=== PATIENT | female | born 1960 | race Caucasian/White ===

== ENCOUNTER 2019-07-19 10:09 | Outpatient (CLI) | payer OTHER, SELFPAY ==
--- NOTE | 2019-07-19 | CT_ITS ---
WS: [id number] CT ABDOMEN PELVIS TECHNIQUE: Contrast-enhanced CT of the abdomen and pelvis with coronal and sagittal reformatted image s. CLINICAL INFORMATION: RENAL MASS DLP: 979.[address] scans at [facility] use at least one of these dose optimization techniques: automat ed exposure control; mA and/or kV adjustment per patient size (includes targeted exams where dose is matched to clinical indication); or iterative reconstruction. FINDINGS: Comparison ultrasound earlier today. There is a large lobulated heterogeneously enhancing right upper pole renal mass measuring 7.1 x 6.1 x 10.2 CM. This appears to originate from the upper pole right k idney. Indentation on the right hepatic lobe. Right adrenal gland is not well identified. No hydronep hrosis in right kidney. Normal ureteral emptying on the delayed imaging.Enlarged adjacent aortocaval lymph nodes measuring 15 mm and 12 mm. No other visualized lymphadenopathy. Normal left adrenal gland. Normal left kidney and ureteral emptying. Multiple low-attenuation lesions in the liver are unchanged in appearance on the delayed imaging and most consistent with small hepat ic cysts. No enhancement to indicate metastatic disease. Largest hepatic cyst measures 10 mm. Enlarge ment of the right hepatic lobe. Gallbladder appears unremarkable. Normal spleen. Small esophageal hia elizabet hernia. Lung bases are well aerated. No free fluid in the pelvis. Normal caliber abdominal aorta. No inguina l lymphadenopathy. No inguinal lymphadenopathy. Vacuum disc phenomenon L5-S1. Lobulated enhancing uterus with suspected fibroid. This can be further evaluated with ultrasound. Inge pected fibroid measures 2.5 x 2.4 cm Notified Alon Garzon MD at 07/19/2019 1:[address]/CT abdomen pelvis w con* [id number] IMPRESSION: 1. Heterogeneously enhancing right upper pole renal mass consistent with neopl asm measuring 6.1 x 10.2 x 7.1 cm. Associated mass effect on the undersurface r ight hepatic lobe. 2. No hydronephrosis in right kidney. Renal veins are displaced but appear pat ent. 3. Enlarged adjacent aortocaval lymph nodes measuring 15 mm and 12 mm. 4. Low-attenuation lesions in the liver consistent with hepatic cysts. 5. Small left renal cyst. 6. Gallbladder appears unremarkable. 7. Lobulated enhancing uterus with suspected fibroid. This can be further eval uated with ultrasound. Suspected fibroid measures 2.5 x 2.4 cm
--- NOTE | 2019-07-19 09:46 | US_ITS ---
WS: [id number] ULTRASOUND ABDOMEN LIMITED CLINICAL INFORMATION: acute cholecystitis COMPARISON: None. FINDINGS: Liver Size: Normal. Craniocaudal length: 10.5 cm. Echogenicity: Normal. Surface nodularity: None. Mass (size and location): None. Bile ducts Intrahepatic ducts: Normal. Common bile duct diameter: 0.3 cm. Gallbladder Sludge Gallstones: None. Gallbladder sludge: Present Gallbladder wall thickening: None. Pericholecystic fluid: None. Sonographic Dumont sign: Absent. Pancreas Normal as visualized Right kidney: Large right renal mass associated vascularity measuring 9.0 x 6.5 x8.4 cm most consiste nt with renal cell neoplasm. CT is pending. Abdominal aorta and IVC Visualized portions are normal. Ascites: None. US/US gall bladder [id number] IMPRESSION: 1. Large right solid and vascular renal mass most consistent with renal cell n eoplasm measuring 9.0 x 6[address] is pending. 2. Sludge in the gallbladder. No cholelithiasis. No evidence of acute cholecys titis.
[2019-07-19] MEDS: iohexol 300 mg/mL 100 mL Btl IV (12:11)
== END 2019-07-19 10:10 | disposition home or self-care (01) ==
LOC: RAD 10:15
PROVIDERS: Family Provider Family Medicine; PCP Family Medicine; Visit Provider Family Medicine
DX: K81.0 Acute cholecystitis (principal); N28.89 Other specified disorders of kidney and ureter; R59.9 Enlarged lymph nodes, unspecified; K76.9 Liver disease, unspecified; N28.1 Cyst of kidney, acquired; N39.0 Urinary tract infection, site not specified
CPT/HCPCS: 74177; 76705; 80053; 81000; 85025

== ENCOUNTER 2019-10-09 14:19 | Outpatient (CLI) | payer BC, SELFPAY ==
--- NOTE | 2019-10-09 17:38 | ONC CON_ITS ---
Dr. Bai New Patient Note Patient: Jovita Beyer Unit #: [id number]: 1960 Dicatated By: Esa Bia M.D.Date of Visit: Oct 09, 2019 Onc MED New Patient/Consult Referring Physician: Francheska Rivas Chief Complaint: Renal cell carcinoma. History of Present Illness: This is a 59-year-old woman with grade 2 papillary renal cell carcinoma, stage III (pT3a, pN1, M0). She has been in good general health. She had presented in June with chills and right upper quadrant abdominal pain. An abdominal ultrasound on 07/19/2019 showed a large right renal mass measuring 9.0 x 6.5 x 8.0 cm, consistent with renal cell neoplasm. A subsequent CT abdomen/pelvis confirmed an enhancing right upper pole renal mass measuring 7.1 x 6.1 x 10.2 cm. The renal veins appeared patent. Enlarged adjacent aortocaval lymph nodes measured 15 and 12 mm. Multiple low-attenuation lesions in the liver were felt to be most consistent with small hepatic cysts. The largest measured 10 mm. Lobulated enhancing uterus had suspected fibroid measuring 2.5 x 2.4 cm. She was referred to Dr. Cortney Sepulveda, at [facility]. She had further evaluation with MRI of the abdomen on 07/31/2019. It showed a large cystic and solid mass in the superior pole of the right kidney measuring 7.6 x 9.5 x 8.0 cm, highly suspicious for primary renal neoplasm. It was noted to abut the adjacent hepatic parenchyma, direct invasion not excluded. It was also noted to abut the infrahepatic IVC with mild narrowing. The right adrenal gland was not visualized due to probable direct invasion. There was no evidence for renal vein tumoral thrombus. An enlarged right pericaval lymph node measuring 1.1 x 1.9 cm was concerning for mili metastasis. There were multiple hepatic cysts and solitary cavernous hemangioma noted within the right lobe of the liver, but without evidence for definite hepatic metastasis. Restaging chest CT on 08/22/2019 showed multiple indeterminate bilateral pulmonary nodules measuring up to 2 mm. Multiple hyper and hypoattenuating lesions in the liver were felt to be concerning for hepatic metastases and upper abdominal lymphadenopathy and left upper quadrant mesenteric soft tissue nodules were also concerning for metastases. There were multiple heterogenous thyroid lobe nodules, most suspicious in the inferior left thyroid lobe measuring approximately 12 mm. On 08/23/2019 she underwent right robotic assisted laparoscopic radical nephrectomy with right pericaval lymph node dissection and wedge liver biopsy. Pathology showed grade 2 papillary renal cell carcinoma, type 2, measuring 7.5 x 6.8 x 5.5 cm. Tumor was noted to extend into the renal sinus, and there was evidence for vascular invasion. The margins were uninvolved. There was involvement in 1 of 5 hilar lymph nodes. The liver biopsy showed benign liver with hemorrhage and no evidence of malignancy. She had an uneventful postoperative course, and she is seen now in regard to adjuvant therapy. She says she is feeling good now. She is walking with her every day and she is able to do light work at home. She has good appetite. She had a weight loss of approximately 30 pounds prior to the surgery, which she says was intentional. Her weight has been stable since the surgery. She does not have fever or night sweats, but she occasionally does feel warm at night. She has no shortness of breath, cough, or chest pain. She currently has no GI or complaints. She has a little arthritis pain, in her thumb and in her left shoulder. She does not complain of headache or dizziness. She has no focal neurologic symptoms. Past Medical History: She has a history of hypertenison, but not requiring medication for at least 8 years. Past Surgical History: She underwent right robotic-assisted, laparoscopic radical nephrectomy with right paracaval lymph node dissection and with liver wedge biopsy on 08/23/2019. She has had no prior surgeries. Medications: Cholecalciferol 1 Capsule (of 250 mcg ) Oral daily, Glucosamine HCl 1 Capsule (of 1000 mg) Tablet Oral b.i.d., Senna 1 Capsule (of 8.6 mg) Oral daily, Vitamin C 1 Capsule (of 1000 mg) Oral daily Allergies: No Known Allergies. Social History: Ms. Beyer is and she is retired. She has a history of smoking up to 1/2 pack of cigarettes daily for about 15 years. She quit smoking in July 2019. She does not drink alcohol. Family History: Father of heart attack in his 60s. Mother is in good health at age 82. Two sisters also are in good health. Review Of Symptoms: Constitutional - She is feeling good. Her energy is fair. She does some light housework and light walking daily. Her appetite is good. She had weight loss of 30 lbs. prior to surgery, which she says was intentional. Her weight recently has been stable. No fever, night sweats, hot flashes. ECOG score is 1, Eyes - No change in vision, ENMT - No hearing loss. She does report having tinnitus. No sinus congestion/drainage. No mouth sores. No sore throat or difficulty swallowing, Respiratory - No shortness of breath. No cough. No pleuritic pain or hemoptysis, Cardiovascular - No angina pain. No palpitations, Gastrointestinal - No nausea or vomiting. No heartburn or acid reflux. No diarrhea or constipation. No blood in the stool or black stools, Genitourinary (F) - No dysuria or hematuria. No urinary frequency. No urgency or incontinence, Musculoskeletal - She has some arthritis pain in her left shoulder and thumb. This is chronic for her, Integumentary - No skin complications, Neurologic - No headache or dizziness. No numbness or tingling. No other focal neurologic symptoms, Psychiatric - No anxiety or depression. No insomnia. Vital Signs: Performed on Oct 09, 2019 14:47: 0, 18.88, 1.67 sq.m, 68.00 in, 100 %, 79 /min, 20 /min, 127/77 mm(hg), 99.1 F (HIGH), and 124.2 lbs (HIGH). Physical Examination: Constitutional - She appears to be in good general health, Eyes - Sclerae nonicteric. Conjunctivae clear, ENMT - No lesions noted in the oral cavity, Neck - No mass or thyromegaly, Hematologic/Lymphatic - No cervical, clavicular, or axillary adenopathy, Respiratory - Lungs are clear with good air movement bilaterally, Cardiovascular - Heart rhythm is regular. There is no murmur, gallop, or rub noted, Abdomen - Soft and non-tender. The right upper quadrant incision appears well-healed. Liver and spleen are not enlarged. There is no abdominal mass or ascites noted and there is no inguinal adenopathy, Back/Spine - No spine or CVA tenderness noted, Extremities - No edema. Dorsalis pedis pulses are palpable bilaterally, Integumentary - No rashes. No suspicious skin lesions noted, Neurologic - No focal neurologic deficits noted. Impression: 1. Patient with grade 2 papillary renal cell carcinoma, type 2, stage III (pT3a, pN1, M0). 2. She underwent right robotic assisted, laparoscopic radical nephrectomy with right paracaval lymph node dissection and wedge liver biopsy on 08/23/2019. 3. She has a history of hypertension, not requiring medication. Plan: The pathology findings and clinical implications were reviewed with the patient. She has stage III papillary renal cell carcinoma. She has had a complete resection with the laparoscopic radical nephrectomy, but she has had increased risk for recurrence due to the renal sinus invasion and the involved hilar lymph node. As such, she would be an appropriate candidate for adjuvant therapy, preferably with immunotherapy, but only in the context of a clinical trial. The only treatment option off trial would be sunitinib, but she does not meet appropriate criteria for it, and the benefit with sunitinib is questionable to begin with. As such, I will begin a search for any available clinical trials utilizing immunotherapy. If none are available, she will just have to be followed on close observation. Signed By: Esa Bai M.D. <<Signature on File>>
== END 2019-10-09 14:20 | disposition home or self-care (01) ==
LOC: ONCMED 14:24
PROVIDERS: PCP Family Medicine; Visit Provider Internal Medicine Medical Oncology
DX: C64.1 Malignant neoplasm of right kidney, except renal pelvis (principal); C77.1 Secondary and unspecified malignant neoplasm of intrathoracic lymph nodes; Z90.5 Acquired absence of kidney; Z87.891 Personal history of nicotine dependence
CPT/HCPCS: 99205

== ENCOUNTER 2019-12-24 08:17 | Outpatient (CLI) | payer BC, SELFPAY ==
--- NOTE | 2019-12-24 08:28 | CT_ITS ---
WS: [id number] CT CHEST, ABDOMEN AND PELVIS WITH CONTRAST HISTORY: RENAL CELL CARCINOMA, status post RIGHT nephrectomy since the prior study. TECHNIQUE: Contiguous 5 mm axial imaging performed through the chest, abdomen and pelvis with IV cont rast, oral contrast has been provided. Coronal and sagittal reformats chest. Coronal and sagittal ref ormats through the abdomen and pelvis. All CT scans at [facility] use at least one of the se dose optimization techniques: automated exposure control; mA and/or kV adjustment per patient size (includes targeted exams where dose is matched to clinical indication); or iterative reconstruction. CONTRAST: Visipaque 320; 95 mL IV. DLP: 966.23 mGy.cm COMPARISON: 07/19/[address]: No pulmonary nodule, mass, pneumonia or effusion. No mediastinal or hilar adenopathy. Yancy l size aorta and pulmonary arteries. Heart size is normal. Abdomen CT: Abnormal appearance of the liver. On today's examination early imaging during arterial en hancement has been obtained. There is a lobulated hypervascular mass in the superior RIGHT lobe of th e liver measuring 3.3 x 5.2 cm. There are 2 additional hypervascular masses measuring 1.0 and 1.6 cm in the RIGHT lobe. Suspect these are benign hemangiomas with additional scattered hepatic cysts. Dao ngiomas were probably present on the prior examination but as the phase of enhancement was more delay ed these is partially filled and very difficult to visualize. Surface of the liver is irregular from cirrhosis. No bile duct dilatation. Gallbladder is negative. Pancreas is normal size. Pancreatic duct is dilated.. There is a lobulated cystic area measuring 10 mm extending from the pancreatic duct int o the posterior body of the pancreas. Spleen is normal size. No adrenal abnormalities. RIGHT kidney has been surgically removed since the prior study. No recurrent mass. No LEFT renal mass or obstruction. Mild atherosclerosis aorta. No definite lymph nodes are appreciated. There is marked fecal retention. Increased soft tissue in the RIGHT colon may be due to underdistenti on with oral contrast. Neoplastic involvement is not completely excluded. Wall thickening measures up to 8 mm in the ascending colon. Pelvic CT: Mildly enlarged heterogeneously enhancing uterus. Probably fibroid uterus with the uterus extending to the RIGHT of midline. No free fluid. Urinary bladder is moderately well distended. No osteoblastic bone disease. There are a few sclerotic foci within the bones of the pelvis which are probably bone islands. CT/CT chest abd pel w con* IMPRESSION: 1. Status post RIGHT nephrectomy since the prior study of 07/19/2019. No recurr ent mass at the renal bed. 2. Soft tissue thickening involving the ascending colon. Colitis or under dist ention with oral contrast. Tumor invasion thought less likely but still a possi bility. 3. Numerous hypervascular masses within the liver. These are probably hemangio mas. Probably present on the prior study but not as well-visualized due to late phase of imaging after contrast. There are additional cysts also. 4. No pulmonary nodules. 5. No ascites or adenopathy. 6. 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 Recommendation: Short-term, three-month, follow-up two phase CT recommended for reevaluation of the liver, pancreas and ascending colon and RIGHT renal bed. H epatic CT should be performed with delayed imaging to better evaluate the liver for hemangiomas. If there was a concern for neoplastic invasion of the colon d uring surgical nephrectomy, colonoscopy should be obtained also.
[2019-12-24] MEDS: iohexol 300 mg/mL 50 mL Btl PO (08:38)
[2019-12-24 08:47] LABS: Basophils # 0.1 10^3/uL (0.0-0.1); Basophils % 1.4 %; Eosinophils # 0.2 10^3/uL (0.0-0.8); Eosinophils % 3.6 %; Hemoglobin 13.4 g/dL (11.5-15.3); Lymphocytes # 1.7 10^3/uL (0.8-4.8); Lymphocytes % 41.1 %; Mean Corpuscular HGB Conc 32.7 g/dL (30.0-36.0); Mean Corpuscular Volume 94.9 fL (81-99); Mean Platelet Volume 8.9 fL (7.4-10.4); Monocytes # 0.3 10^3/uL (0.2-0.9); Monocytes % 7.8 %; Neutrophils # 1.93 10^3/uL (1.8-7.7); Neutrophils % 45.9 %; Nucleated Red Blood Cells % 0 %; Platelet Count 254 10^3/cmm (130-400); Red Blood Count 4.32 10^6/uL (4.1-5.3); Red Cell Distribution Width 13.1 % (12.1-15.1); White Blood Count 4.2 10^3/uL (4.0-10.0)
[2019-12-24 09:03] LABS: Alanine Aminotransferase 29 U/L (0-33); Albumin Level 4.7 g/dL (3.5-5.2); Alkaline Phosphatase 80 IU/L (35-105); Anion Gap 13.4 (5-19); Aspartate Amino Transferase 19 U/L (0-32); Blood Urea Nitrogen 24 mg/dL (8-23); Calcium 9.7 mg/dL (8.5-10.5); Carbon Dioxide 26 mmol/L (22-29); Chloride 106 mmol/L (98-107); Globulin 2.4 g/dL (1.3-4.6); Glomerular Filtration Rate 38.2 mL/min (90-130); Glucose 98 mg/dL (65-115); Osmolality Calculated 296 mOsm/kg (285-295); Potassium 4.4 mmol/L (3.5-5.1); Sodium 141 mmol/L (136-145); Total Bilirubin 0.8 mg/dL (0.15-1.2); Total Protein 7.1 g/dL (6.6-8.7)
[2019-12-24] MEDS: iohexol 300 mg/mL 100 mL Btl IV (09:48)
== END 2019-12-24 08:18 | disposition home or self-care (01) ==
LOC: CT 08:21
PROVIDERS: PCP Family Medicine; Visit Provider Internal Medicine Medical Oncology
DX: C64.1 Malignant neoplasm of right kidney, except renal pelvis (principal); Z90.5 Acquired absence of kidney; R16.0 Hepatomegaly, not elsewhere classified
CPT/HCPCS: 36415; 71260; 74177; 80053; 85025

== ENCOUNTER 2019-12-26 13:46 | Outpatient (CLI) | payer BC, SELFPAY ==
--- NOTE | 2019-12-29 20:52 | ONC FU_ITS ---
Dr. Bai Patient Follow-Up Note Patient: Jovita Beyer Unit #: [id number]: 1960 Dicatated By: Esa Bai M.D.Date of Visit:Dec 26, 2019 Onc Med Follow-up/Prog Note Chief Complaint: Renal cell carcinoma. History of Present Illness: This is a 59-year-old woman with grade 2 papillary renal cell carcinoma, stage III (pT3a, pN1, M0). She has been in good general health. She had presented in June with chills and right upper quadrant abdominal pain. An abdominal ultrasound on 07/19/2019 showed a large right renal mass measuring 9.0 x 6.5 x 8.0 cm, consistent with renal cell neoplasm. A subsequent CT abdomen/pelvis confirmed an enhancing right upper pole renal mass measuring 7.1 x 6.1 x 10.2 cm. The renal veins appeared patent. Enlarged adjacent aortocaval lymph nodes measured 15 and 12 mm. Multiple low-attenuation lesions in the liver were felt to be most consistent with small hepatic cysts. The largest measured 10 mm. Lobulated enhancing uterus had suspected fibroid measuring 2.5 x 2.4 cm. She was referred to Dr. Cortney Sepulveda, at [facility]. She had further evaluation with MRI of the abdomen on 07/31/2019. It showed a large cystic and solid mass in the superior pole of the right kidney measuring 7.6 x 9.5 x 8.0 cm, highly suspicious for primary renal neoplasm. It was noted to abut the adjacent hepatic parenchyma, direct invasion not excluded. It was also noted to abut the infrahepatic IVC with mild narrowing. The right adrenal gland was not visualized due to probable direct invasion. There was no evidence for renal vein tumoral thrombus. An enlarged right pericaval lymph node measuring 1.1 x 1.9 cm was concerning for mili metastasis. There were multiple hepatic cysts and solitary cavernous hemangioma noted within the right lobe of the liver, but without evidence for definite hepatic metastasis. Restaging chest CT on 08/22/2019 showed multiple indeterminate bilateral pulmonary nodules measuring up to 2 mm. Multiple hyper and hypoattenuating lesions in the liver were felt to be concerning for hepatic metastases and upper abdominal lymphadenopathy and left upper quadrant mesenteric soft tissue nodules were also concerning for metastases. There were multiple heterogenous thyroid lobe nodules, most suspicious in the inferior left thyroid lobe measuring approximately 12 mm. On 08/23/2019 she underwent right robotic assisted laparoscopic radical nephrectomy with right pericaval lymph node dissection and wedge liver biopsy. Pathology showed grade 2 papillary renal cell carcinoma, type 2, measuring 7.5 x 6.8 x 5.5 cm. Tumor was noted to extend into the renal sinus, and there was evidence for vascular invasion. The margins were uninvolved. There was involvement in 1 of 5 hilar lymph nodes. The liver biopsy showed benign liver with hemorrhage and no evidence of malignancy. She had an uneventful postoperative course. I had seen her initially on 10/09/2019 in regard to possible adjuvant therapy. With non-clear cell histology, there was no approved treatment to offer her. Following the visit, we began a fairly exhaustive search for active clinical trials, and we found none. In the meantime, it also reached out to pharmaceutical companies, and she did get approved for off label use of Keytruda. She is seen for a follow-up visit. She is feeling good generally. She has no complaints other than some mild arthritis in her hands and in her left shoulder. It is managed adequately with glucosamine. Medications: Cholecalciferol 1 Capsule (of 250 mcg ) Oral daily, Glucosamine HCl 1 Capsule (of 1000 mg) Tablet Oral b.i.d., Senna 1 Capsule (of 8.6 mg) Oral daily, Vitamin C 1 Capsule (of 1000 mg) Oral daily Allergies: No Known Allergies. Review of Systems: Constitutional - She is feeling good generally and her energy is good. She has normal activity without resitrctions. Her appetite is good and her weight is up 6 pounds from inital visit. No fevers. She has occasional episodes of feeling warm. ECOG score is 0, ENMT - No sinus congestion/drainage. No mouth sores. No sore throat or difficulty swallowing, Hematologic/Lymphatic - No abnormal bruising or bleeding, Respiratory - No shortness of breath. No cough. No pleuritic pain or hemoptysis, Cardiovascular - No angina pain. No palpitations, Gastrointestinal - No nausea or vomiting. No heartburn or acid reflux. No diarrhea or constipation. No blood in the stool or black stools, Genitourinary (F) - No dysuria or hematuria. No urinary frequency. No urgency or incontinence, Musculoskeletal - She has arthitic pain in her hands and her left shoulder, adequately managed with Glucosamine, Neurologic - No headache or dizziness. No numbness or tingling. No other focal neurologic symptoms, Psychiatric - No anxiety or depression. No insomnia. Vital Signs: Performed on Dec 26, 2019 14:25 Height - 68.00 in Weight - 130.6 lbs (HIGH) BSA - 1.71 sq.m BMI - 19.86 Temperature - 98.3 F (LOW) Pulse - 70 /min Respiration - 18 /min BP - 155/68 mm(hg) (HIGH) O2 Sat - 97 % Pain - 0 Physical Examination: Constitutional - She appears to be in good general health, Eyes - Sclerae nonicteric. Conjunctivae clear, ENMT - No lesions noted in the oral cavity, Hematologic/Lymphatic - No cervical, clavicular, or axillary adenopathy, Respiratory - Lungs are clear with good air movement bilaterally, Cardiovascular - Heart rhythm is regular. There is no murmur, gallop, or rub noted, Abdomen - Soft. Liver and spleen are not enlarged. There is no abdominal mass or ascites noted and there is no inguinal adenopathy, Extremities - No edema, Neurologic - No focal neurologic deficits noted. Impression: 1. Patient with grade 2 papillary renal cell carcinoma, type 2, stage III (pT3a, pN1, M0). 2. She underwent right robotic assisted, laparoscopic radical nephrectomy with right paracaval lymph node dissection and wedge liver biopsy on 08/23/2019. 3. She has a history of hypertension, not requiring medication. We have discussed the fact that with a relatively large primary tumor and with lymph node involvement, she is definitely at high risk for recurrence. With non-clear cell histology there is no approved adjuvant therapy. We unfortunately were not able to find an active clinical trial for which she would be eligible for participation. She has been given approval for off label use of Keytruda. We discussed the fact that there is no documented benefit for treating [id number] renal cell carcinoma with immunotherapy and certainly no data to indicate benefit in the adjuvant setting. Nonetheless, both the patient and her are quite adamant that she would prefer to have treatment without proven benefit, even at the risk of side effects, rather than do nothing. Plan: She is aware that there are risks for immune mediated toxicities with pembrolizumab which may include enteritis, pneumonitis, endocrine dysfunction, hepatic dysfunction, renal dysfunction, and skin toxicities, among others. As she is highly motivated to have treatment, she will be given the option of treatment with pembrolizumab 200 mg by IV infusion every 3 weeks for 1 year. Signed By: Esa Bai M.D. <<Signature on File>>
== END 2019-12-26 13:47 | disposition home or self-care (01) ==
LOC: ONCMED 13:48
PROVIDERS: PCP Family Medicine; Visit Provider Internal Medicine Medical Oncology
DX: C64.1 Malignant neoplasm of right kidney, except renal pelvis (principal); I10 Essential (primary) hypertension; Z79.899 Other long term (current) drug therapy
CPT/HCPCS: 99214

== ENCOUNTER 2020-01-03 06:08 | Outpatient (CLI) | payer BC, SELFPAY ==
[2020-01-03] MEDS: sodium chloride 0.9% 250 ML 75 ML IV (13:55)
== END 2020-01-03 06:09 | disposition home or self-care (01) ==
LOC: ONCMED 06:09
PROVIDERS: PCP Family Medicine; Visit Provider Internal Medicine Medical Oncology
DX: Z51.12 Encounter for antineoplastic immunotherapy (principal); C64.1 Malignant neoplasm of right kidney, except renal pelvis
CPT/HCPCS: 96413; J7050; J9271

== ENCOUNTER 2020-01-09 10:09 | Outpatient (CLI) | payer BC, SELFPAY ==
--- NOTE | 2020-01-09 10:25 | MM_ITS ---
WS: [id number] BILATERAL DIGITAL SCREENING MAMMOGRAM WITH CAD CLINICAL INFORMATION: SCREENING HISTORY: Screening mammogram. No current complaints. COMPARISON: TECHNIQUE: Bilateral CC and MLO. FINDINGS: The breast are composed of extremely dense tissue, which can limit the detection of small underlying mass lesions. No suspicious focal mass, asymmetry, calcifications, or architectural distortion. No ev idence of malignancy. MM/[place] [id number] IMPRESSION: BI-RADS: 1-Negative FOLLOW UP: 1 Year Follow-up Recommend return to annual screening mammography.
== END 2020-01-09 10:10 | disposition home or self-care (01) ==
LOC: RADSHAW 10:14
PROVIDERS: PCP Family Medicine; Visit Provider Obstetrics & Gynecology
DX: Z12.31 Encounter for screening mammogram for malignant neoplasm of breast (principal)
CPT/HCPCS: 77067

== ENCOUNTER → 2020-01-14 14:05 | Outpatient (BNVA) | payer BC, SELFPAY | PROVIDERS: PCP Family Medicine; Visit Provider Obstetrics & Gynecology | DX: Z12.4 Encounter for screening for malignant neoplasm of cervix (principal) | CPT/HCPCS: 88175 ==

== ENCOUNTER 2020-01-23 06:12 | Outpatient (CLI) | payer BC, SELFPAY ==
[2020-01-23 09:23] LABS: Basophils # 0.1 10^3/uL (0.0-0.1); Basophils % 1.5 %; Eosinophils # 0.2 10^3/uL (0.0-0.8); Eosinophils % 5.3 %; Hematocrit 40.1 % (37.0-47.0); Hemoglobin 13.2 g/dL (11.5-15.3); Lymphocytes # 1.6 10^3/uL (0.8-4.8); Lymphocytes % 40.5 %; Mean Corpuscular HGB Conc 32.9 g/dL (30.0-36.0); Mean Corpuscular Hemoglobin 31.5 pg (28.0-34.0); Mean Corpuscular Volume 95.7 fL (81-99); Monocytes # 0.3 10^3/uL (0.2-0.9); Monocytes % 8.1 %; Neutrophils # 1.75 10^3/uL (1.8-7.7); Neutrophils % 44.6 %; Nucleated Red Blood Cells % 0 %; Platelet Count 243 10^3/cmm (130-400); Red Blood Count 4.19 10^6/uL (4.1-5.3); Red Cell Distribution Width 13.1 % (12.1-15.1); White Blood Count 3.9 10^3/uL (4.0-10.0)
[2020-01-23 10:00] LABS: Alanine Aminotransferase 27 U/L (0-33); Albumin Level 4.7 g/dL (3.5-5.2); Alkaline Phosphatase 95 IU/L (35-105); Anion Gap 13.3 (5-19); Aspartate Amino Transferase 20 U/L (0-32); Blood Urea Nitrogen 22 mg/dL (8-23); Calcium 9.7 mg/dL (8.5-10.5); Carbon Dioxide 28 mmol/L (22-29); Chloride 102 mmol/L (98-107); Globulin 2.6 g/dL (1.3-4.6); Glomerular Filtration Rate 35.3 mL/min (90-130); Glucose 98 mg/dL (65-115); Osmolality Calculated 291 mOsm/kg (285-295); Potassium 4.3 mmol/L (3.5-5.1); Sodium 139 mmol/L (136-145); Thyroid Stimulating Hormone 1.86 uIU/mL (0.27-4.20); Total Bilirubin 0.8 mg/dL (0.15-1.2); Total Protein 7.3 g/dL (6.6-8.7)
== END 2020-01-23 06:13 | disposition home or self-care (01) ==
LOC: ONCMED 06:13
PROVIDERS: PCP Family Medicine; Visit Provider Internal Medicine Medical Oncology
DX: C64.1 Malignant neoplasm of right kidney, except renal pelvis (principal)
CPT/HCPCS: 36415; 80053; 84443; 85025

== ENCOUNTER 2020-01-24 05:45 | Outpatient (CLI) | payer BC, SELFPAY ==
[2020-01-24] MEDS: sodium chloride 0.9% 250 ML 75 ML IV (08:50)
--- NOTE | 2020-01-24 08:50 | ONC FU_ITS ---
Dr. Bai Patient Follow-Up Note Patient: Jovita Byeer Unit #: [id number]: 1960 Dicatated By: Esa Bai M.D.Date of Visit:Jan 24, 2020 Onc Med Follow-up/Prog Note Chief Complaint: Renal cell carcinoma. History of Present Illness: This is a 59-year-old woman with grade 2 papillary renal cell carcinoma, stage III (pT3a, pN1, M0). She has been in good general health. She had presented in June with chills and right upper quadrant abdominal pain. An abdominal ultrasound on 07/19/2019 showed a large right renal mass measuring 9.0 x 6.5 x 8.0 cm, consistent with renal cell neoplasm. A subsequent CT abdomen/pelvis confirmed an enhancing right upper pole renal mass measuring 7.1 x 6.1 x 10.2 cm. The renal veins appeared patent. Enlarged adjacent aortocaval lymph nodes measured 15 and 12 mm. Multiple low-attenuation lesions in the liver were felt to be most consistent with small hepatic cysts. The largest measured 10 mm. Lobulated enhancing uterus had suspected fibroid measuring 2.5 x 2.4 cm. She was referred to Dr. Cortney Sepulveda, at [facility]. She had further evaluation with MRI of the abdomen on 07/31/2019. It showed a large cystic and solid mass in the superior pole of the right kidney measuring 7.6 x 9.5 x 8.0 cm, highly suspicious for primary renal neoplasm. It was noted to abut the adjacent hepatic parenchyma, direct invasion not excluded. It was also noted to abut the infrahepatic IVC with mild narrowing. The right adrenal gland was not visualized due to probable direct invasion. There was no evidence for renal vein tumoral thrombus. An enlarged right pericaval lymph node measuring 1.1 x 1.9 cm was concerning for mili metastasis. There were multiple hepatic cysts and solitary cavernous hemangioma noted within the right lobe of the liver, but without evidence for definite hepatic metastasis. Restaging chest CT on 08/22/2019 showed multiple indeterminate bilateral pulmonary nodules measuring up to 2 mm. Multiple hyper and hypoattenuating lesions in the liver were felt to be concerning for hepatic metastases and upper abdominal lymphadenopathy and left upper quadrant mesenteric soft tissue nodules were also concerning for metastases. There were multiple heterogenous thyroid lobe nodules, most suspicious in the inferior left thyroid lobe measuring approximately 12 mm. On 08/23/2019 she underwent right robotic assisted laparoscopic radical nephrectomy with right pericaval lymph node dissection and wedge liver biopsy. Pathology showed grade 2 papillary renal cell carcinoma, type 2, measuring 7.5 x 6.8 x 5.5 cm. Tumor was noted to extend into the renal sinus, and there was evidence for vascular invasion. The margins were uninvolved. There was involvement in 1 of 5 hilar lymph nodes. The liver biopsy showed benign liver with hemorrhage and no evidence of malignancy. She had an uneventful postoperative course. I had seen her initially on 10/09/2019 in regard to possible adjuvant therapy. With non-clear cell histology, there was no approved treatment to offer her. Following the visit, we began a fairly exhaustive search for active clinical trials, and we found none. In the meantime, it also reached out to pharmaceutical companies, as she was strongly motivated to have some form of adjuvant therapy. She subsequently was approved for off label use of Keytruda, and she was given the option to have a year of adjuvant therapy at a standard dose of 200 mg by IV infusion every 3 weeks. She has a previous history of hypertension. She has had no other ongoing medical illnesses. She also has a history of smoking for 15 years, up to 1/2 pack of cigarettes daily. She quit smoking in July 2019. INTERIM HISTORY: She began cycle 1 of pembrolizumab on 01/03/2020. She tolerated it without acute toxicity. She is seen for a follow-up visit. She has been feeling good generally. At times she has had fatigue, but her energy lately has been good. She has normal activity. Her appetite is good and her weight is stable. She has no fever or night sweats. She has no shortness of breath, cough, or chest pain. She currently has no GI or complaints. She has no significant joint or bone pain. She does not complain of headache or dizziness. She has no focal neurologic symptoms. She has had no skin rash or other skin changes. Medications: Cholecalciferol 1 Capsule (of 250 mcg ) Oral daily, Glucosamine HCl 1 Capsule (of 1000 mg) Tablet Oral b.i.d., Senna 1 Capsule (of 8.6 mg) Oral daily, Vitamin C 1 Capsule (of 1000 mg) Oral daily Allergies: No Known Allergies. Review of Systems: Constitutional - Her energy lately has been good, though at times she has had fatigue. Appetite is good and weight is stable. No fever. She has some hot flashes and sweating at night. ECOG score is 0, ENMT - She has had a little bit of sinus congestion/drainage, attributable to the weather. No mouth sores. No sore throat or difficulty swallowing, Hematologic/Lymphatic - No abnormal bruising or bleeding, Respiratory - No shortness of breath. No cough. No pleuritic pain or hemoptysis, Cardiovascular - No angina pain. No palpitations, Gastrointestinal - No nausea or vomiting. No heartburn or acid reflux. No diarrhea or constipation. No blood in the stool or black stools, Genitourinary (F) - No dysuria or hematuria. No urinary frequency. No urgency or incontinence, Musculoskeletal - No joint or bone pain, Integumentary - No skin rash, Neurologic - No headache or dizziness. No numbness or tingling. No other focal neurologic symptoms, Psychiatric - No anxiety or depression. No insomnia. Vital Signs: Performed on Jan 24, 2020 08:08 Height - 68.00 in Weight - 136.2 lbs (HIGH) BSA - 1.74 sq.m BMI - 20.71 Temperature - 97.4 F (LOW) Pulse - 91 /min Respiration - 17 /min BP - 133/66 mm(hg) O2 Sat - 99 % Pain - 0 Physical Examination: Constitutional - She looks good generally, Eyes - Sclerae nonicteric. Conjunctivae clear, ENMT - No lesions noted in the oral cavity, Hematologic/Lymphatic - No cervical, clavicular, or axillary adenopathy, Respiratory - Lungs are clear with good air movement bilaterally, Cardiovascular - Heart rhythm is regular. There is no murmur, gallop, or rub noted, Abdomen - Soft. Liver and spleen are not enlarged. There is no abdominal mass or ascites noted and there is no inguinal adenopathy, Extremities - No edema, Neurologic - No focal neurologic deficits noted. Lab/Imaging: Test performed on Jan 23, 2020 09:05 Sodium 139 mmol/L TSH 1.86 uIU/mL Potassium 4.3 mmol/L Chloride 102 mmol/L CO2 28 mmol/L Anion Gap 13.3 BUN 22 mg/dL Creatinine 1.5 mg/dL Cr Clearance (Est) 36.8300 mL/min eGFR 35.3 mL/min Glucose 98 mg/dL Osmolality - Calculated 291 mOsm/kg Calcium 9.7 mg/dL Protein, Total 7.3 g/dL Albumin 4.7 g/dL Globulin 2.6 g/dL Bilirubin, Total 0.8 mg/dL ALT (SGPT) 27 U/L AST (SGOT) 20 U/L Alkaline Phosphatase 95 IU/L Neutrophils 1.75 10 3/uL Eosinophils 0.2 10 3/uL Basophils 0.1 10 3/uL Neutrophil % 44.6 % Eosinophil % 5.3 % Basophils % 1.5 % NRBC % 0 % Impression: 1. Patient with grade 2 papillary renal cell carcinoma, type 2, stage III (pT3a, pN1, M0). 2. She underwent right robotic assisted, laparoscopic radical nephrectomy with right paracaval lymph node dissection and wedge liver biopsy on 08/23/2019. 3. She has a history of hypertension, not requiring medication. In the setting of a relatively large primary tumor and with lymph node involvement, she was advised that she was at high risk for recurrence. However, with non-clear cell histology there was no approved adjuvant therapy, and we were unable to find an active clinical trial for which she was eligible for participation. She She was strongly motivated to have some form of adjuvant therapy, and we were then able to get approval for off label use of Keytruda. She began cycle 1 of adjuvant therapy with pembrolizumab on 01/03/2020. She tolerated it without acute toxicity, and at this point she has no apparent side effects. Plan: She will proceed with cycle 2 of adjuvant pembrolizumab at 200 mg by IV infusion. She will return for treatment in 3 weeks and for a follow-up visit in 6 weeks. Signed By: Esa Bai M.D. <<Signature on File>>
== END 2020-01-24 05:46 | disposition home or self-care (01) ==
LOC: ONCMED 05:46
PROVIDERS: PCP Family Medicine; Visit Provider Internal Medicine Medical Oncology
DX: Z51.12 Encounter for antineoplastic immunotherapy (principal); C64.1 Malignant neoplasm of right kidney, except renal pelvis; C77.2 Secondary and unspecified malignant neoplasm of intra-abdominal lymph nodes; I10 Essential (primary) hypertension; Z90.5 Acquired absence of kidney; Z79.899 Other long term (current) drug therapy
CPT/HCPCS: 96413; 99214; J7050; J9271

== ENCOUNTER 2020-02-14 06:03 | Outpatient (CLI) | payer BC, SELFPAY | END 2020-02-14 06:04 | disposition home or self-care (01) | LOC: ONCMED 06:04 | PROVIDERS: PCP Family Medicine; Visit Provider Internal Medicine Medical Oncology | DX: Z51.12 Encounter for antineoplastic immunotherapy (principal); C64.1 Malignant neoplasm of right kidney, except renal pelvis | CPT/HCPCS: 96413; J7050; J9271 ==

== ENCOUNTER 2020-03-26 12:32 | Outpatient (CLI) | payer BC, SELFPAY ==
[2020-03-26 13:19] LABS: Basophils # 0.1 10^3/uL (0.0-0.1); Basophils % 1.3 %; Eosinophils # 0.1 10^3/uL (0.0-0.8); Eosinophils % 1.8 %; Hematocrit 39.7 % (37.0-47.0); Lymphocytes # 1.2 10^3/uL (0.8-4.8); Lymphocytes % 26.5 %; Mean Corpuscular HGB Conc 32.7 g/dL (30.0-36.0); Mean Corpuscular Volume 97.8 fL (81-99); Mean Platelet Volume 9.3 fL (7.4-10.4); Monocytes # 0.3 10^3/uL (0.2-0.9); Monocytes % 7.2 %; Neutrophils # 2.81 10^3/uL (1.8-7.7); Nucleated Red Blood Cells % 0 %; Platelet Count 278 10^3/cmm (130-400); Red Blood Count 4.06 10^6/uL (4.1-5.3); Red Cell Distribution Width 12.8 % (12.1-15.1); White Blood Count 4.5 10^3/uL (4.0-10.0)
[2020-03-26 13:50] LABS: Alanine Aminotransferase 14 U/L (0-33); Albumin Level 4.5 g/dL (3.5-5.2); Alkaline Phosphatase 95 IU/L (35-105); Anion Gap 13.2 (5-19); Aspartate Amino Transferase 13 U/L (0-32); Blood Urea Nitrogen 14 mg/dL (8-23); Calcium 9.5 mg/dL (8.5-10.5); Carbon Dioxide 27 mmol/L (22-29); Chloride 103 mmol/L (98-107); Globulin 2.5 g/dL (1.3-4.6); Glomerular Filtration Rate 35.2 mL/min (90-130); Glucose 112 mg/dL (65-115); Osmolality Calculated 289 mOsm/kg (285-295); Potassium 4.2 mmol/L (3.5-5.1); Sodium 139 mmol/L (136-145); Thyroid Stimulating Hormone 1.06 uIU/mL (0.27-4.20); Total Bilirubin 0.7 mg/dL (0.15-1.2)
[2020-03-26 14:32] LABS: Free T4 Free Thyroxine 1.13 ng/dL (0.82-1.77)
== END 2020-03-26 12:33 | disposition home or self-care (01) ==
LOC: ONCMED 12:34
PROVIDERS: PCP Family Medicine; Visit Provider Internal Medicine Medical Oncology
DX: C64.1 Malignant neoplasm of right kidney, except renal pelvis (principal); E03.9 Hypothyroidism, unspecified; Z51.81 Encounter for therapeutic drug level monitoring
CPT/HCPCS: 36591; 80053; 84439; 84443; 85025

== ENCOUNTER 2020-03-27 06:06 | Outpatient (CLI) | payer BC, SELFPAY ==
--- NOTE | 2020-04-01 22:10 | ONC FU_ITS ---
[facility] Patient Note Patient: Jovita Beyer Unit #: [id number]: 1960 Dictated By: Dorothy HayesDate of Visit: Mar 27, 2020 Onc MED Follow-Up/Prog Note Chief Complaint: Renal cell carcinoma. History of Present Illness: Mrs Beyer is a 60-year-old woman with grade 2 papillary renal cell carcinoma, stage III (pT3a, pN1, M0). She has been in good general health. She had presented in June with chills and right upper quadrant abdominal pain. An abdominal ultrasound on 07/19/2019 showed a large right renal mass measuring 9.0 x 6.5 x 8.0 cm, consistent with renal cell neoplasm. A subsequent CT abdomen/pelvis confirmed an enhancing right upper pole renal mass measuring 7.1 x 6.1 x 10.2 cm. The renal veins appeared patent. Enlarged adjacent aortocaval lymph nodes measured 15 and 12 mm. Multiple low-attenuation lesions in the liver were felt to be most consistent with small hepatic cysts. The largest measured 10 mm. Lobulated enhancing uterus had suspected fibroid measuring 2.5 x 2.4 cm. She was referred to Dr. Cortney Sepulveda, at [facility]. She had further evaluation with MRI of the abdomen on 07/31/2019. It showed a large cystic and solid mass in the superior pole of the right kidney measuring 7.6 x 9.5 x 8.0 cm, highly suspicious for primary renal neoplasm. It was noted to abut the adjacent hepatic parenchyma, direct invasion not excluded. It was also noted to abut the infrahepatic IVC with mild narrowing. The right adrenal gland was not visualized due to probable direct invasion. There was no evidence for renal vein tumoral thrombus. An enlarged right pericaval lymph node measuring 1.1 x 1.9 cm was concerning for mili metastasis. There were multiple hepatic cysts and solitary cavernous hemangioma noted within the right lobe of the liver, but without evidence for definite hepatic metastasis. Restaging chest CT on 08/22/2019 showed multiple indeterminate bilateral pulmonary nodules measuring up to 2 mm. Multiple hyper and hypoattenuating lesions in the liver were felt to be concerning for hepatic metastases and upper abdominal lymphadenopathy and left upper quadrant mesenteric soft tissue nodules were also concerning for metastases. There were multiple heterogenous thyroid lobe nodules, most suspicious in the inferior left thyroid lobe measuring approximately 12 mm. On 08/23/2019 she underwent right robotic assisted laparoscopic radical nephrectomy with right pericaval lymph node dissection and wedge liver biopsy. Pathology showed grade 2 papillary renal cell carcinoma, type 2, measuring 7.5 x 6.8 x 5.5 cm. Tumor was noted to extend into the renal sinus, and there was evidence for vascular invasion. The margins were uninvolved. There was involvement in 1 of 5 hilar lymph nodes. The liver biopsy showed benign liver with hemorrhage and no evidence of malignancy. She had an uneventful postoperative course. Dr Bai had seen her initially on 10/09/2019 in regard to possible adjuvant therapy. With non-clear cell histology, there was no approved treatment to offer her. Following the visit, we began a fairly exhaustive search for active clinical trials, and we found none. In the meantime, we also reached out to pharmaceutical companies, as she was strongly motivated to have some form of adjuvant therapy. She subsequently was approved for off label use of Keytruda, and she was given the option to have a year of adjuvant therapy at a standard dose of 200 mg by IV infusion every 3 weeks. She has a previous history of hypertension. She has had no other ongoing medical illnesses. She also has a history of smoking for 15 years, up to 1/2 pack of cigarettes daily. She quit smoking in July 2019. INTERIM HISTORY: She began cycle 1 of pembrolizumab on 01/03/2020. She tolerated it without acute toxicity. Her last pembrolizumab was given on 02/14/2020 at 200 mg. She is here today for follow-up and consideration of cycle 4 pembrolizumab. She states overall she is doing well. She states she has not had any fever or chills. She is had no known Covid exposure or symptoms or recent testing. She states her appetite is good. Her energy is fair. She denies any worsening shortness of breath orthopnea. She denies any chest pain or palpitations. She has had no pneumonitis symptoms. She denies diarrhea or abdominal pain. She denies any constipation. She states her urinary function is normal for her as well. She denies any new pain. Overall she states she feels that she is doing good. She states that she has not had treatment since 02/14/[address] Bai said we were going to 6-week treatments . In review of physician orders she was due for pembrolizumab in 3 weeks from the 02/14/2020 visit and follow-up in 6 weeks and repeat pembrolizumab. Her ECOG is 0. Past Medical History: History of hypertenison Past Surgical History: Right laparoscopic nephrectomy, paracaval lymph node dissection, liver biopsy in 2019 Allergies: No Known Allergies. Medications: Cholecalciferol 1 Capsule (of 250 mcg ) Oral daily Glucosamine HCl 1 Capsule (of 1000 mg) Tablet Oral b.i.d. Senna 1 Capsule (of 8.6 mg) Oral daily Vitamin C 1 Capsule (of 1000 mg) Oral daily Family History: Ms. Beyer's mother is alive. Ms. Beyer's father at age 65: myocardial infarction. Father of heart attack in his 60s. Mother is in good health at age 82. Two sisters also are in good health. Social History: Ms. Beyer is and she is retired. Ms. Beyer quit smoking less than one year ago but had smoked for 15 years. She has no history of drinking. Ms. Beyer reports the following support systems: lives with spouse, significant other, family, or friends, lives in own house, supportive family/friends willing to assist with needs, and adequate transportation available for expected visits. Her diet consists of regular meals. She indicates her activity level as: regular exercise. She has a history of smoking up to 1/2 pack of cigarettes daily for about 15 years. She quit smoking in July 2019. She does not drink alcohol. Review Of Symptoms: Constitutional Denies fevers, chills, night sweats, excessive fatigue or weight loss. Allergic/Immunologic No reactions. Eyes Denies significant visual changes. No diplopia. No amaurosis. ENMT Denies changes in hearing, sore throat, mouth sores, difficulty or changes in swallowing ability, and/or sinus drainage. Hematologic/Lymphatic Denies easy bruising or bleeding. The patient denies any tender or palpable lymph nodes. Respiratory Denies dyspnea on exertion, chest pain, cough or hemoptysis. Denies orthopnea. Cardiovascular Denies anginal chest pain, palpitations or orthopnea. Gastrointestinal Denies nausea, vomiting, diarrhea, GI bleeding, or constipation. Denies change in bowel habits and/or stool color, no heartburn or early satiety. Genitourinary (F) No hematuria, hesitancy, incontinence, vaginal bleeding, discharge or other problems with urination. Musculoskeletal Denies joint pain, swelling or redness. No decreased range of motion. Integumentary Denies chronic rashes, inflammation, ulcerations or skin changes. Neurologic Denies headache, blurred vision, and no areas of focal weakness or numbness. Normal gait. No sensory problems. Psychiatric Denies insomnia, depression, oswaldo or mood swings. Vital Signs: Performed on Mar 27, 2020 10:08 Height - 68.00 in Weight - 135.2 lbs (LOW) BSA - 1.73 sq.m BMI - 20.56 Temperature - 98.7 F Pulse - 76 /min Respiration - 18 /min BP - 120/80 mm(hg) O2 Sat - 98 % Pain - .0,0 - Fully active, able to carry on all predisease activities without restrictions. (ECOG) Physical Examination: Constitutional Alert, oriented, no acute distress. Skin pink, warm and dry. Head Normocephalic; atraumatic. Eyes Conjunctivae and sclerae are clear and without icterus. Pupils are reactive and equal. Neck Supple without masses or thyromegaly. No jugular venous distension. Hematologic/Lymphatic No petechiae or purpura. No tender or palpable lymph nodes in the cervical or supraclavicular areas. Respiratory Lungs are clear to auscultation without rhonchi or wheezing. Cardiovascular Regular rate and rhythm of heart without murmurs,clicks, gallops or rubs. Back/Spine Non-tender to palpation. Extremities No visible deformities, no cyanosis, clubbing or edema. Musculoskeletal No tenderness or swelling, normal range of motion without obvious weakness. Integumentary No rashes or lesions. Neurologic No sensory or motor deficits, normal cerebellar function, normal gait. Psychiatric Alert and oriented times three. Coherent speech. Verbalizes understanding of our discussions today. Laboratory:Test performed on Mar 26, 2020 12:48 Sodium 139 mmol/L T4, Free 1.13 ng/dL TSH 1.06 uIU/mL Potassium 4.2 mmol/L Chloride 103 mmol/L CO2 27 mmol/L Anion Gap 13.2 BUN 14 mg/dL Creatinine 1.5 mg/dL Cr Clearance (Est) 37.65 mL/min eGFR 35.2 mL/min Glucose 112 mg/dL Osmolality - Calculated 289 mOsm/kg Calcium 9.5 mg/dL Protein, Total 7.0 g/dL Albumin 4.5 g/dL Globulin 2.5 g/dL Bilirubin, Total 0.7 mg/dL ALT (SGPT) 14 U/L AST (SGOT) 13 U/L Alkaline Phosphatase 95 IU/L WBC 4.5 10 3/uL RBC 4.06 10 6/uL HGB 13.0 g/dL HCT 39.7 % MCV 97.8 fL MCH 32.0 pg MCHC 32.7 g/dL RDW 12.8 % Platelet Count 278 10 3/cmm MPV 9.3 fL Neutrophils 2.81 10 3/uL Lymphocytes 1.2 10 3/uL Monocytes 0.3 10 3/uL Eosinophils 0.1 10 3/uL Basophils 0.1 10 3/uL Neutrophil % 63.0 % Lymphocyte % 26.5 % Monocyte % 7.2 % Eosinophil % 1.8 % Basophils % 1.3 % NRBC % 0 % Impression: 1. Patient with grade 2 papillary renal cell carcinoma, type 2, stage III (pT3a, pN1, M0). 2. She underwent right robotic assisted, laparoscopic radical nephrectomy with right paracaval lymph node dissection and wedge liver biopsy on 08/23/2019. 3. She has a history of hypertension, not requiring medication. In the setting of a relatively large primary tumor and with lymph node involvement, she was advised that she was at high risk for recurrence. However, with non-clear cell histology there was no approved adjuvant therapy, and we were unable to find an active clinical trial for which she was eligible for participation. She She was strongly motivated to have some form of adjuvant therapy, and we were then able to get approval for off label use of Keytruda. She began cycle 1 of adjuvant therapy with pembrolizumab on 01/03/2020. She tolerated it without acute toxicity, and at this point she has no apparent side effects. Plan: 1. Proceed with cycle 4 pembrolizumab. We are able to give her the 400 mg - 6-week dosing today. 2. We will follow up with the pharmaceutical compassionate program to see if she may continue with the 6-week dosing. 3. Labs from 03/26/2020 were reviewed in detail discussed with Ms. Beyer and a copy was given to her. WBC 4.5, hemoglobin 13, platelets 278,000 ANC is 2810. Potassium 4.2 random glucose 112 creatinine stable at 1.5 calcium 9.5 LFTs are normal TSH is 1.06 and free T4 is 1.13. 4. We will plan to see her back in 6 weeks with CBC CMP and TSH. 5. Ms. Beyer was instructed to contact us in interim should questions or problems arise. Signed By: Dorothy Hayes-, CNP Esa Bai MD <<Signature on File>>
== END 2020-03-27 06:07 | disposition home or self-care (01) ==
LOC: ONCMED 06:07
PROVIDERS: PCP Family Medicine; Visit Provider Nurse Practitioner
DX: Z51.12 Encounter for antineoplastic immunotherapy (principal); C64.1 Malignant neoplasm of right kidney, except renal pelvis; C77.2 Secondary and unspecified malignant neoplasm of intra-abdominal lymph nodes; I10 Essential (primary) hypertension; Z79.899 Other long term (current) drug therapy; Z90.5 Acquired absence of kidney
CPT/HCPCS: 96413; 99214; J7050; J9271

== ENCOUNTER 2020-04-28 07:54 | Outpatient (CLI) | payer OTHER, SELFPAY ==
--- NOTE | 2020-04-28 08:00 | CT_ITS ---
WS: [id number] CT CHEST, ABDOMEN, AND PELVIS TECHNIQUE: Contrast-enhanced CT of the chest, abdomen, and pelvis with coronal and sagittal reformatt ed images. CLINICAL INFORMATION: RENAL CELL CARCINOMA COMPARISON: CT 12/24/2019 and 07/19/2019 DLP: All [facility] scans at [facility] use at least one of these dose optimization techniques: automat ed exposure control; mA and/or kV adjustment per patient size (includes targeted exams where dose is matched to clinical indication); or iterative reconstruction. CT CHEST: Mild chronic emphysematous changes. No acute pulmonary infiltrates. No focal pneumonia or pleural flu id. Normal caliber thoracic aorta. Proximal main pulmonary arteries are normal. No mediastinal or hil ar lymphadenopathy. 10 mm low-attenuation left thyroid nodule unchanged from previous. No axillary ly mphadenopathy. CT ABDOMEN AND PELVIS: Mild diffuse fatty infiltration the liver.Again seen are numerous hypervascular hepatic lesions most likely representing cavernous hemangiomas. Additional incidental hepatic cysts. No abdominal or pelvi c lymphadenopathy. Stable Prior postoperative changes right nephrectomy. Stable pancreatic side branc h IPMN Normal portal vein and splenic vein. Small esophageal hiatal hernia. Normal spleen. Left adrenal glan d is normal. Normal left renal parenchymal enhancement. No hydronephrosis. No abdominal or pelvic lym phadenopathy. Sigmoid constipation. No evidence of small or large bowel obstruction. Pelvic varices. No inguinal ly mphadenopathy. Disc space narrowing worse L5-S1. CT/CT chest abd pel w con* IMPRESSION: 1. No evidence of disease progression. 2. No adenopathy in the chest abdomen or pelvis. 3. Stable hepatic hemangiomas and hepatic cysts. 4. Stable tiny pancreatic IPMN 5. Prior right nephrectomy. No recurrent disease in the nephrectomy bed.
[2020-04-28] MEDS: iohexol 300 mg/mL 50 mL Btl PO (08:44)
[2020-04-28] MEDS: iodixanol 320 mg/mL 100mL Btl IV (09:36)
== END 2020-04-28 07:55 | disposition home or self-care (01) ==
LOC: RADWPI 07:58
PROVIDERS: PCP Family Medicine; Visit Provider Internal Medicine Medical Oncology
DX: C64.1 Malignant neoplasm of right kidney, except renal pelvis (principal)
CPT/HCPCS: 71260; 74177; Q9967

== ENCOUNTER 2020-05-06 14:09 | Outpatient (CLI) | payer OTHER, SELFPAY ==
[2020-05-06 15:01] LABS: Basophils # 0.1 10^3/uL (0.0-0.1); Basophils % 1.2 %; Eosinophils # 0.4 10^3/uL (0.0-0.8); Eosinophils % 6.3 %; Hematocrit 40.7 % (37.0-47.0); Hemoglobin 13.6 g/dL (11.5-15.3); Lymphocytes # 1.5 10^3/uL (0.8-4.8); Lymphocytes % 24.8 %; Mean Corpuscular HGB Conc 33.4 g/dL (30.0-36.0); Mean Corpuscular Hemoglobin 32.5 pg (28.0-34.0); Mean Corpuscular Volume 97.4 fL (81-99); Mean Platelet Volume 9.5 fL (7.4-10.4); Monocytes # 0.4 10^3/uL (0.2-0.9); Monocytes % 7.5 %; Neutrophils # 3.49 10^3/uL (1.8-7.7); Neutrophils % 59.9 %; Nucleated Red Blood Cells % 0 %; Platelet Count 276 10^3/cmm (130-400); Red Blood Count 4.18 10^6/uL (4.1-5.3); Red Cell Distribution Width 12.6 % (12.1-15.1); White Blood Count 5.8 10^3/uL (4.0-10.0)
[2020-05-06 15:32] LABS: Alanine Aminotransferase 15 U/L (0-33); Albumin Level 4.4 g/dL (3.5-5.2); Alkaline Phosphatase 99 IU/L (35-105); Anion Gap 14.4 (5-19); Aspartate Amino Transferase 13 U/L (0-32); Blood Urea Nitrogen 17 mg/dL (8-23); Calcium 9.4 mg/dL (8.5-10.5); Carbon Dioxide 26 mmol/L (22-29); Chloride 103 mmol/L (98-107); Globulin 2.8 g/dL (1.3-4.6); Glomerular Filtration Rate 41.5 mL/min (90-130); Glucose 96 mg/dL (65-115); Osmolality Calculated 289 mOsm/kg (285-295); Potassium 4.4 mmol/L (3.5-5.1); Sodium 139 mmol/L (136-145); Thyroid Stimulating Hormone 1.73 uIU/mL (0.27-4.20); Total Bilirubin 0.6 mg/dL (0.15-1.2); Total Protein 7.2 g/dL (6.6-8.7)
== END 2020-05-06 14:10 | disposition home or self-care (01) ==
LOC: ONCMED 14:10
PROVIDERS: PCP Family Medicine; Visit Provider Internal Medicine Medical Oncology
DX: C64.1 Malignant neoplasm of right kidney, except renal pelvis (principal); E03.9 Hypothyroidism, unspecified
CPT/HCPCS: 36415; 80053; 84443; 85025

== ENCOUNTER 2020-05-08 06:08 | Outpatient (CLI) | payer OTHER, SELFPAY ==
--- NOTE | 2020-05-08 11:03 | ONC FU_ITS ---
Dr. Bai Patient Follow-Up Note Patient: Jovita Beyer Unit #: [id number]: [id number] Dicatated By: Esa Bai M.D.Date of Visit:May 08, 2020 Onc Med Follow-up/Prog Note Chief Complaint: Renal cell carcinoma. History of Present Illness: This is a 60 year-old woman with grade 2 papillary renal cell carcinoma, stage III (pT3a, pN1, M0). She has been in good general health. She had presented in June with chills and right upper quadrant abdominal pain. An abdominal ultrasound on 07/19/2019 showed a large right renal mass measuring 9.0 x 6.5 x 8.0 cm, consistent with renal cell neoplasm. A subsequent CT abdomen/pelvis confirmed an enhancing right upper pole renal mass measuring 7.1 x 6.1 x 10.2 cm. The renal veins appeared patent. Enlarged adjacent aortocaval lymph nodes measured 15 and 12 mm. Multiple low-attenuation lesions in the liver were felt to be most consistent with small hepatic cysts. The largest measured 10 mm. Lobulated enhancing uterus had suspected fibroid measuring 2.5 x 2.4 cm. She was referred to Dr. Cortney Sepulveda, at [facility]. She had further evaluation with MRI of the abdomen on 07/31/2019. It showed a large cystic and solid mass in the superior pole of the right kidney measuring 7.6 x 9.5 x 8.0 cm, highly suspicious for primary renal neoplasm. It was noted to abut the adjacent hepatic parenchyma, direct invasion not excluded. It was also noted to abut the infrahepatic IVC with mild narrowing. The right adrenal gland was not visualized due to probable direct invasion. There was no evidence for renal vein tumoral thrombus. An enlarged right pericaval lymph node measuring 1.1 x 1.9 cm was concerning for mili metastasis. There were multiple hepatic cysts and solitary cavernous hemangioma noted within the right lobe of the liver, but without evidence for definite hepatic metastasis. Restaging chest CT on 08/22/2019 showed multiple indeterminate bilateral pulmonary nodules measuring up to 2 mm. Multiple hyper and hypoattenuating lesions in the liver were felt to be concerning for hepatic metastases and upper abdominal lymphadenopathy and left upper quadrant mesenteric soft tissue nodules were also concerning for metastases. There were multiple heterogenous thyroid lobe nodules, most suspicious in the inferior left thyroid lobe measuring approximately 12 mm. On 08/23/2019 she underwent right robotic assisted laparoscopic radical nephrectomy with right pericaval lymph node dissection and wedge liver biopsy. Pathology showed grade 2 papillary renal cell carcinoma, type 2, measuring 7.5 x 6.8 x 5.5 cm. Tumor was noted to extend into the renal sinus, and there was evidence for vascular invasion. The margins were uninvolved. There was involvement in 1 of 5 hilar lymph nodes. The liver biopsy showed benign liver with hemorrhage and no evidence of malignancy. She had an uneventful postoperative course. I had seen her initially on 10/09/2019 in regard to possible adjuvant therapy. With non-clear cell histology, there was no approved treatment to offer her. Following the visit, we began a fairly exhaustive search for active clinical trials, and we found none. In the meantime, it also reached out to pharmaceutical companies, as she was strongly motivated to have some form of adjuvant therapy. She subsequently was approved for off label use of Keytruda, and she was given the option to have a year of adjuvant therapy at a standard dose of 200 mg by IV infusion every 3 weeks. She has a previous history of hypertension. She has had no other ongoing medical illnesses. She also has a history of smoking for 15 years, up to 1/2 pack of cigarettes daily. She quit smoking in July 2019. INTERIM HISTORY: She began cycle 1 of pembrolizumab on 01/03/2020. She tolerated it without acute toxicity. She continued with cycle 2 then continued treatment at 3-week intervals. As of 03/27/2020 her treatment was changed to the 6-week dosing schedule. Her surveillance CT scans on 04/28/2020 showed no evidence of recurrence in the nephrectomy bed and no adenopathy or other evidence of disease progression in the chest, abdomen, or pelvis. A tiny sidebranch pancreatic IPMN appeared stable. She is seen for a scheduled visit. She has been feeling good generally. She has not experienced any adverse effects with the pembrolizumab. She has just mild fatigue. Her activity is normal. Appetite is good. She has no fever, night sweats, or hot flashes. She has not had sore mouth or throat. She has no shortness of breath, cough, or chest pain. She has no GI or complaints. She has a little arthritis pain in the left shoulder and thumbs, but that is no worse. She does not complain of headache or dizziness, and she has no focal neurologic symptoms. Medications: Cholecalciferol 1 Capsule (of 250 mcg ) Oral daily, Glucosamine HCl 1 Capsule (of 1000 mg) Tablet Oral b.i.d., Senna 1 Capsule (of 8.6 mg) Oral daily, Vitamin C 1 Capsule (of 1000 mg) Oral daily Allergies: No Known Allergies. Vital Signs: Performed on May 08, 2020 10:35 Height - 68.00 in Weight - 126.2 lbs (LOW) BSA - 1.68 sq.m BMI - 19.19 Temperature - 97.5 F (LOW) Pulse - 83 /min Respiration - 16 /min BP - 122/77 mm(hg) O2 Sat - 98 % Pain - 0 Physical Examination: Constitutional - She looks good generally, Eyes - Sclerae nonicteric. Conjunctivae clear, ENMT - No lesions noted in the oral cavity, Hematologic/Lymphatic - No cervical, clavicular, or axillary adenopathy, Respiratory - Lungs are clear with good air movement bilaterally, Cardiovascular - Heart rhythm is regular. There is no murmur, gallop, or rub noted, Abdomen - Soft. Liver and spleen are not enlarged. There is no abdominal mass or ascites noted and there is no inguinal adenopathy, Extremities - No edema, Neurologic - No focal neurologic deficits noted. Lab/Imaging: CBC shows hemoglobin 13.6 g, white blood cell count 5800, and platelet count 276,000. Comprehensive metabolic profile shows stable renal function with BUN 17 and creatinine 1.3 mg/dL. Bilirubin and liver enzymes are normal. Problem List: 1. Grade 2 papillary renal cell carcinoma, type 2, stage III (pT3a, pN1, M0). 2. She underwent right robotic assisted, laparoscopic radical nephrectomy with right paracaval lymph node dissection and wedge liver biopsy on 08/23/2019. 3. She has a history of hypertension, not requiring medication. Problems Addressed with this Encounter and Plan: 1. Grade 2 papillary renal cell carcinoma, type 2, stage III (pT3a, pN1, M0). She underwent right robotic assisted, laparoscopic radical nephrectomy with right paracaval lymph node dissection and wedge liver biopsy on 08/23/2019. In the setting of a T3a primary tumor and with lymph node involvement, she was felt to be at high risk for recurrence. Unfortunately we were not able to find a clinical trial for which she was eligible. She was extremely motivated to have some form of adjuvant therapy, and ultimately we were able to get pembrolizumab available for her on a compassionate use basis. She began cycle 1 of adjuvant therapy with pembrolizumab on 01/03/2020. She tolerated it without acute toxicity, and she then continued treatment at 3-week intervals. During subsequent follow-up she has continued to tolerate it with no adverse effects. As of 03/27/2020 her treatment was changed to the 6-week dosing interval. Overall, she is doing well clinically, thus far with no evidence of recurrence of the renal cell cancer. She continues pembrolizumab 400 mg by IV infusion every 6 weeks. She will be scheduled for a follow-up visit in 12 weeks. Signed By: Esa Bai M.D. <<Signature on File>>
== END 2020-05-08 06:09 | disposition home or self-care (01) ==
LOC: ONCMED 06:09
PROVIDERS: PCP Family Medicine; Visit Provider Internal Medicine Medical Oncology
DX: Z51.12 Encounter for antineoplastic immunotherapy (principal); C64.1 Malignant neoplasm of right kidney, except renal pelvis; I10 Essential (primary) hypertension
CPT/HCPCS: 96413; 99214; J7050; J9271

== ENCOUNTER 2020-05-23 13:25 | Emergency (ER) | payer OTHER, SELFPAY ==
[2020-05-23] VITALS (7 sets, daily range): BP systolic 97–148; BP diastolic 71–86; PULSE 67–90; RESP 14–18; TEMP 36.8; O2SAT 99–100; BMI 20.2
--- NOTE | 2020-05-23 15:02 | ED_ITS ---
HPI - Abdominal Pain General: Chief Complaint: Abdominal Pain Stated Complaint: RUQ ABD PAIN Time Seen by Provider: 05/23/20 14:29 History of Present Illness: HPI narrative: 60 yo female presents with complaint of right upper quadrant abdominal pain that began several days ago. She has diarrhea denies nausea or vomiting. At times having cold sweats. Denies chest pain or shortness of breath. She states she has been evaluated previously and told she has sludge in her gallbladder MD elicited complaint: abdominal pain Onset (ago): hour(s) Pain Consistency: intermittent Location: Epigastric and RUQ Severity: mild Quality: cramping and stabbing Radiation: back Migration to: no migration Exacerbating factors: eating Relieving factors: nothing Associated Symptoms: Reports anorexia, bloating and GI cramping; Denies belching, change in bowel habits, change in stool character, chills, coffee ground emesis, constipation, diarrhea, dyspepsia, dysuria, excessive flatus, fever(s), heartburn, hematochezia, hematuria, hematemesis, fecal incontinence, loose stools, melena, nausea, poor appetite, syncope and vomiting Review of Systems Const: Denies: fever(s) or chills ENMT: Denies: throat pain, ear or mastoid pain, nasal discharge or nasal congestion Card: Denies: syncope Resp: Denies: dyspnea, productive cough or non-productive cough GI: Reports: bloating and GI cramping; Denies: vomiting, hematemesis, coffee ground emesis, heartburn, diarrhea, constipation, belching, excessive flatus, fecal incontinence, change in bowel habits, change in stool character, hematochezia or melena : Denies: dysuria or hematuria Skin/Breast: Denies: rash or pruritus PFSH ED PFSH: Medical History Cancer of kidney (08/23/19) Grade 2, stage III cancer (pT3a, 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 Following with [facility]/Onc. Surgical History S/p nephrectomy (08/23/19) Right kidney. Due to kidney mass. Performed at [place], [place]. Family History Grandfather Stroke Social History Smoking and tobacco status: former smoker Quit status (tobacco): has quit using tobacco Year quit tobacco: 07/2019 Alcohol intake: current Alcohol intake frequency: holidays/special occasions only Physical Exam Const: COMMON NORMALS: no acute distress GENERAL APPEARANCE: cooperative and comfortable ORIENTATION/CONSCIOUSNESS: Yes awake, Yes oriented to person, Yes oriented to place and Yes oriented to time HENMT: COMMON NORMALS: normocephalic, atraumatic and hearing grossly normal bilaterally HEAD & SCALP: normocephalic and atraumatic Neck/C-Spine: COMMON NORMALS: no JVD Resp: COMMON NORMALS: normal respiratory effort, No retractions, No use of accessory muscles and clear to auscultation bilaterally AUSCULTATION: clear to auscultation bilaterally Cardio: COMMON NORMALS: no JVD, regular rate, regular rhythm and No murmurs present (Cardio) RATE: regular rate RHYTHM: regular rhythm GI: PALPATION: Yes Tenderness to palpation present (GI) (epigastric) Details: RUQ Extremity: COMMON NORMALS: normal to inspection, capillary refill normal, no clubbing, cyanosis or edema, no calf tenderness and no pedal edema Neuro: SENSORIUM/ORIENTATION: Yes oriented to person, Yes oriented to place and Yes oriented to time Skin: COMMON NORMALS: no rashes or lesions noted GENERAL SKIN EXAM: no rashes or lesions noted Course Vital Signs: Vital signs: Vital Signs Temperature 98.3 F 05/23/20 13:33 Pulse Rate 67 05/23/20 18:05 Respiratory Rate 14 05/23/20 18:05 Blood Pressure 97/79 05/23/20 18:05 Pulse Oximetry 99 05/23/20 18:05 MDM - Abdominal Pain MDM Narrative: Medical decision making narrative: Patient is improved somewhat. Liver functions and imaging are all normal will discharge home follow-up with surgery will give hydrocodone Zofran to use as needed clear liquid diet for 24 to 48 hours then bland diet after that follow-up primary care surgery for possible further testing including potential HIDA scan. Lab Data: Labs: Lab Results 05/23/20 05/23/20 Range/Units 15:00 15:00 WBC 10.2 H (4.0-10.0) 10^3/ uL RBC 4.16 (4.1-5.3) 10^6/u L Hgb 13.5 (11.5-15.3) g/dL Hct 39.6 (37.0-47.0) % MCV 95.2 (81-99) fL MCH 32.5 (28.0-34.0) pg MCHC 34.1 (30.0-36.0) g/dL RDW 12.5 (12.1-15.1) % Plt Count 265 (130-400) 10^3/c mm MPV 9.4 (7.4-10.4) fL Neut % (Auto) 37.6 % Lymph % (Auto) 18.7 % [place] % (Auto) 3.9 % Eos % (Auto) 38.8 % Baso % (Auto) 0.8 % Neut # (Auto) 3.86 (1.8-7.7) 10^3/u L Lymph # (Auto) 1.9 (0.8-4.8) 10^3/u L [place] # (Auto) 0.4 (0.2-0.9) 10^3/u L Eos # (Auto) 4.0 H (0.0-0.8) 10^3/u L Baso # (Auto) 0.1 (0.0-0.1) 10^3/u L Nucleated RBC % (a uto) 0 % Nucleated RBCs # 0.0 /100WBC Sodium 138 (136-145) mmol/L Potassium 3.6 (3.5-5.1) mmol/L Chloride 105 (98-107) mmol/L Carbon Dioxide 23 (22-29) mmol/L Anion Gap 13.6 (5-19) BUN 19 (8-23) mg/dL Creatinine 1.3 H (0.5-0.9) mg/dL GFR Calculation 41.5 L (90-130) mL/min Glucose 80 (65-115) mg/dL Calculated Osmolal ity 287 (285-295) mOsm/k g Calcium 9.7 (8.5-10.5) mg/dL Total Bilirubin 0.8 (0.15-1.2) mg/dL AST 11 (0-32) U/L ALT 10 (0-33) U/L Alkaline Phosphata se 114 H (35-105) IU/L Total Protein 7.4 (6.6-8.7) g/dL Albumin 4.6 (3.5-5.2) g/dL Globulin 2.8 (1.3-4.6) g/dL Lipase 60 (13-60) U/L Discharge Plan Discharge Patient Disposition: Home Clinical Impression: Biliary colic Condition: Stable Prescriptions: New hydrocodone-acetaminophen 5-325 mg tablet 1 tab PO Q6H PRN (Reason: pain) Qty: 20 RF: 0 Zofran 4 mg tablet 4 mg PO Q6H PRN (Reason: nausea and vomiting) Qty: 15 RF: 0 No Action glucosamine sulfate 1,000 mg capsule See Rx Instructions PO BID RF: 0 Keytruda 25 mg/mL solution See Rx Instructions IVP .COMPLEX RF: 0 ascorbic acid (vitamin C) 1,000 mg tablet 500 mg PO DAILY@0900 RF: 0 sennosides [Natural Senna Laxative] 8.6 mg tablet 8.6 mg PO BEDTIME@2200 RF: 0 acetaminophen 500 mg Tablet 500 mg PO Q6H PRN (Reason: Pain) RF: 0 Vitamin D3 25 mcg (1,000 unit) Tablet 25 mcg PO DAILY@0900 RF: 0 Discharge Orders: Discharge ED (Routine); Ordered 05/23/20 Ordered By: Juice Mathew Referrals: Alon Garzon MD [Primary Care Provider] - Patient Instructions: Abdominal Pain (ED), Opioid Safety Coding Level of Care Code ED Boil Off Worker for Leanne Kaplan
--- NOTE | 2020-05-23 15:04 | US_ITS ---
WS: [id number] ULTRASOUND ABDOMEN LIMITED CLINICAL INFORMATION: RUQ abd pain COMPARISON: None. FINDINGS: Liver Size: Enlarged Craniocaudal length: 17.1 cm. Echogenicity: Diffuse fatty infiltration. Surface nodularity: None. Mass (size and location): Several hepatic cysts and hepatic hemangiomas Hepatopedal flow in the main portal vein. Bile ducts Intrahepatic ducts: Normal. Common bile duct diameter: 0.3 cm. Gallbladder Normal. Gallstones: None. Gallbladder sludge: None. Gallbladder wall thickening: None. Pericholecystic fluid: None. Sonographic Dumont sign: Absent. Pancreas Not well visualized due to bowel gas History of right nephrectomy. Ascites: None. US/US gall bladder [id number] IMPRESSION: 1. Mild hepatomegaly. Several hepatic cysts and hemangiomas similar to the sundar or CT April 28, 2020. 2. Normal gallbladder. 3. Prior right nephrectomy. 4. Normal common bile duct. 5. No ascites.
[2020-05-23] MEDS: sodium chloride 0.9% 1,000 ML 999 ML IV (15:18)
[2020-05-23] MEDS: ondansetron 2 mg/ML SDV 2 mL 4 MG IVP (15:20)
[2020-05-23] MEDS: morphine 4 mg/mL SDV 1 mL IVP (15:20)
[2020-05-23 15:21] LABS: Basophils # 0.1 10^3/uL (0.0-0.1); Basophils % 0.8 %; Eosinophils % 38.8 %; Hematocrit 39.6 % (37.0-47.0); Hemoglobin 13.5 g/dL (11.5-15.3); Lymphocytes # 1.9 10^3/uL (0.8-4.8); Lymphocytes % 18.7 %; Mean Corpuscular HGB Conc 34.1 g/dL (30.0-36.0); Mean Corpuscular Hemoglobin 32.5 pg (28.0-34.0); Mean Corpuscular Volume 95.2 fL (81-99); Mean Platelet Volume 9.4 fL (7.4-10.4); Monocytes # 0.4 10^3/uL (0.2-0.9); Monocytes % 3.9 %; Neutrophils # 3.86 10^3/uL (1.8-7.7); Neutrophils % 37.6 %; Nucleated Red Blood Cells % 0 %; Platelet Count 265 10^3/cmm (130-400); Red Blood Count 4.16 10^6/uL (4.1-5.3); Red Cell Distribution Width 12.5 % (12.1-15.1); White Blood Count 10.2 10^3/uL (4.0-10.0)
[2020-05-23 15:37] LABS: Alanine Aminotransferase 10 U/L (0-33); Albumin Level 4.6 g/dL (3.5-5.2); Alkaline Phosphatase 114 IU/L (35-105); Anion Gap 13.6 (5-19); Aspartate Amino Transferase 11 U/L (0-32); Blood Urea Nitrogen 19 mg/dL (8-23); Calcium 9.7 mg/dL (8.5-10.5); Carbon Dioxide 23 mmol/L (22-29); Chloride 105 mmol/L (98-107); Globulin 2.8 g/dL (1.3-4.6); Glomerular Filtration Rate 41.5 mL/min (90-130); Glucose 80 mg/dL (65-115); Lipase 60 U/L (13-60); Osmolality Calculated 287 mOsm/kg (285-295); Potassium 3.6 mmol/L (3.5-5.1); Sodium 138 mmol/L (136-145); Total Bilirubin 0.8 mg/dL (0.15-1.2); Total Protein 7.4 g/dL (6.6-8.7)
--- NOTE | 2020-05-23 15:40 | CTR_ITS ---
PROCEDURE INFORMATION: Exam: CT Abdomen And Pelvis With Contrast Exam date and time: 05/23/2020 4:35 PM Age: 60 years old Clinical indication: Abdominal pain; Localized; Right upper quadrant (ruq); Prior surgery; Surgery date: 6+ months; Surgery type: R neph, adrenal; Patient HX: C/O ruq abd pain w diarrhea TECHNIQUE: Imaging protocol: Computed tomography of the abdomen and pelvis with contrast. Sagittal and coronal reformatted images were created and reviewed. Radiation optimization: All CT scans at this facility use at least one of these dose optimization techniques: automated exposure control; mA and/or kV adjustment per patient size (includes targeted exams where dose is matched to clinical indication); or iterative reconstruction. Contrast material: VISI 320; Contrast volume: 75 ml; Contrast route: INTRAVENOUS (IV); COMPARISON: CT chest abd pel w con* 04/28/2020 9:28 AM RADIATION DOSE METRICS: Total DLP (mGy-cm): 309.44 FINDINGS: Lungs: Dependent atelectasis in the visualized lungs. Pleural spaces: No pleural effusion. Heart: Visualized cardiac chambers are unremarkable. Liver: Two hepatic lesions with imaging characteristics consistent with multiple hemangiomas. The larger measures 1.2 cm (series 2, image 8). Multiple hepatic cysts, the largest measures 1.1 cm (series 2, image 20). Multiple hypodense foci in the liver that cannot be further characterized on the current examination. The largest measures 8.1 mm (series 2, image 39). Findings in the liver are stable dating back to 07/19/2019. Gallbladder and bile ducts: The gallbladder is unremarkable. No biliary ductal dilatation. Pancreas: The pancreas is unremarkable. No pancreatic ductal dilatation. Spleen: The spleen is unremarkable. Adrenal glands: Postsurgical changes consistent with right adrenalectomy are stable compared with 04/28/2020. The left adrenal gland is unremarkable. Kidneys and ureters: Postsurgical changes consistent with right nephrectomy are stable compared with 04/28/2020. The left kidney is unremarkable. Stomach and bowel: Scattered diverticula in the sigmoid colon. No evidence for diverticulitis. Fluid within the small bowel without evidence of bowel wall thickening. No acute abnormality in the stomach. Appendix: Appendix not definitely visualized. No inflammatory changes in the pericecal region however. Intraperitoneal space: No free intraperitoneal air. No ascites. No loculated fluid collections to suggest an abscess. Vasculature: Dilated, tortuous veins in the right and left adnexa, measuring up to 8.2 mm on the right and 7.9 mm on the left. on the left. Findings are suggestive of pelvic congestion syndrome. Stable moderate atherosclerotic calcifications in the visualized arteries. No evidence for aortic aneurysm or aortic dissection. Hepatic veins, portal veins, splenic vein, and SMV are patent. Lymph nodes: No lymphadenopathy. Urinary bladder: Unremarkable as visualized. Reproductive: TheThe uterus, right ovary, and left ovary are unremarkable. Bones/joints: Multiple small bone islands in the proximal femurs and pelvis. Multilevel degenerative changes of varying severity in the visualized spine. Multilevel foraminal stenosis of varying severity in the lumbar spine. Soft tissues: Unremarkable. CT/CT abdomen pelvis w con* [id number] IMPRESSION: 1. Fluid within the small bowel without evidence of bowel wall thickening. This may reflect viral gastroenteritis in the appropriate clinical situation. 2. Multiple hypodense foci in the liver that cannot be further characterized on the current examination. Findings are stable dating back to 07/19/2019. Recommend continued attention to these areas on future imaging studies to rule out possible metastatic foci. 3. Findings suggestive of pelvic congestion syndrome. Recommend clinical correlation. 4. Scattered diverticula in the sigmoid colon. No evidence for diverticulitis. 5. Incidental/nonacute findings are listed in the report. Radiation Dose CTDIVOL = (mGy): DLP = 309.44 (mGy-cm)
[2020-05-23] MEDS: iodixanol 320 mg/mL 100mL Btl IV (16:54)
== END 2020-05-23 18:07 | disposition home or self-care (01) ==
PROVIDERS: Nurse Practitioner Family; Emergency Provider Family Medicine; PCP Family Medicine
DX: K80.50 Calculus of bile duct without cholangitis or cholecystitis without obstruction (principal); Z85.528 Personal history of other malignant neoplasm of kidney; Z90.5 Acquired absence of kidney; Z87.891 Personal history of nicotine dependence
CPT/HCPCS: 74177; 76705; 80053; 83690; 85025; 96361; 96374; 96375; 99284; J2270; J2405; J7030; Q9967

== ENCOUNTER 2020-05-27 16:49 | Emergency (ER) | payer OTHER, SELFPAY ==
[2020-05-27] VITALS (9 sets, daily range): BP systolic 70–129; BP diastolic 40–86; PULSE 57–98; RESP 12–18; TEMP 36.6; O2SAT 98–100; BMI 20.5
--- NOTE | 2020-05-27 17:04 | CTR_ITS ---
PROCEDURE INFORMATION: Exam: CT Abdomen And Pelvis With Contrast Exam date and time: 05/27/2020 5:42 PM Age: 60 years old Clinical indication: Abdominal pain; Generalized; Prior surgery; Surgery type: RT kidney, adrenal gland; Additional info: Epigastric pain TECHNIQUE: Imaging protocol: Computed tomography of the abdomen and pelvis with contrast. Radiation optimization: All CT scans at this facility use at least one of these dose optimization techniques: automated exposure control; mA and/or kV adjustment per patient size (includes targeted exams where dose is matched to clinical indication); or iterative reconstruction. Contrast material: VISI 320; Contrast volume: 95 ml; Contrast route: INTRAVENOUS (IV); COMPARISON: 1. CT abdomen pelvis w con* [id number] 05/23/2020 5:[address] abdomen pelvis w con* [id number] 07/19/2019 11:57:[address] chest abd pel w con* 04/28/2020 9:28:21 AM RADIATION DOSE METRICS: Total DLP (mGy-cm): 878.9 FINDINGS: Liver: The multiple simple benign hepatic cysts and benign hemangiomas within the liver are entirely unchanged compared with the previous examination of 05/23/2020. No new abnormality is seen within the liver. There is focal area of hypodensity adjacent to the falciform ligament consistent with focal fatty change not changed from previous. There is a diffuse decrease in hepatic parenchymal density, consistent with mild fatty infiltration. Gallbladder and bile ducts: Normal. No calcified stones. No ductal dilation. Pancreas: The pancreas is normal. Spleen: The spleen is normal. Adrenal glands: Right adrenal has been removed. The left adrenal gland is normal. Kidneys and ureters: There has been a right nephrectomy. The left kidney is normal. There is no evidence of hydronephrosis. There is no evidence of renal or ureteral calcifications. Stomach and bowel: Stomach is moderately dilated with food and fluid. Mildly dilated and thickened small bowel loops are seen throughout the abdomen without obstruction suggesting possible enteritis. Fluid is seen throughout the colon without distention or obstruction. Appendix: A normal appendix is identified. Intraperitoneal space: Unremarkable. No free air. No significant fluid collection. Vasculature: The aorta demonstrates moderate atherosclerotic calcification. There is no evidence of an abdominal aortic aneurysm. Lymph nodes: There is no evidence of lymphadenopathy. Urinary bladder: Unremarkable as visualized. Reproductive: Increased pelvic vascularity around the uterus is again identified with prominent right gonadal vein. Findings could represent pelvic congestion. Correlation with clinical findings is suggested. Bones/joints: There is some degenerative change at the L5-S1 level. Soft tissues: Unremarkable. CT/CT abdomen pelvis w con* [id number] IMPRESSION: 1. Nonspecific gastroenteritis. 2. No evidence of intestinal obstruction. 3. Other incidental findings not changed from prior studies. Radiation Dose CTDIVOL = (mGy): DLP = 878.9 (mGy-cm)
[2020-05-27] MEDS: lidocaine 2% viscous 15 ML, aluminum-mag hydrox-simethicon 30 ML, sucralfate oral liq 1 GM PO (17:40)
[2020-05-27] MEDS: morphine 4 mg/mL SDV 1 mL IVP (17:40)
[2020-05-27] MEDS: ondansetron 2 mg/ML SDV 2 mL 4 MG IVP (17:40)
[2020-05-27] MEDS: iodixanol 320 mg/mL 100mL Btl IV (17:59)
[2020-05-27 18:05] LABS: Basophils # 0.1 10^3/uL (0.0-0.1); Basophils % 0.7 %; Eosinophils # 2.6 10^3/uL (0.0-0.8); Eosinophils % 30.9 %; Hematocrit 37.4 % (37.0-47.0); Hemoglobin 12.7 g/dL (11.5-15.3); Lymphocytes # 1.7 10^3/uL (0.8-4.8); Lymphocytes % 20.1 %; Mean Corpuscular Hemoglobin 32.2 pg (28.0-34.0); Mean Corpuscular Volume 94.7 fL (81-99); Monocytes # 0.3 10^3/uL (0.2-0.9); Monocytes % 3.4 %; Neutrophils % 44.8 %; Nucleated Red Blood Cells % 0 %; Platelet Count 273 10^3/cmm (130-400); Red Blood Count 3.95 10^6/uL (4.1-5.3); Red Cell Distribution Width 12.4 % (12.1-15.1); White Blood Count 8.3 10^3/uL (4.0-10.0)
[2020-05-27] MEDS: sodium chloride 0.9% 1,000 ML 999 ML IV (18:12)
[2020-05-27 18:18] LABS: Alanine Aminotransferase 10 U/L (0-33); Albumin Level 4.5 g/dL (3.5-5.2); Alkaline Phosphatase 102 IU/L (35-105); Aspartate Amino Transferase 12 U/L (0-32); Blood Urea Nitrogen 19 mg/dL (8-23); C Reactive Protein 2.8 mg/L (0.0-4.9); Calcium 9.6 mg/dL (8.5-10.5); Carbon Dioxide 23 mmol/L (22-29); Chloride 101 mmol/L (98-107); Globulin 2.2 g/dL (1.3-4.6); Glomerular Filtration Rate 38.1 mL/min (90-130); Glucose 131 mg/dL (65-115); Lipase 70 U/L (13-60); Osmolality Calculated 288 mOsm/kg (285-295); Sodium 137 mmol/L (136-145); Total Bilirubin 0.6 mg/dL (0.15-1.2); Total Protein 6.7 g/dL (6.6-8.7)
[2020-05-27 18:19] LABS: Lactate (Lactic Acid level) 2.2 mmol/L (0.5-2.2)
[2020-05-27 18:35] LABS: Anion Gap 16.9 (5-19); Potassium 3.9 mmol/L (3.5-5.1)
--- NOTE | 2020-05-27 18:48 | ED_ITS ---
HPI - Abdominal Pain General: Chief Complaint: Abdominal Pain Stated Complaint: STOMACH PAINS WORSE THAN LAST VISIT/CANCER PATIENT Time Seen by Provider: 05/27/20 17:04 Source: patient and family () Mode of arrival: ambulatory Limitations: no limitations History of Present Illness: HPI narrative: Patient was seen here 4 days ago for the same thing was diagnosed with biliary colic and discharged home. Patient states that the pain returned again early this morning and has been more severe than it was. The pain medication that she was discharged home with did not help her pain according to her. She has associated nausea but no vomiting. She denies alcohol intake, denies NSAID use. She drinks 1 to 2 cups of coffee daily. She has no history of stomach ulcers or pancreatitis. MD elicited complaint: abdominal pain Onset (ago): hour(s) (12) Pain Consistency: constant Location: Epigastric Severity: severe Quality: stabbing Radiation: none Migration to: no migration Exacerbating factors: nothing Relieving factors: nothing Associated Symptoms: Reports nausea; Denies anorexia, belching, bloating, change in bowel habits, change in stool character, chills, coffee ground emesis, constipation, GI cramping, diarrhea, dyspepsia, dysuria, excessive flatus, fever(s), hematochezia, hematuria, hematemesis, fecal incontinence, loose stools, melena, poor appetite, syncope and vomiting Review of Systems General: Reports: 10 or more systems reviewed and unremarkable except in HPI and below Const: Denies: fever(s) or chills Eyes: Denies: change in vision or blurry vision ENMT: Denies: throat pain, enlarged tonsils, odynophagia, hoarseness, mouth pain or swelling of lips/tongue Card: Denies: syncope Resp: Denies: dyspnea, productive cough or non-productive cough GI: Reports: nausea; Denies: vomiting, hematemesis, coffee ground emesis, diarrhea, constipation, bloating, GI cramping, belching, excessive flatus, fecal incontinence, change in bowel habits, change in stool character, hematochezia or melena : Denies: dysuria or hematuria Musc: Denies: neck pain, back pain or extremity swelling Skin/Breast: Denies: rash, pruritus or erythema Neuro: Denies: headache(s), numbness in extremities or weakness in extremities Endo: Denies: polyuria, polydipsia or tired all the time PFSH ED PFSH: Medical History Cancer of kidney (08/23/19) Grade 2, stage III cancer (pT3a, 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 Following with Dr. Bai, [facility]/Onc. Surgical History S/p nephrectomy (08/23/19) Right kidney. Due to kidney mass. Performed at [place], [place]. Family History Grandfather Stroke Social History Smoking and tobacco status: former smoker Quit status (tobacco): has quit using tobacco Year quit tobacco: 07/2019 Alcohol intake: current Alcohol intake frequency: holidays/special occasions only Physical Exam Const: COMMON NORMALS: average body habitus, patient oriented x3, no limitations, healthy appearing, alert and well nourished GENERAL APPEARANCE: in distress (Painful distress, she is doubled over in the bed.) HENMT: COMMON NORMALS: normocephalic, atraumatic and moist oral mucous membranes HEAD & SCALP: normocephalic and atraumatic Neck/C-Spine: COMMON NORMALS: no meningeal signs and no JVD Chest: COMMONS NORMALS: normal inspection of the chest and normal palpation of entire chest wall Resp: COMMON NORMALS: normal respiratory effort, No retractions, No use of accessory muscles, clear to auscultation bilaterally and percussion normal AUSCULTATION: clear to auscultation bilaterally PERCUSSION: percussion normal Cardio: COMMON NORMALS: no JVD, regular rate, regular rhythm, S1 normal heart sound present, S2 normal heart sound present, No gallops present (Cardio), No clicks present (Cardio), No murmurs present (Cardio), No rub (Cardio) and Peripheral pulses 2+ throughout RATE: regular rate RHYTHM: regular rhythm HEART SOUNDS: S1 normal heart sound present and S2 normal heart sound present PERIPHERAL PULSES: Peripheral pulses 2+ throughout GI: COMMON NORMALS: Normal to inspection, nondistended, normoactive bowel sounds present, Soft to palpation, No hepatosplenomegaly present, no masses and no bruits PALPATION: Yes Soft to palpation, Yes Tenderness to palpation present (GI) (Epigastric), No Guarding due to palpation present (GI), No Rigid due to palpation and Yes No hepatosplenomegaly present Extremity: COMMON NORMALS: normal to inspection, full ROM, capillary refill normal, no calf tenderness and no pedal edema Neuro: COMMON NORMALS: patient oriented x3 SENSORIUM/ORIENTATION: Yes alert MENINGEAL SIGNS: Yes no meningeal signs Skin: COMMON NORMALS: no rashes or lesions noted, no wounds, turgor normal, no jaundice, no petechiae and no mottling GENERAL SKIN EXAM: no rashes or lesions noted and turgor normal Course Reevaluation(s): Reevaluation #1: Discussed her lab and imaging findings with her. Explained that she has a mild case of acute pancreatitis but no CT scan findings concerning for complications. Lab values are low enough that she can be discharged home. Pain has resolved. We will discharge her home, she already has pain medications. I advised that she can increase that to 2 tablets every 8 hours as needed for pain. She voiced understanding and is in agreement with the plan. Time: 18:48 Vital Signs: Vital signs: Vital Signs Temperature 97.9 F 05/27/20 16:53 Pulse Rate 57 L 05/27/20 21:48 Respiratory Rate 16 05/27/20 21:48 Blood Pressure 109/64 05/27/20 21:48 Pulse Oximetry 100 05/27/20 21:48 MDM - Abdominal Pain MDM Narrative: Medical decision making narrative: 60-year-old female patient who presents to the emergency department with abdominal pain. She had similar symptoms about 4 days ago and was evaluated in the emergency department. Today her lipase is only mildly elevated, other labs unremarkable and CT scan findings with no significant change. She will be managed as a case of mild pancreatitis with oral pain medication. She already has a prescription for hydrocodone and she is asked to continue that and may double the dose if her pain is not well controlled. No signs of complication from pancreatitis. There are indication for hospital admission. Medical Records: Attestation: I reviewed the patient's medical records. Lab Data: Attestation: I reviewed the patient's lab results. Labs: Lab Results 05/27/20 05/27/20 05/27/20 Range/Units 17:51 17:51 17:51 WBC 8.3 (4.0-10.0) 10^3/ uL RBC 3.95 L (4.1-5.3) 10^6/u L Hgb 12.7 (11.5-15.3) g/dL Hct 37.4 (37.0-47.0) % MCV 94.7 (81-99) fL MCH 32.2 (28.0-34.0) pg MCHC 34.0 (30.0-36.0) g/dL RDW 12.4 (12.1-15.1) % Plt Count 273 (130-400) 10^3/c mm MPV 10.0 (7.4-10.4) fL Neut % (Auto) 44.8 % Lymph % (Auto) 20.1 % [place] % (Auto) 3.4 % Eos % (Auto) 30.9 % Baso % (Auto) 0.7 % Neut # (Auto) 3.70 (1.8-7.7) 10^3/u L Lymph # (Auto) 1.7 (0.8-4.8) 10^3/u L [place] # (Auto) 0.3 (0.2-0.9) 10^3/u L Eos # (Auto) 2.6 H (0.0-0.8) 10^3/u L Baso # (Auto) 0.1 (0.0-0.1) 10^3/u L Nucleated RBC % (a uto) 0 % Nucleated RBCs # 0.0 /100WBC Sodium 137 (136-145) mmol/L Potassium 3.9 (3.5-5.1) mmol/L Chloride 101 (98-107) mmol/L Carbon Dioxide 23 (22-29) mmol/L Anion Gap 16.9 (5-19) BUN 19 (8-23) mg/dL Creatinine 1.4 H (0.5-0.9) mg/dL GFR Calculation 38.1 L (90-130) mL/min Glucose 131 H (65-115) mg/dL Calculated Osmolal ity 288 (285-295) mOsm/k g Lactate 2.2 (0.5-2.2) mmol/L Calcium 9.6 (8.5-10.5) mg/dL Total Bilirubin 0.6 (0.15-1.2) mg/dL AST 12 (0-32) U/L ALT 10 (0-33) U/L Alkaline Phosphata se 102 (35-105) IU/L C-Reactive Protein 2.8 (0.0-4.9) mg/L Total Protein 6.7 (6.6-8.7) g/dL Albumin 4.5 (3.5-5.2) g/dL Globulin 2.2 (1.3-4.6) g/dL Lipase 70 H (13-60) U/L Urine Color (Yellow) Urine Appearance (CLEAR) Urine pH (5-7) Ur Specific Gravit y (1.005-1.030) Urine Protein (Negative) Urine Glucose (UA) (Normal) Urine Ketones (Negative) Urine Blood (Negative) Urine Nitrate (Negative) Urine Bilirubin (Negative) Urine Urobilinogen (Negative) mg/dL Ur Leukocyte Lori ase (Negative) Urine RBC (0-2) /hpf Urine WBC (0-5) /hpf Ur Squamous Epith Cells (0-5) /hpf Amorphous Sediment Urine Bacteria (NONE) /hpf Hyaline Casts /lpf 05/27/20 Range/Units 18:10 WBC (4.0-10.0) 10^3/ uL RBC (4.1-5.3) 10^6/u L Hgb (11.5-15.3) g/dL Hct (37.0-47.0) % MCV (81-99) fL MCH (28.0-34.0) pg MCHC (30.0-36.0) g/dL RDW (12.1-15.1) % Plt Count (130-400) 10^3/c mm MPV (7.4-10.4) fL Neut % (Auto) % Lymph % (Auto) % [place] % (Auto) % Eos % (Auto) % Baso % (Auto) % Neut # (Auto) (1.8-7.7) 10^3/u L Lymph # (Auto) (0.8-4.8) 10^3/u L [place] # (Auto) (0.2-0.9) 10^3/u L Eos # (Auto) (0.0-0.8) 10^3/u L Baso # (Auto) (0.0-0.1) 10^3/u L Nucleated RBC % (a uto) % Nucleated RBCs # /100WBC Sodium (136-145) mmol/L Potassium (3.5-5.1) mmol/L Chloride (98-107) mmol/L Carbon Dioxide (22-29) mmol/L Anion Gap (5-19) BUN (8-23) mg/dL Creatinine (0.5-0.9) mg/dL GFR Calculation (90-130) mL/min Glucose (65-115) mg/dL Calculated Osmolal ity (285-295) mOsm/k g Lactate (0.5-2.2) mmol/L Calcium (8.5-10.5) mg/dL Total Bilirubin (0.15-1.2) mg/dL AST (0-32) U/L ALT (0-33) U/L Alkaline Phosphata se (35-105) IU/L C-Reactive Protein (0.0-4.9) mg/L Total Protein (6.6-8.7) g/dL Albumin (3.5-5.2) g/dL Globulin (1.3-4.6) g/dL Lipase (13-60) U/L Urine Color Yellow (Yellow) Urine Appearance Hazy A (CLEAR) Urine pH 5 (5-7) Ur Specific Gravit y 1.020 (1.005-1.030) Urine Protein Neg (Negative) Urine Glucose (UA) Norm (Normal) Urine Ketones Negative (Negative) Urine Blood Neg (Negative) Urine Nitrate Negative (Negative) Urine Bilirubin 1+ H (Negative) Urine Urobilinogen Norm (Negative) mg/dL Ur Leukocyte Lori ase Negative (Negative) Urine RBC None (0-2) /hpf Urine WBC 0-4 H (0-5) /hpf Ur Squamous Epith Cells 5-10 H (0-5) /hpf Amorphous Sediment Not Reportable Urine Bacteria 1+ H (NONE) /hpf Hyaline Casts 5-10 H /lpf Imaging Data ^: CT Abd/Pel: Attestation: I personally reviewed and interpreted this imaging study as follows: Radiologist's impression: [facility] [address] [place] [address] CT Scan Report Signed Patient: Jovita Beyer #: [id number] : 8Acct#:[id number] Age/Sex: 60 / FADM Date: 05/27/20 Loc: ERRoom/Bed: Attending Dr: Ordering Provider/Ordering MD: Edna Peralta MD, [facility] [place] Date of Service: 05/27/20 Procedure(s): CT abdomen pelvis w con* [id number] Accession Number(s): [id number] Report Number: [id number] PROCEDURE INFORMATION: Exam: CT Abdomen And Pelvis With Contrast Exam date and time: 05/27/2020 5:42 PM Age: 60 years old Clinical indication: Abdominal pain; Generalized; Prior surgery; Surgery type: RT kidney, adrenal gland; Additional info: Epigastric pain TECHNIQUE: Imaging protocol: Computed tomography of the abdomen and pelvis with contrast. Radiation optimization: All CT scans at this facility use at least one of these dose optimization techniques: automated exposure control; mA and/or kV adjustment per patient size (includes targeted exams where dose is matched to clinical indication); or iterative reconstruction. Contrast material: VISI 320; Contrast volume: 95 ml; Contrast route: INTRAVENOUS (IV); COMPARISON: 1. CT abdomen pelvis w con* [id number] 05/23/2020 5:[address] abdomen pelvis w con* [id number] 07/19/2019 11:57:[address] chest abd pel w con* 04/28/2020 9:28:21 AM RADIATION DOSE METRICS: Total DLP (mGy-cm): 878.9 FINDINGS: Liver: The multiple simple benign hepatic cysts and benign hemangiomas within the liver are entirely unchanged compared with the previous examination of 05/23/2020. No new abnormality is seen within the liver. There is focal area of hypodensity adjacent to the falciform ligament consistent with focal fatty change not changed from previous. There is a diffuse decrease in hepatic parenchymal density, consistent with mild fatty infiltration. Gallbladder and bile ducts: Normal. No calcified stones. No ductal dilation. Pancreas: The pancreas is normal. Spleen: The spleen is normal. Adrenal glands: Right adrenal has been removed. The left adrenal gland is normal. Kidneys and ureters: There has been a right nephrectomy. The left kidney is normal. There is no evidence of hydronephrosis. There is no evidence of renal or ureteral calcifications. Stomach and bowel: Stomach is moderately dilated with food and fluid. Mildly dilated and thickened small bowel loops are seen throughout the abdomen without obstruction suggesting possible enteritis. Fluid is seen throughout the colon without distention or obstruction. Appendix: A normal appendix is identified. Intraperitoneal space: Unremarkable. No free air. No significant fluid collection. Vasculature: The aorta demonstrates moderate atherosclerotic calcification. There is no evidence of an abdominal aortic aneurysm. Lymph nodes: There is no evidence of lymphadenopathy. Urinary bladder: Unremarkable as visualized. Reproductive: Increased pelvic vascularity around the uterus is again identified with prominent right gonadal vein. Findings could represent pelvic congestion. Correlation with clinical findings is suggested. Bones/joints: There is some degenerative change at the L5-S1 level. Soft tissues: Unremarkable. CT/CT abdomen pelvis w con* [id number] IMPRESSION: 1. Nonspecific gastroenteritis. 2. No evidence of intestinal obstruction. 3. Other incidental findings not changed from prior studies. Radiation Dose CTDIVOL = (mGy): DLP = 878.9 (mGy-cm) Dictated By:Hector Conti Signed By:Albin Contiigned Date/Time:05/27/201832 DD/ 30 Discharge Plan Discharge Patient Disposition: Home Clinical Impression: Pancreatitis Qualifiers: Chronicity: acute Pancreatitis type: unspecified pancreatitis type Acute pancreatitis complication: no infection or necrosis Qualified Code(s): K85.90 - Acute pancreatitis without necrosis or infection, unspecified Condition: Stable Prescriptions: Continued glucosamine sulfate 1,000 mg capsule See Rx Instructions PO BID RF: 0 Keytruda 25 mg/mL solution See Rx Instructions IVP .COMPLEX RF: 0 ascorbic acid (vitamin C) 1,000 mg tablet 500 mg PO DAILY@0900 RF: 0 sennosides [Natural Senna Laxative] 8.6 mg tablet 8.6 mg PO BEDTIME@2200 RF: 0 acetaminophen 500 mg Tablet 500 mg PO Q6H PRN (Reason: Pain) RF: 0 Vitamin D3 25 mcg (1,000 unit) Tablet 25 mcg PO DAILY@0900 RF: 0 hydrocodone-acetaminophen 5-325 mg tablet 1 tab PO Q6H PRN (Reason: pain) Qty: 20 RF: 0 Zofran 4 mg tablet 4 mg PO Q6H PRN (Reason: nausea and vomiting) Qty: 15 RF: 0 Discharge Orders: Discharge ED (Routine); Ordered 05/27/20 Ordered By: Edna Peralta Referrals: Alon Garzon MD [Primary Care Provider] - 1-3 days Discharge Diet: As Directed Discharge Activity: Increase activity as tolerated Patient Instructions: Pancreatitis (ED), Opioid Safety Activity Restrictions/Additional Instructions: Return for any new or worsening symptoms. Consume a liquid diet for the next 2 days and then switch to a soft diet and then regular diet. Follow-up with your primary care provider within 3 days. Take 1 to 2 tablets of the pain medication that you were given a few days ago as needed for pain. Coding Level of Care Code ED Account Processor for Leanne Kaplan
[2020-05-27 19:27] LABS: Urine Appearance Hazy (CLEAR); Urine Color Yellow (Yellow)
[2020-05-27 19:28] LABS: Add Urine Microscopic? YES; Bilirubin Urine 1+ (Negative); Blood Urine Neg (Negative); Glucose Urine UA Norm (Normal); Ketones Urine Negative (Negative); Leukocyte Esterase Urine Negative (Negative); Nitrate Urine Negative (Negative); Protein Urine Neg (Negative); Urobilinogen Urine Norm (Negative); pH Urine 5 (5-7)
[2020-05-27 19:53] LABS: Add Urine Culture? No; Bacteria Urine 1+ /hpf; WBC Urine 0-4 /hpf (0-5)
[2020-05-27] MEDS: morphine 4 mg/mL SDV 1 mL 2 MG IVP (20:31)
== END 2020-05-27 21:30 | disposition home or self-care (01) ==
PROVIDERS: Emergency Provider Family Medicine; PCP Family Medicine
DX: K85.90 Acute pancreatitis without necrosis or infection, unspecified (principal); Z85.528 Personal history of other malignant neoplasm of kidney; Z90.5 Acquired absence of kidney; Z87.891 Personal history of nicotine dependence
CPT/HCPCS: 74177; 80053; 81001; 83605; 83690; 85025; 86140; 96361; 96374; 96375; 99284; J2270; J2405; J7030; Q9967

== ENCOUNTER 2020-06-05 14:51 | Outpatient (CLI) | payer OTHER, SELFPAY ==
[2020-06-05 16:22] LABS: Basophils # 0.1 10^3/uL (0.0-0.1); Basophils % 0.8 %; Hematocrit 36.5 % (37.0-47.0); Hemoglobin 11.8 g/dL (11.5-15.3); Lymphocytes # 0.7 10^3/uL (0.8-4.8); Lymphocytes % 4.2 %; Mean Corpuscular HGB Conc 32.3 g/dL (30.0-36.0); Mean Corpuscular Hemoglobin 31.8 pg (28.0-34.0); Mean Corpuscular Volume 98.4 fL (81-99); Mean Platelet Volume 9.4 fL (7.4-10.4); Monocytes # 0.9 10^3/uL (0.2-0.9); Monocytes % 5.7 %; Neutrophils # 14.64 10^3/uL (1.8-7.7); Neutrophils % 88.4 %; Nucleated Red Blood Cells % 0 %; Platelet Count 489 10^3/cmm (130-400); Red Blood Count 3.71 10^6/uL (4.1-5.3); Red Cell Distribution Width 13.4 % (12.1-15.1); White Blood Count 16.6 10^3/uL (4.0-10.0)
--- NOTE | 2020-06-05 16:56 | ONC FU_ITS ---
Dr. Bai Patient Follow-Up Note Patient: Jovita Beyer Unit #: [id number]: [id number] Dicatated By: Esa Bai M.D.Date of Visit:Jun 05, 2020 Onc Med Follow-up/Prog Note Chief Complaint: Renal cell carcinoma. History of Present Illness: This is a 60 year-old woman with grade 2 papillary renal cell carcinoma, stage III (pT3a, pN1, M0). She has been in good general health. She had presented in June with chills and right upper quadrant abdominal pain. An abdominal ultrasound on 07/19/2019 showed a large right renal mass measuring 9.0 x 6.5 x 8.0 cm, consistent with renal cell neoplasm. A subsequent CT abdomen/pelvis confirmed an enhancing right upper pole renal mass measuring 7.1 x 6.1 x 10.2 cm. The renal veins appeared patent. Enlarged adjacent aortocaval lymph nodes measured 15 and 12 mm. Multiple low-attenuation lesions in the liver were felt to be most consistent with small hepatic cysts. The largest measured 10 mm. Lobulated enhancing uterus had suspected fibroid measuring 2.5 x 2.4 cm. She was referred to Dr. Cortney Sepulveda, at [facility]. She had further evaluation with MRI of the abdomen on 07/31/2019. It showed a large cystic and solid mass in the superior pole of the right kidney measuring 7.6 x 9.5 x 8.0 cm, highly suspicious for primary renal neoplasm. It was noted to abut the adjacent hepatic parenchyma, direct invasion not excluded. It was also noted to abut the infrahepatic IVC with mild narrowing. The right adrenal gland was not visualized due to probable direct invasion. There was no evidence for renal vein tumoral thrombus. An enlarged right pericaval lymph node measuring 1.1 x 1.9 cm was concerning for mili metastasis. There were multiple hepatic cysts and solitary cavernous hemangioma noted within the right lobe of the liver, but without evidence for definite hepatic metastasis. Restaging chest CT on 08/22/2019 showed multiple indeterminate bilateral pulmonary nodules measuring up to 2 mm. Multiple hyper and hypoattenuating lesions in the liver were felt to be concerning for hepatic metastases and upper abdominal lymphadenopathy and left upper quadrant mesenteric soft tissue nodules were also concerning for metastases. There were multiple heterogenous thyroid lobe nodules, most suspicious in the inferior left thyroid lobe measuring approximately 12 mm. On 08/23/2019 she underwent right robotic assisted laparoscopic radical nephrectomy with right pericaval lymph node dissection and wedge liver biopsy. Pathology showed grade 2 papillary renal cell carcinoma, type 2, measuring 7.5 x 6.8 x 5.5 cm. Tumor was noted to extend into the renal sinus, and there was evidence for vascular invasion. The margins were uninvolved. There was involvement in 1 of 5 hilar lymph nodes. The liver biopsy showed benign liver with hemorrhage and no evidence of malignancy. She had an uneventful postoperative course. I had seen her initially on 10/09/2019 in regard to possible adjuvant therapy. With non-clear cell histology, there was no approved treatment to offer her. Following the visit, we began a fairly exhaustive search for active clinical trials, and we found none. In the meantime, it also reached out to pharmaceutical companies, as she was strongly motivated to have some form of adjuvant therapy. She subsequently was approved for off label use of Keytruda, and she was given the option to have a year of adjuvant therapy at a standard dose of 200 mg by IV infusion every 3 weeks. She has a previous history of hypertension. She has had no other ongoing medical illnesses. She also has a history of smoking for 15 years, up to 1/2 pack of cigarettes daily. She quit smoking in July 2019. INTERIM HISTORY: She began cycle 1 of pembrolizumab on 01/03/2020. She tolerated it without acute toxicity. She then continued treatment at 3-week intervals. As of 03/27/2020 her treatment was changed to the 6-week dosing schedule. She tolerated that treatment well. Her surveillance CT scans on 04/28/2020 showed no evidence of recurrence in the nephrectomy bed and no adenopathy or other evidence of disease progression in the chest, abdomen, or pelvis. A tiny sidebranch pancreatic IPMN appeared stable. On 05/08/2020 she continued with the cycle 2 at the 6-week dosing. On 05/23/2020 she was seen in the emergency room with right upper quadrant abdominal pain of several days duration. She was not having any associated nausea/vomiting, and she was not complaining of diarrhea. Her white blood cell count was slightly elevated at 10,200. Her differential showed 4% eosinophils. Renal function was stable with BUN 19 and creatinine 1.3 mg/dL. Alkaline phosphatase was minimally elevated at 114/105 IU/L. Bilirubin and the other liver enzymes were normal. The lipase was at the upper limit of normal at 60 U/L. Her CT abdomen/pelvis showed fluid within the small bowel without evidence of bowel wall thickening, possibly reflecting gastroenteritis. Multiple hypodense foci in the liver appeared stable dating back to June 2019. There were findings suggestive of pelvic congestion syndrome. There were scattered diverticuli in the sigmoid colon without evidence for diverticulitis. She was managed symptomatically with hydrocodone/APAP and ondansetron. On 05/28/2019 when she returned to the emergency room with abdominal pain. Her white blood cell count was 8300. Renal function was stable. Bilirubin and liver enzymes were normal. The lipase was slightly elevated at 70 U/L. Repeat CT abdomen/pelvis showed normal gallbladder and appendix. The liver appeared unchanged. The stomach was noted to be moderately dilated with food and fluid in there were mildly dilated and thickened small bowel loops throughout the abdomen without obstruction, suggesting possible enteritis. She was seen by Dr. 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 She is seen for a follow-up visit. She had started the prednisone at 20 mg twice daily, but it was tapered rapidly. Initially she did feel better, but she has continued to have pain in the mid to upper abdomen and she also complains of having chills. She has not had fever, though. She has had no energy, though it is now getting a little better. She is eating small portions. She does not complain of shortness of breath, cough, or chest pain. She is not having nausea, but she has had some burping. Her bowels are soft. She has had no diarrhea. She has no complaints. She has no significant joint or bone pain. She has had some lightheadedness when her pain is bad. She does not have headache or focal neurologic symptoms. Medications: Cholecalciferol 1 Capsule (of 250 mcg ) Oral daily, Glucosamine HCl 1 Capsule (of 1000 mg) Tablet Oral b.i.d., Senna 1 Capsule (of 8.6 mg) Oral daily, Vitamin C 1 Capsule (of 1000 mg) Oral daily Allergies: No Known Allergies. Vital Signs: Performed on Jun 05, 2020 15:24 Height - 68.00 in Weight - 132 lbs (HIGH) BSA - 1.71 sq.m BMI - 20.07 Temperature - 99.2 F (HIGH) Pulse - 77 /min Respiration - 18 /min BP - 112/66 mm(hg) O2 Sat - 97 % Pain - 4 Fatigue - 8 Physical Examination: Constitutional - She looks a little weak and pale, Eyes - Sclerae nonicteric. Conjunctivae clear, ENMT - No lesions noted in the oral cavity, Hematologic/Lymphatic - No cervical, clavicular, or axillary adenopathy, Respiratory - Lungs are clear with good air movement bilaterally, Cardiovascular - Heart rhythm is regular. There is no murmur, gallop, or rub noted, Abdomen - Mildly tender in the mid to upper abdomen and slightly firm. Liver and spleen are not enlarged. There is no abdominal mass or ascites noted. Bowel sounds are hypoactive but present. There is no inguinal adenopathy, Extremities - No edema, Neurologic - No focal neurologic deficits noted. Problem List: 1. Grade 2 papillary renal cell carcinoma, type 2, stage III (pT3a, pN1, M0). 2. She underwent right robotic assisted, laparoscopic radical nephrectomy with right paracaval lymph node dissection and wedge liver biopsy on 08/23/2019. 3. She has a history of hypertension, not requiring medication. Problems Addressed with this Encounter and Plan: Grade 2 papillary renal cell carcinoma, type 2, stage III (pT3a, pN1, M0). She underwent right robotic assisted, laparoscopic radical nephrectomy with right paracaval lymph node dissection and wedge liver biopsy on 08/23/2019. In the setting of a T3a primary tumor and with lymph node involvement, she was felt to be at high risk for recurrence. Unfortunately we were not able to find a clinical trial for which she was eligible. She was extremely motivated to have some form of adjuvant therapy, and ultimately we were able to get pembrolizumab available for her on a compassionate use basis. She began cycle 1 of adjuvant therapy with pembrolizumab on 01/03/2020. She tolerated it without acute toxicity, and she then continued treatment at 3-week intervals. During subsequent follow-up she has continued to tolerate it with no adverse effects. As of 03/27/2020 her treatment was changed to the 6-week dosing interval. She tolerated that treatment well. Her restaging CT scans on 04/28/2020 showed no evidence of recurrent or metastatic disease. On 05/08/2020 she continued with cycle 2 of pembrolizumab at the 6-week dosing schedule. On 05/23/2020 she presented to the emergency room with abdominal pain. She had slight leukocytosis and eosinophilia. She is also had a slightly elevated serum lipase. Her CT scans have shown findings consistent with enteritis. 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 She had improvement when she first started steroid therapy with prednisone, the dosage was tapered pretty rapidly, and her symptoms then worsened somewhat. At this point I will repeat her laboratory studies to include CBC, comprehensive metabolic profile, sed rate and serum lipase. I am going to have her increase prednisone to 20 mg 3 times daily for 3 days and then decrease to 20 mg twice daily. She has a follow-up visit scheduled for next week. I will change her pain medication to 10 mg immediate release oxycodone to take as needed. If her symptoms worsen she is to go back to the emergency room. Signed By: Esa Bai M.D. <<Signature on File>>
[2020-06-05 17:05] LABS: Alanine Aminotransferase 44 U/L (0-33); Albumin Level 3.5 g/dL (3.5-5.2); Alkaline Phosphatase 112 IU/L (35-105); Anion Gap 18.1 (5-19); Aspartate Amino Transferase 26 U/L (0-32); Blood Urea Nitrogen 22 mg/dL (8-23); Calcium 8.9 mg/dL (8.5-10.5); Carbon Dioxide 23 mmol/L (22-29); Chloride 99 mmol/L (98-107); Globulin 3.5 g/dL (1.3-4.6); Glomerular Filtration Rate 41.5 mL/min (90-130); Glucose 104 mg/dL (65-115); Lipase 276 U/L (13-60); Osmolality Calculated 286 mOsm/kg (285-295); Potassium 4.1 mmol/L (3.5-5.1); Sodium 136 mmol/L (136-145); Total Bilirubin 1.4 mg/dL (0.15-1.2)
[2020-06-05 17:19] LABS: Erythrocyte Sedimentation Rate 87 mm/hr (0-15)
== END 2020-06-05 14:52 | disposition home or self-care (01) ==
PROVIDERS: PCP Family Medicine; Visit Provider Internal Medicine Medical Oncology
DX: C64.1 Malignant neoplasm of right kidney, except renal pelvis (principal); K52.9 Noninfective gastroenteritis and colitis, unspecified; Z90.5 Acquired absence of kidney; Z79.52 Long term (current) use of systemic steroids; Z79.891 Long term (current) use of opiate analgesic; Z79.899 Other long term (current) drug therapy
CPT/HCPCS: 36415; 80053; 83690; 85025; 85651; 99214

== ENCOUNTER 2020-06-19 06:03 | Outpatient (CLI) | payer OTHER, SELFPAY ==
[2020-06-19 09:17] LABS: Basophils % 0.1 %; Eosinophils % 0.1 %; Hematocrit 37.5 % (37.0-47.0); Hemoglobin 12.3 g/dL (11.5-15.3); Lymphocytes % 13.8 %; Mean Corpuscular HGB Conc 32.8 g/dL (30.0-36.0); Mean Corpuscular Hemoglobin 32.1 pg (28.0-34.0); Mean Corpuscular Volume 97.9 fL (81-99); Mean Platelet Volume 8.9 fL (7.4-10.4); Monocytes # 1.1 10^3/uL (0.2-0.9); Monocytes % 7.7 %; Neutrophils # 10.74 10^3/uL (1.8-7.7); Neutrophils % 75.8 %; Nucleated Red Blood Cells % 0 %; Platelet Count 301 10^3/cmm (130-400); Red Blood Count 3.83 10^6/uL (4.1-5.3); Red Cell Distribution Width 13.3 % (12.1-15.1); White Blood Count 14.2 10^3/uL (4.0-10.0)
[2020-06-19 09:34] LABS: Alanine Aminotransferase 22 U/L (0-33); Albumin Level 3.7 g/dL (3.5-5.2); Alkaline Phosphatase 85 IU/L (35-105); Anion Gap 13.3 (5-19); Aspartate Amino Transferase 10 U/L (0-32); Blood Urea Nitrogen 31 mg/dL (8-23); Calcium 8.3 mg/dL (8.5-10.5); Carbon Dioxide 28 mmol/L (22-29); Chloride 101 mmol/L (98-107); Globulin 2.4 g/dL (1.3-4.6); Glomerular Filtration Rate 41.5 mL/min (90-130); Glucose 89 mg/dL (65-115); Lipase 186 U/L (13-60); Osmolality Calculated 292 mOsm/kg (285-295); Potassium 4.3 mmol/L (3.5-5.1); Sodium 138 mmol/L (136-145); Total Bilirubin 0.7 mg/dL (0.15-1.2); Total Protein 6.1 g/dL (6.6-8.7)
[2020-06-19 10:44] LABS: Erythrocyte Sedimentation Rate 10 mm/hr (0-15)
--- NOTE | 2020-06-22 13:22 | ONC FU_ITS ---
Dr. Bai Patient Follow-Up Note Patient: Jovita Beyer Unit #: [id number]: [id number] Dicatated By: Esa Bai M.D.Date of Visit:Jun 19, 2020 Onc Med Follow-up/Prog Note Chief Complaint: Renal cell carcinoma. History of Present Illness: This is a 60 year-old woman with grade 2 papillary renal cell carcinoma, stage III (pT3a, pN1, M0). She has been in good general health. She had presented in June with chills and right upper quadrant abdominal pain. An abdominal ultrasound on 07/19/2019 showed a large right renal mass measuring 9.0 x 6.5 x 8.0 cm, consistent with renal cell neoplasm. A subsequent CT abdomen/pelvis confirmed an enhancing right upper pole renal mass measuring 7.1 x 6.1 x 10.2 cm. The renal veins appeared patent. Enlarged adjacent aortocaval lymph nodes measured 15 and 12 mm. Multiple low-attenuation lesions in the liver were felt to be most consistent with small hepatic cysts. The largest measured 10 mm. Lobulated enhancing uterus had suspected fibroid measuring 2.5 x 2.4 cm. She was referred to Dr. Cortney Sepulveda, at [facility]. She had further evaluation with MRI of the abdomen on 07/31/2019. It showed a large cystic and solid mass in the superior pole of the right kidney measuring 7.6 x 9.5 x 8.0 cm, highly suspicious for primary renal neoplasm. It was noted to abut the adjacent hepatic parenchyma, direct invasion not excluded. It was also noted to abut the infrahepatic IVC with mild narrowing. The right adrenal gland was not visualized due to probable direct invasion. There was no evidence for renal vein tumoral thrombus. An enlarged right pericaval lymph node measuring 1.1 x 1.9 cm was concerning for mili metastasis. There were multiple hepatic cysts and solitary cavernous hemangioma noted within the right lobe of the liver, but without evidence for definite hepatic metastasis. Restaging chest CT on 08/22/2019 showed multiple indeterminate bilateral pulmonary nodules measuring up to 2 mm. Multiple hyper and hypoattenuating lesions in the liver were felt to be concerning for hepatic metastases and upper abdominal lymphadenopathy and left upper quadrant mesenteric soft tissue nodules were also concerning for metastases. There were multiple heterogenous thyroid lobe nodules, most suspicious in the inferior left thyroid lobe measuring approximately 12 mm. On 08/23/2019 she underwent right robotic assisted laparoscopic radical nephrectomy with right pericaval lymph node dissection and wedge liver biopsy. Pathology showed grade 2 papillary renal cell carcinoma, type 2, measuring 7.5 x 6.8 x 5.5 cm. Tumor was noted to extend into the renal sinus, and there was evidence for vascular invasion. The margins were uninvolved. There was involvement in 1 of 5 hilar lymph nodes. The liver biopsy showed benign liver with hemorrhage and no evidence of malignancy. She had an uneventful postoperative course. I had seen her initially on 10/09/2019 in regard to possible adjuvant therapy. With non-clear cell histology, there was no approved treatment to offer her. Following the visit, we began a fairly exhaustive search for active clinical trials, and we found none. In the meantime, it also reached out to pharmaceutical companies, as she was strongly motivated to have some form of adjuvant therapy. She subsequently was approved for off label use of Keytruda, and she was given the option to have a year of adjuvant therapy at a standard dose of 200 mg by IV infusion every 3 weeks. She has a previous history of hypertension. She has had no other ongoing medical illnesses. She also has a history of smoking for 15 years, up to 1/2 pack of cigarettes daily. She quit smoking in July 2019. INTERIM HISTORY: She began cycle 1 of pembrolizumab on 01/03/2020. She tolerated it without acute toxicity. She then continued treatment at 3-week intervals. As of 03/27/2020 her treatment was changed to the 6-week dosing schedule. She tolerated that treatment well. Her surveillance CT scans on 04/28/2020 showed no evidence of recurrence in the nephrectomy bed and no adenopathy or other evidence of disease progression in the chest, abdomen, or pelvis. A tiny sidebranch pancreatic IPMN appeared stable. On 05/08/2020 she continued with the cycle 2 at the 6-week dosing. On 05/23/2020 she was seen in the emergency room with right upper quadrant abdominal pain of several days duration. She was not having any associated nausea/vomiting, and she was not complaining of diarrhea. Her white blood cell count was slightly elevated at 10,200. Her differential showed 4% eosinophils. Renal function was stable with BUN 19 and creatinine 1.3 mg/dL. Alkaline phosphatase was minimally elevated at 114/105 IU/L. Bilirubin and the other liver enzymes were normal. The lipase was at the upper limit of normal at 60 U/L. Her CT abdomen/pelvis showed fluid within the small bowel without evidence of bowel wall thickening, possibly reflecting gastroenteritis. Multiple hypodense foci in the liver appeared stable dating back to June 2019. There were findings suggestive of pelvic congestion syndrome. There were scattered diverticuli in the sigmoid colon without evidence for diverticulitis. She was managed symptomatically with hydrocodone/APAP and ondansetron. On 05/28/2019 when she returned to the emergency room with abdominal pain. Her white blood cell count was 8300. Renal function was stable. Bilirubin and liver enzymes were normal. The lipase was slightly elevated at 70 U/L. Repeat CT abdomen/pelvis showed normal gallbladder and appendix. The liver appeared unchanged. The stomach was noted to be moderately dilated with food and fluid in there were mildly dilated and thickened small bowel loops throughout the abdomen without obstruction, suggesting possible enteritis. She was seen by Dr. 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 I had seen her for follow-up on 06/05/2020. At that point her symptoms had worsened significantly. Her liver enzymes were mildly elevated. Her lipase had increased to 276 U/L and her sed rate was significantly elevated at 87 mm/hour. At that point she was placed back on higher dose steroid with prednisone 20 mg 3 times daily for 3 days and then continued at 20 mg twice daily. She is seen for a scheduled visit. She is feeling much better now with complete resolution of abdominal pain and other GI symptoms. She has good energy and activity tolerance. ECOG score is 0. Her appetite is good. She is not having fever or night sweats. She has no shortness of breath, cough, or chest pain. She has no abdominal pain or nausea. Bowel function has been okay. She has had no diarrhea. She has no complaints. Medications: Cholecalciferol 1 Capsule (of 250 mcg ) Oral daily, Glucosamine HCl 1 Capsule (of 1000 mg) Tablet Oral b.i.d., predniSONE 2 Tablet (of 20 mg) Oral every am, Vitamin C 1 Capsule (of 1000 mg) Oral daily Allergies: No Known Allergies. Vital Signs: Performed on Jun 19, 2020 10:07 Height - 68.00 in Weight - 130.8 lbs (LOW) BSA - 1.71 sq.m BMI - 19.89 Temperature - 97.9 F (LOW) Pulse - 76 /min Respiration - 18 /min BP - 134/79 mm(hg) O2 Sat - 99 % Pain - 0 Physical Examination: Constitutional - She looks good generally, Eyes - Sclerae nonicteric. Conjunctivae clear, ENMT - No lesions noted in the oral cavity, Hematologic/Lymphatic - No cervical, clavicular, or axillary adenopathy, Respiratory - Lungs are clear with good air movement bilaterally, Cardiovascular - Heart rhythm is regular. There is no murmur, gallop, or rub noted, Abdomen - Soft with no abdominal tenderness. Liver and spleen are not enlarged. There is no abdominal mass or ascites noted. There is no inguinal adenopathy, Extremities - No edema. Lab/Imaging: Test performed on Jun 19, 2020 08:50 Lipase 186 U/L Sodium 138 mmol/L Potassium 4.3 mmol/L Chloride 101 mmol/L CO2 28 mmol/L Anion Gap 13.3 BUN 31 mg/dL Creatinine 1.3 mg/dL Cr Clearance (Est) 42.03 mL/min eGFR 41.5 mL/min Glucose 89 mg/dL Osmolality - Calculated 292 mOsm/kg Calcium 8.3 mg/dL Protein, Total 6.1 g/dL Albumin 3.7 g/dL Globulin 2.4 g/dL Bilirubin, Total 0.7 mg/dL ALT (SGPT) 22 U/L AST (SGOT) 10 U/L Alkaline Phosphatase 85 IU/L ESR (Sed Rate) 10 mm/hr WBC 14.2 10 3/uL RBC 3.83 10 6/uL HGB 12.3 g/dL HCT 37.5 % MCV 97.9 fL MCH 32.1 pg MCHC 32.8 g/dL RDW 13.3 % Platelet Count 301 10 3/cmm MPV 8.9 fL Neutrophils 10.74 10 3/uL Lymphocytes 2.0 10 3/uL Monocytes 1.1 10 3/uL Eosinophils 0.0 10 3/uL Basophils 0.0 10 3/uL Neutrophil % 75.8 % Lymphocyte % 13.8 % Monocyte % 7.7 % Eosinophil % 0.1 % Basophils % 0.1 % NRBC % 0 % Problem List: 1. Grade 2 papillary renal cell carcinoma, type 2, stage III (pT3a, pN1, M0). 2. She underwent right robotic assisted, laparoscopic radical nephrectomy with right paracaval lymph node dissection and wedge liver biopsy on 08/23/2019. 3. She has a history of hypertension, not requiring medication. Problems Addressed with this Encounter and Plan: Grade 2 papillary renal cell carcinoma, type 2, stage III (pT3a, pN1, M0). She underwent right robotic assisted, laparoscopic radical nephrectomy with right paracaval lymph node dissection and wedge liver biopsy on 08/23/2019. In the setting of a T3a primary tumor and with lymph node involvement, she was felt to be at high risk for recurrence. Unfortunately we were not able to find a clinical trial for which she was eligible. She was extremely motivated to have some form of adjuvant therapy, and ultimately we were able to get pembrolizumab available for her on a compassionate use basis. She began cycle 1 of adjuvant therapy with pembrolizumab on 01/03/2020. She tolerated it without acute toxicity, and she then continued treatment at 3-week intervals. During subsequent follow-up she has continued to tolerate it with no adverse effects. As of 03/27/2020 her treatment was changed to the 6-week dosing interval. She tolerated that treatment well. Her restaging CT scans on 04/28/2020 showed no evidence of recurrent or metastatic disease. On 05/08/2020 she continued with cycle 2 of pembrolizumab at the 6-week dosing schedule. On 05/23/2020 she presented to the emergency room with abdominal pain. She had slight leukocytosis and eosinophilia. She is also had a slightly elevated serum lipase. Her CT scans have shown findings consistent with enteritis. 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 She had improvement when she first started steroid therapy with prednisone, but the dosage was tapered pretty rapidly, and her symptoms then worsened somewhat. As of her follow-up on 06/05/2020 she restarted on higher dose prednisone. At this point she still has a mildly elevated lipase level, but she is much improved clinically and her sed rate is down to normal. As such, she will now reduce prednisone to 20 mg daily. I will recheck her lab studies in 2 weeks and if there is continued improvement the prednisone will be further tapered to 10 mg daily. I will tentatively plan a follow-up visit in 6 weeks. Signed By: Esa Bai M.D. <<Signature on File>>
== END 2020-06-19 06:04 | disposition home or self-care (01) ==
PROVIDERS: PCP Family Medicine; Visit Provider Internal Medicine Medical Oncology
DX: C64.1 Malignant neoplasm of right kidney, except renal pelvis (principal); I10 Essential (primary) hypertension; K52.9 Noninfective gastroenteritis and colitis, unspecified; R74.8 Abnormal levels of other serum enzymes; Z90.5 Acquired absence of kidney; Z79.52 Long term (current) use of systemic steroids; Z92.22 Personal history of monoclonal drug therapy
CPT/HCPCS: 36415; 80053; 83690; 85025; 85651; 99214

== ENCOUNTER 2020-07-02 06:08 | Outpatient (CLI) | payer OTHER, SELFPAY ==
[2020-07-02 10:34] LABS: Basophils % 0.4 %; Eosinophils # 0.1 10^3/uL (0.0-0.8); Eosinophils % 1.2 %; Hematocrit 37.5 % (37.0-47.0); Hemoglobin 11.9 g/dL (11.5-15.3); Lymphocytes # 2.8 10^3/uL (0.8-4.8); Mean Corpuscular HGB Conc 31.7 g/dL (30.0-36.0); Mean Corpuscular Hemoglobin 31.3 pg (28.0-34.0); Mean Corpuscular Volume 98.7 fL (81-99); Mean Platelet Volume 8.3 fL (7.4-10.4); Monocytes # 0.6 10^3/uL (0.2-0.9); Monocytes % 7.8 %; Neutrophils # 4.45 10^3/uL (1.8-7.7); Neutrophils % 55.2 %; Nucleated Red Blood Cells % 0 %; Platelet Count 327 10^3/cmm (130-400); Red Cell Distribution Width 14.5 % (12.1-15.1); White Blood Count 8.1 10^3/uL (4.0-10.0)
[2020-07-02 10:56] LABS: Alanine Aminotransferase 20 U/L (0-33); Albumin Level 4.3 g/dL (3.5-5.2); Alkaline Phosphatase 79 IU/L (35-105); Anion Gap 12.6 (5-19); Aspartate Amino Transferase 10 U/L (0-32); Carbon Dioxide 29 mmol/L (22-29); Chloride 100 mmol/L (98-107); Globulin 2.4 g/dL (1.3-4.6); Glomerular Filtration Rate 45.5 mL/min (90-130); Glucose 78 mg/dL (65-115); Lipase 100 U/L (13-60); Potassium 3.6 mmol/L (3.5-5.1); Sodium 138 mmol/L (136-145); Total Bilirubin 1.2 mg/dL (0.15-1.2); Total Protein 6.7 g/dL (6.6-8.7)
[2020-07-02 11:15] LABS: Erythrocyte Sedimentation Rate 25 mm/hr (0-15)
[2020-07-02 11:30] LABS: Blood Urea Nitrogen 22 mg/dL (8-23); Calcium 9.1 mg/dL (8.5-10.5); Osmolality Calculated 288 mOsm/kg (285-295)
== END 2020-07-02 06:09 | disposition home or self-care (01) ==
LOC: ONCMED 06:10
PROVIDERS: PCP Family Medicine; Visit Provider Internal Medicine Medical Oncology
DX: C64.1 Malignant neoplasm of right kidney, except renal pelvis (principal); K85.90 Acute pancreatitis without necrosis or infection, unspecified
CPT/HCPCS: 36415; 80053; 83690; 85025; 85651

== ENCOUNTER 2020-07-18 09:07 | Outpatient (CLI) | payer OTHER, SELFPAY ==
[2020-07-18 09:34] LABS: Basophils % 0.6 %; Eosinophils # 0.1 10^3/uL (0.0-0.8); Eosinophils % 0.7 %; Hematocrit 35.8 % (37.0-47.0); Hemoglobin 11.4 g/dL (11.5-15.3); Lymphocytes # 2.5 10^3/uL (0.8-4.8); Lymphocytes % 34.8 %; Mean Corpuscular HGB Conc 31.8 g/dL (30.0-36.0); Mean Corpuscular Hemoglobin 31.7 pg (28.0-34.0); Mean Corpuscular Volume 99.4 fL (81-99); Mean Platelet Volume 8.9 fL (7.4-10.4); Monocytes # 0.5 10^3/uL (0.2-0.9); Monocytes % 7.6 %; Neutrophils # 4.01 10^3/uL (1.8-7.7); Neutrophils % 56.2 %; Nucleated Red Blood Cells % 0 %; Platelet Count 256 10^3/cmm (130-400); Red Cell Distribution Width 14.6 % (12.1-15.1); White Blood Count 7.1 10^3/uL (4.0-10.0)
[2020-07-18 09:51] LABS: Alanine Aminotransferase 10 U/L (0-33); Albumin Level 4.1 g/dL (3.5-5.2); Alkaline Phosphatase 64 IU/L (35-105); Anion Gap 11.1 (5-19); Aspartate Amino Transferase 9 U/L (0-32); Blood Urea Nitrogen 27 mg/dL (8-23); Calcium 8.5 mg/dL (8.5-10.5); Carbon Dioxide 29 mmol/L (22-29); Chloride 103 mmol/L (98-107); Globulin 2.2 g/dL (1.3-4.6); Glomerular Filtration Rate 41.5 mL/min (90-130); Glucose 76 mg/dL (65-115); Lipase 71 U/L (13-60); Osmolality Calculated 292 mOsm/kg (285-295); Potassium 4.1 mmol/L (3.5-5.1); Sodium 139 mmol/L (136-145); Total Bilirubin 0.7 mg/dL (0.15-1.2); Total Protein 6.3 g/dL (6.6-8.7)
== END 2020-07-18 09:08 | disposition home or self-care (01) ==
LOC: ONCMED 09:13
PROVIDERS: PCP Family Medicine; Visit Provider Internal Medicine Medical Oncology
DX: C64.1 Malignant neoplasm of right kidney, except renal pelvis (principal); K52.9 Noninfective gastroenteritis and colitis, unspecified
CPT/HCPCS: 36415; 80053; 83690; 85025

== ENCOUNTER 2020-07-31 06:05 | Outpatient (CLI) | payer OTHER, SELFPAY ==
--- NOTE | 2020-08-03 10:24 | ONC FU_ITS ---
Dr. Bai Patient Follow-Up Note Patient: Jovita Beyer Unit #: [id number]: 1960 Dicatated By: Esa Bai M.D.Date of Visit:July 31, 2020 Onc Med Follow-up/Prog Note Chief Complaint: Renal cell carcinoma. History of Present Illness: This is a 60 year-old woman with grade 2 papillary renal cell carcinoma, stage III (pT3a, pN1, M0). She has been in good general health. She had presented in June with chills and right upper quadrant abdominal pain. An abdominal ultrasound on 07/19/2019 showed a large right renal mass measuring 9.0 x 6.5 x 8.0 cm, consistent with renal cell neoplasm. A subsequent CT abdomen/pelvis confirmed an enhancing right upper pole renal mass measuring 7.1 x 6.1 x 10.2 cm. The renal veins appeared patent. Enlarged adjacent aortocaval lymph nodes measured 15 and 12 mm. Multiple low-attenuation lesions in the liver were felt to be most consistent with small hepatic cysts. The largest measured 10 mm. Lobulated enhancing uterus had suspected fibroid measuring 2.5 x 2.4 cm. She was referred to Dr. Cortney Sepulveda, at [facility]. She had further evaluation with MRI of the abdomen on 07/31/2019. It showed a large cystic and solid mass in the superior pole of the right kidney measuring 7.6 x 9.5 x 8.0 cm, highly suspicious for primary renal neoplasm. It was noted to abut the adjacent hepatic parenchyma, direct invasion not excluded. It was also noted to abut the infrahepatic IVC with mild narrowing. The right adrenal gland was not visualized due to probable direct invasion. There was no evidence for renal vein tumoral thrombus. An enlarged right pericaval lymph node measuring 1.1 x 1.9 cm was concerning for mili metastasis. There were multiple hepatic cysts and solitary cavernous hemangioma noted within the right lobe of the liver, but without evidence for definite hepatic metastasis. Restaging chest CT on 08/22/2019 showed multiple indeterminate bilateral pulmonary nodules measuring up to 2 mm. Multiple hyper and hypoattenuating lesions in the liver were felt to be concerning for hepatic metastases and upper abdominal lymphadenopathy and left upper quadrant mesenteric soft tissue nodules were also concerning for metastases. There were multiple heterogenous thyroid lobe nodules, most suspicious in the inferior left thyroid lobe measuring approximately 12 mm. On 08/23/2019 she underwent right robotic assisted laparoscopic radical nephrectomy with right pericaval lymph node dissection and wedge liver biopsy. Pathology showed grade 2 papillary renal cell carcinoma, type 2, measuring 7.5 x 6.8 x 5.5 cm. Tumor was noted to extend into the renal sinus, and there was evidence for vascular invasion. The margins were uninvolved. There was involvement in 1 of 5 hilar lymph nodes. The liver biopsy showed benign liver with hemorrhage and no evidence of malignancy. She had an uneventful postoperative course. I had seen her initially on 10/09/2019 in regard to possible adjuvant therapy. With non-clear cell histology, there was no approved treatment to offer her. Following the visit, we began a fairly exhaustive search for active clinical trials, and we found none. In the meantime, it also reached out to pharmaceutical companies, as she was strongly motivated to have some form of adjuvant therapy. She subsequently was approved for off label use of Keytruda, and she was given the option to have a year of adjuvant therapy at a standard dose of 200 mg by IV infusion every 3 weeks. She has a previous history of hypertension. She has had no other ongoing medical illnesses. She also has a history of smoking for 15 years, up to 1/2 pack of cigarettes daily. She quit smoking in July 2019. INTERIM HISTORY: She began cycle 1 of pembrolizumab on 01/03/2020. She tolerated it without acute toxicity. She then continued treatment at 3-week intervals. As of 03/27/2020 her treatment was changed to the 6-week dosing schedule. She tolerated that treatment well. Her surveillance CT scans on 04/28/2020 showed no evidence of recurrence in the nephrectomy bed and no adenopathy or other evidence of disease progression in the chest, abdomen, or pelvis. A tiny sidebranch pancreatic IPMN appeared stable. On 05/08/2020 she continued with the cycle 2 at the 6-week dosing. On 05/23/2020 she was seen in the emergency room with right upper quadrant abdominal pain of several days duration. She was not having any associated nausea/vomiting, and she was not complaining of diarrhea. Her white blood cell count was slightly elevated at 10,200. Her differential showed 4% eosinophils. Renal function was stable with BUN 19 and creatinine 1.3 mg/dL. Alkaline phosphatase was minimally elevated at 114/105 IU/L. Bilirubin and the other liver enzymes were normal. The lipase was at the upper limit of normal at 60 U/L. Her CT abdomen/pelvis showed fluid within the small bowel without evidence of bowel wall thickening, possibly reflecting gastroenteritis. Multiple hypodense foci in the liver appeared stable dating back to June 2019. There were findings suggestive of pelvic congestion syndrome. There were scattered diverticuli in the sigmoid colon without evidence for diverticulitis. She was managed symptomatically with hydrocodone/APAP and ondansetron. On 05/28/2019 when she returned to the emergency room with abdominal pain. Her white blood cell count was 8300. Renal function was stable. Bilirubin and liver enzymes were normal. The lipase was slightly elevated at 70 U/L. Repeat CT abdomen/pelvis showed normal gallbladder and appendix. The liver appeared unchanged. The stomach was noted to be moderately dilated with food and fluid in there were mildly dilated and thickened small bowel loops throughout the abdomen without obstruction, suggesting possible enteritis. She was seen by Dr. 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 I had seen her for follow-up on 06/05/2020. At that point her symptoms had worsened significantly. Her liver enzymes were mildly elevated. Her lipase had increased to 276 U/L and her sed rate was significantly elevated at 87 mm/hour. At that point she was placed back on higher dose steroid with prednisone 20 mg 3 times daily for 3 days and then continued at 20 mg twice daily. During follow-up she had improvement in her clinical status, and she was able to gradually taper the prednisone. As of last week her prednisone dosage was decreased to 10 mg daily. She is seen for a scheduled visit. She has been feeling good generally. She has good energy and activity tolerance. ECOG score is 0. Appetite also has been good. She has no fever or night sweats. She has no shortness of breath, cough, or chest pain. She has not been having abdominal pain or any other GI symptoms. She has no complaints. She has no significant joint or bone pain. She does not complain of headache or dizziness, and she has no focal neurologic symptoms. Medications: Cholecalciferol 1 Capsule (of 250 mcg ) Oral daily, Glucosamine HCl 1 Capsule (of 1000 mg) Tablet Oral b.i.d., predniSONE 2 Tablet (of 20 mg) Oral every am, Vitamin C 1 Capsule (of 1000 mg) Oral daily Allergies: No Known Allergies. Vital Signs: Performed on July 31, 2020 10:57 Height - 68.00 in Weight - 139.2 lbs (HIGH) BSA - 1.75 sq.m BMI - 21.17 Temperature - 98.0 F (LOW) Pulse - 80 /min Respiration - 18 /min BP - 150/89 mm(hg) (HIGH) O2 Sat - 98 % Pain - 0 Fatigue - 0 Physical Examination: Constitutional - She looks good generally, Eyes - Sclerae nonicteric. Conjunctivae clear, ENMT - No lesions noted in the oral cavity, Hematologic/Lymphatic - No cervical, clavicular, or axillary adenopathy, Respiratory - Lungs are clear with good air movement bilaterally, Cardiovascular - Heart rhythm is regular. There is no murmur, gallop, or rub noted, Abdomen - Soft and non-tender. Liver and spleen are not enlarged. There is no abdominal mass or ascites noted and there is no inguinal adenopathy, Extremities - No edema, Neurologic - No focal neurologic deficits noted. Lab/Imaging: CBC shows hemoglobin 11.4 g, white blood cell count 7100, and platelet count 256,000. Comprehensive metabolic profile shows stable renal function with BUN 27 and creatinine 1.3 mg/dL. The bilirubin and liver enzymes are normal. Lipase is just slightly elevated at 70 U/L. Problem List: 1. Grade 2 papillary renal cell carcinoma, type 2, stage III (pT3a, pN1, M0). 2. She underwent right robotic assisted, laparoscopic radical nephrectomy with right paracaval lymph node dissection and wedge liver biopsy on 08/23/2019. 3. She has a history of hypertension, not requiring medication. Problems Addressed with this Encounter and Plan: Patient with grade 2 papillary renal cell carcinoma, type 2, stage III (pT3a, pN1, M0). She underwent right robotic assisted, laparoscopic radical nephrectomy with right paracaval lymph node dissection and wedge liver biopsy on 08/23/2019. In the setting of a T3a primary tumor and with lymph node involvement, she was felt to be at high risk for recurrence. Unfortunately we were not able to find a clinical trial for which she was eligible. She was extremely motivated to have some form of adjuvant therapy, and ultimately we were able to get pembrolizumab available for her on a compassionate use basis. She began cycle 1 of adjuvant therapy with pembrolizumab on 01/03/2020. She tolerated it without acute toxicity, and she then continued treatment at 3-week intervals. During subsequent follow-up she has continued to tolerate it with no adverse effects. As of 03/27/2020 her treatment was changed to the 6-week dosing interval. She tolerated that treatment well. Her restaging CT scans on 04/28/2020 showed no evidence of recurrent or metastatic disease. On 05/08/2020 she continued with cycle 2 of pembrolizumab at the 6-week dosing schedule. On 05/23/2020 she presented to the emergency room with abdominal pain. She had slight leukocytosis and eosinophilia. She is also had a slightly elevated serum lipase. Her CT scans have shown findings consistent with enteritis. 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 She had improvement when she first started steroid therapy with prednisone, but the dosage was tapered pretty rapidly, and her symptoms then worsened somewhat. As of her follow-up on 06/05/2020 she restarted on higher dose prednisone. She then had significant improvement in her clinical status and her prednisone was then tapered more gradually. As of 1 week ago the dosage was decreased to 10 mg daily. She is currently asymptomatic. Her lipase level is just slightly elevated. She will continue prednisone at 10 mg daily for 1 week then decrease to 5 mg daily for an additional 2 weeks. She will then stop the prednisone. She will call if there is any recurrence of GI symptoms. I will otherwise just plan a follow-up visit in 3 months. Signed By: Esa Bai M.D. <<Signature on File>>
== END 2020-07-31 06:06 | disposition home or self-care (01) ==
LOC: ONCMED 06:07
PROVIDERS: PCP Family Medicine; Visit Provider Internal Medicine Medical Oncology
DX: C64.1 Malignant neoplasm of right kidney, except renal pelvis (principal); C77.2 Secondary and unspecified malignant neoplasm of intra-abdominal lymph nodes; K52.9 Noninfective gastroenteritis and colitis, unspecified; Z79.899 Other long term (current) drug therapy; Z92.21 Personal history of antineoplastic chemotherapy; Z90.5 Acquired absence of kidney; Z79.52 Long term (current) use of systemic steroids
CPT/HCPCS: 99214

== ENCOUNTER 2020-12-10 08:56 | Outpatient (CLI) | payer OTHER, SELFPAY ==
[2020-12-10 09:29] LABS: Basophils # 0.1 10^3/uL (0.0-0.1); Basophils % 1.1 %; Eosinophils # 0.4 10^3/uL (0.0-0.8); Eosinophils % 8.8 %; Hematocrit 38.1 % (37.0-47.0); Hemoglobin 12.6 g/dL (11.5-15.3); Lymphocytes # 1.3 10^3/uL (0.8-4.8); Lymphocytes % 27.2 %; Mean Corpuscular HGB Conc 33.1 g/dL (30.0-36.0); Mean Corpuscular Hemoglobin 31.8 pg (28.0-34.0); Mean Corpuscular Volume 96.2 fl (81-99); Mean Platelet Volume 9.7 fL (7.4-10.4); Monocytes # 0.4 10^3/uL (0.2-0.9); Monocytes % 8.8 %; Neutrophils # 2.56 10^3/uL (1.8-7.7); Neutrophils % 53.9 %; Nucleated Red Blood Cells % 0 %; Platelet Count 248 10^3/cmm (130-400); Red Blood Count 3.96 10^6/uL (4.1-5.3); White Blood Count 4.8 10^3/uL (4.0-10.0)
--- NOTE | 2020-12-10 09:40 | CT_ITS ---
WS: [id number] CT CHEST, ABDOMEN AND PELVIS WITH CONTRAST HISTORY: RENAL CELL CANCER TECHNIQUE: Contiguous 5 mm axial imaging performed through the chest, abdomen and pelvis with IV cont rast, oral contrast has been provided. Coronal and sagittal reformats chest. Coronal and sagittal ref ormats through the abdomen and pelvis. All CT scans at [facility] use at least one of these d ose optimization techniques: automated exposure control; mA and/or kV adjustment per patient size (in cludes targeted exams where dose is matched to clinical indication); or iterative reconstruction. CONTRAST: Visipaque 320; 95 mL IV. DLP: 1104.01 mGy.cm COMPARISON: 04/28/2020 and 05/27/[address]: No pulmonary nodules or pneumonia. No pericardial or pleural effusions. Normal-sized thorac ic aorta and pulmonary artery. Normal size heart. No mediastinal adenopathy. Mild thickening at the G E junction of the esophagus is similar to the prior studies. Stable 10 mm LEFT thyroid nodule. Abdomen CT: There are multiple masses throughout the liver. Some of these are cysts. Majority of thes e masses demonstrate peripheral nodular enhancement consistent with hemangiomas. There is an addition al nodule of increased density towards the superior RIGHT lobe of the liver which is stable. These ar e probably all hemangiomas with a few scattered cysts. Portal vein is patent. Gallbladder is normal. Spleen is normal. No adrenal mass. Mild dilatation of the pancreatic duct and there is a side branch IPMN. There is a very small area of decreased attenuation in the uncinate process measuring 12 x 7 mm . Appears slightly more prominent as compared to the prior studies. Short-term follow-up necessary to evaluate for stability. RIGHT nephrectomy. No recurrent mass at the nephrectomy bed. Normal enhancement of the LEFT kidney. S table cortical hypodensity in the mid kidney. Mild atherosclerosis of aorta. No aneurysm. The appendix is not definitely identified. In the central pelvis there is an area of significant wall thickening with adjacent pericolonic inflammation in the sigmoid. Focal area of peripheral enhanceme nt measuring 9 mm in the central portion of this inflammation. This is probably an area of diverticul osis or at the appendix which IUD based upon the appearance. There is narrowing of the lumen but no o bstruction. There are additional diverticula present. Pelvic CT: No free fluid. Normal size anteverted uterus. No pelvic mass. Normal urinary bladder. No osteoblastic or osteolytic bone disease. CT/CT chest abd pel w con* IMPRESSION: 1. Status post RIGHT nephrectomy. No recurrent mass at the renal bed. 2. New subtle area of decreased attenuation in the uncinate process along with minimal pancreatic duct dilatation. Cannot exclude early pancreatic neoplasm. Recommend short-term follow-up CT evaluation, 3 months. 3. Focal area of acute inflammation involving the sigmoid colon with narrowing of the lumen. Differential includes acute diverticulitis and at the epiploic a ppendagitis. 4. No metastatic disease to the lungs. 5. Stable hepatic cysts and hepatic hemangiomas.
[2020-12-10 09:47] LABS: Alanine Aminotransferase 6 U/L (0-33); Alkaline Phosphatase 89 IU/L (35-105); Blood Urea Nitrogen 15 mg/dL (8-23); Calcium 8.9 mg/dL (8.5-10.5); Carbon Dioxide 25 mmol/L (22-29); Chloride 101 mmol/L (98-107); Globulin 2.9 g/dL (1.3-4.6); Glomerular Filtration Rate 45.5 mL/min (90-130); Glucose 91 mg/dL (65-115); Lipase 33 U/L (13-60); Osmolality Calculated 288 mOsm/kg (285-295); Sodium 139 mmol/L (136-145); Total Bilirubin 0.7 mg/dL (0.15-1.2); Total Protein 6.9 g/dL (6.6-8.7)
[2020-12-10] MEDS: iohexol 300 mg/mL 50 mL Btl IV (09:47)
[2020-12-10 09:51] LABS: Anion Gap 17.6 (5-19); Aspartate Amino Transferase 11 U/L (0-32); Lactate Dehydrogenase 182 U/L (135-214); Potassium 4.6 mmol/L (3.5-5.1)
[2020-12-10] MEDS: iodixanol 320 mg/mL 100mL Btl IV (11:32)
== END 2020-12-10 08:57 | disposition home or self-care (01) ==
PROVIDERS: PCP Family Medicine; Visit Provider Internal Medicine Medical Oncology
DX: C64.1 Malignant neoplasm of right kidney, except renal pelvis (principal); K52.9 Noninfective gastroenteritis and colitis, unspecified; K76.89 Other specified diseases of liver; D18.09 Hemangioma of other sites; Z90.5 Acquired absence of kidney
CPT/HCPCS: 36415; 71260; 74177; 80053; 83615; 83690; 85025; Q9967

== ENCOUNTER 2020-12-15 05:55 | Outpatient (CLI) | payer OTHER, SELFPAY ==
--- NOTE | 2020-12-15 14:59 | ONC FU_ITS ---
Dr. Bai Patient Follow-Up Note Patient: Jovita Beyer Unit #: [id number]: [id number] Dicatated By: Esa Bai M.D.Date of Visit:Dec 15, 2020 Onc Med Follow-up/Prog Note Chief Complaint: Renal cell carcinoma. History of Present Illness: This is a 60 year-old woman with grade 2 papillary renal cell carcinoma, stage III (pT3a, pN1, M0). She has been in good general health. She had presented in June with chills and right upper quadrant abdominal pain. An abdominal ultrasound on 07/19/2019 showed a large right renal mass measuring 9.0 x 6.5 x 8.0 cm, consistent with renal cell neoplasm. A subsequent CT abdomen/pelvis confirmed an enhancing right upper pole renal mass measuring 7.1 x 6.1 x 10.2 cm. The renal veins appeared patent. Enlarged adjacent aortocaval lymph nodes measured 15 and 12 mm. Multiple low-attenuation lesions in the liver were felt to be most consistent with small hepatic cysts. The largest measured 10 mm. Lobulated enhancing uterus had suspected fibroid measuring 2.5 x 2.4 cm. She was referred to Dr. Cortney Sepulveda, at [facility]. She had further evaluation with MRI of the abdomen on 07/31/2019. It showed a large cystic and solid mass in the superior pole of the right kidney measuring 7.6 x 9.5 x 8.0 cm, highly suspicious for primary renal neoplasm. It was noted to abut the adjacent hepatic parenchyma, direct invasion not excluded. It was also noted to abut the infrahepatic IVC with mild narrowing. The right adrenal gland was not visualized due to probable direct invasion. There was no evidence for renal vein tumoral thrombus. An enlarged right pericaval lymph node measuring 1.1 x 1.9 cm was concerning for mili metastasis. There were multiple hepatic cysts and solitary cavernous hemangioma noted within the right lobe of the liver, but without evidence for definite hepatic metastasis. Restaging chest CT on 08/22/2019 showed multiple indeterminate bilateral pulmonary nodules measuring up to 2 mm. Multiple hyper and hypoattenuating lesions in the liver were felt to be concerning for hepatic metastases and upper abdominal lymphadenopathy and left upper quadrant mesenteric soft tissue nodules were also concerning for metastases. There were multiple heterogenous thyroid lobe nodules, most suspicious in the inferior left thyroid lobe measuring approximately 12 mm. On 08/23/2019 she underwent right robotic assisted laparoscopic radical nephrectomy with right pericaval lymph node dissection and wedge liver biopsy. Pathology showed grade 2 papillary renal cell carcinoma, type 2, measuring 7.5 x 6.8 x 5.5 cm. Tumor was noted to extend into the renal sinus, and there was evidence for vascular invasion. The margins were uninvolved. There was involvement in 1 of 5 hilar lymph nodes. The liver biopsy showed benign liver with hemorrhage and no evidence of malignancy. She had an uneventful postoperative course. I had seen her initially on 10/09/2019 in regard to possible adjuvant therapy. With non-clear cell histology, there was no approved treatment to offer her. Following the visit, we began a fairly exhaustive search for active clinical trials, and we found none. In the meantime, it also reached out to pharmaceutical companies, as she was strongly motivated to have some form of adjuvant therapy. She subsequently was approved for off label use of Keytruda, and she was given the option to have a year of adjuvant therapy at a standard dose of 200 mg by IV infusion every 3 weeks. She began cycle 1 of pembrolizumab on 01/03/2020. She tolerated it without acute toxicity. She then continued treatment at 3-week intervals. As of 03/27/2020 her treatment was changed to the 6-week dosing schedule. She tolerated that treatment well. Her surveillance CT scans on 04/28/2020 showed no evidence of recurrence in the nephrectomy bed and no adenopathy or other evidence of disease progression in the chest, abdomen, or pelvis. A tiny sidebranch pancreatic IPMN appeared stable. On 05/08/2020 she continued with the cycle 2 at the 6-week dosing. On 05/23/2020 she was seen in the emergency room with right upper quadrant abdominal pain of several days duration. She was not having any associated nausea/vomiting, and she was not complaining of diarrhea. Her white blood cell count was slightly elevated at 10,200. Her differential showed 4% eosinophils. Renal function was stable with BUN 19 and creatinine 1.3 mg/dL. Alkaline phosphatase was minimally elevated at 114/105 IU/L. Bilirubin and the other liver enzymes were normal. The lipase was at the upper limit of normal at 60 U/L. Her CT abdomen/pelvis showed fluid within the small bowel without evidence of bowel wall thickening, possibly reflecting gastroenteritis. Multiple hypodense foci in the liver appeared stable dating back to June 2019. There were findings suggestive of pelvic congestion syndrome. There were scattered diverticuli in the sigmoid colon without evidence for diverticulitis. She was managed symptomatically with hydrocodone/APAP and ondansetron. On 05/28/2019 when she returned to the emergency room with abdominal pain. Her white blood cell count was 8300. Renal function was stable. Bilirubin and liver enzymes were normal. The lipase was slightly elevated at 70 U/L. Repeat CT abdomen/pelvis showed normal gallbladder and appendix. The liver appeared unchanged. The stomach was noted to be moderately dilated with food and fluid in there were mildly dilated and thickened small bowel loops throughout the abdomen without obstruction, suggesting possible enteritis. She was seen by Dr. 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 I had seen her for follow-up on 06/05/2020. At that point her symptoms had worsened significantly. Her liver enzymes were mildly elevated. Her lipase had increased to 276 U/L and her sed rate was significantly elevated at 87 mm/hour. At that point she was placed back on higher dose steroid with prednisone 20 mg 3 times daily for 3 days and then continued at 20 mg twice daily. During follow-up she had improvement in her clinical status, and she was able to gradually taper and eventually discontinue the prednisone. She has a previous history of hypertension. She has had no other ongoing medical illnesses. She also has a history of smoking for 15 years, up to 1/2 pack of cigarettes daily. She quit smoking in July 2019. INTERIM HISTORY: Her surveillance CT scans of the chest, abdomen, and pelvis on 12/10/2020 showed no evidence of recurrent mass in the renal bed. There was a new subtle area of decreased attenuation in the uncinate process along with a minimal pancreatic ductal dilatation with early pancreatic neoplasm not excluded. Also noted a focal area of acute inflammation involving the sigmoid colon with narrowing of the lumen. Multiple masses throughout the liver appeared stable, some consistent with cysts, but the majority showing peripheral nodular enhancement consistent with hemangiomas. There was no evidence of metastatic disease. She is seen for a scheduled visit. She has been feeling good generally. She has good energy and activity tolerance. Appetite also has been good. She has no fever or night sweats. She has had some allergy related sinus symptoms. She does not complain of shortness of breath, cough, or chest pain. She has no GI or complaints. She has no significant joint or bone pain. She does not complain of headache or dizziness. She has no focal neurologic symptoms. Medications: Cholecalciferol 1 Capsule (of 250 mcg ) Oral daily, Glucosamine HCl 1 Capsule (of 1000 mg) Tablet Oral b.i.d., Vitamin C 1 Capsule (of 1000 mg) Oral daily Allergies: No Known Allergies. Vital Signs: Performed on Dec 15, 2020 09:55 Height - 68.00 in Weight - 136.4 lbs (LOW) BSA - 1.74 sq.m BMI - 20.74 Temperature - 98.0 F (LOW) Pulse - 91 /min Respiration - 18 /min BP - 128/86 mm(hg) O2 Sat - 98 % Pain - 0 Fatigue - 0 Physical Examination: Constitutional - She looks good generally, Eyes - Sclerae nonicteric. Conjunctivae clear, ENMT - No lesions noted in the oral cavity, Hematologic/Lymphatic - No cervical, clavicular, or axillary adenopathy, Respiratory - Lungs are clear with good air movement bilaterally, Cardiovascular - Heart rhythm is regular. There is no murmur, gallop, or rub noted, Abdomen - Soft. Liver and spleen are not enlarged. There is no abdominal mass or ascites noted and there is no inguinal adenopathy, Extremities - No edema, Neurologic - No focal neurologic deficits noted. Lab/Imaging: CBC shows hemoglobin 12.6 g, white blood cell count 4800, and platelet count 248,000. Comprehensive metabolic profile shows stable renal function with BUN 15 and creatinine 1.2 mg/dL. Bilirubin and liver enzymes are normal. LDH is normal at 182 U/L. Problem List: 1. Grade 2 papillary renal cell carcinoma, type 2, stage III (pT3a, pN1, M0). 2. She underwent right robotic assisted, laparoscopic radical nephrectomy with right paracaval lymph node dissection and wedge liver biopsy on 08/23/2019. 3. She has a history of hypertension, not requiring medication. Problems Addressed with this Encounter and Plan: Patient with grade 2 papillary renal cell carcinoma, type 2, stage III (pT3a, pN1, M0). She underwent right robotic assisted, laparoscopic radical nephrectomy with right paracaval lymph node dissection and wedge liver biopsy on 08/23/2019. In the setting of a T3a primary tumor and with lymph node involvement, she was felt to be at high risk for recurrence. Unfortunately we were not able to find a clinical trial for which she was eligible. She was extremely motivated to have some form of adjuvant therapy, and ultimately we were able to get pembrolizumab available for her on a compassionate use basis. She began cycle 1 of adjuvant therapy with pembrolizumab on 01/03/2020. She tolerated it without acute toxicity, and she then continued treatment at 3-week intervals. During subsequent follow-up she has continued to tolerate it with no adverse effects. As of 03/27/2020 her treatment was changed to the 6-week dosing interval. She tolerated that treatment well. Her restaging CT scans on 04/28/2020 showed no evidence of recurrent or metastatic disease. On 05/08/2020 she continued with cycle 2 of pembrolizumab at the 6-week dosing schedule. On 05/23/2020 she presented to the emergency room with abdominal pain. She had slight leukocytosis and eosinophilia. She is also had a slightly elevated serum lipase. Her CT scans have shown findings consistent with enteritis. 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 She had improvement when she first started steroid therapy with prednisone, but the dosage was tapered pretty rapidly, and her symptoms then worsened somewhat. As of her follow-up on 06/05/2020 she restarted on higher dose prednisone. She then had significant improvement in her clinical status and her prednisone was able to be gradually tapered and eventually discontinued. Her surveillance CT scans show some changes in the area of the uncinate process of the pancreas and a focal area of acute inflammation involving the sigmoid colon. I suspect this is a residual from the toxicity she experienced with the pembrolizumab. Overall, she appears to be doing well clinically, thus far with no evidence of recurrence of the renal cell cancer. She remains on expectant management. We will see her again in 6 months. Signed By: Esa Bai M.D. <<Signature on File>>
== END 2020-12-15 05:56 | disposition home or self-care (01) ==
LOC: ONCMED 05:57
PROVIDERS: PCP Family Medicine; Visit Provider Internal Medicine Medical Oncology
DX: Z08 Encounter for follow-up examination after completed treatment for malignant neoplasm (principal); Z85.528 Personal history of other malignant neoplasm of kidney; I10 Essential (primary) hypertension; Z90.5 Acquired absence of kidney; Z79.899 Other long term (current) drug therapy; Z92.21 Personal history of antineoplastic chemotherapy
CPT/HCPCS: G0463

== ENCOUNTER 2021-06-09 12:25 | Outpatient (CLI) | payer OTHER, SELFPAY ==
--- NOTE | 2021-06-09 12:30 | CT_ITS ---
WS: [id number] CT chest abd pel w con* REASON FOR EXAM: KIDNEY MALIGNANT NEOPLASM RIGHT IV CONTRAST ADMINISTERED: 95 mL of Visipaque 320. TOTAL EXAM DLP: 1174.[address] scans at [facility] use at least one of these dose optimization techniques: automat ed exposure control; mA and/or kV adjustment per patient size (includes targeted exams where dose is matched to clinical indication); or iterative reconstruction. FINDINGS: CHEST: No mediastinal or hilar adenopathy or mass. No lung nodule lung mass. No pleural effusion. No focal abnormality of the bony thorax. Examination unchanged compared to 12/10/2020. ABDOMEN: Multiple hepatic cysts and cavernous hemangiomas of the liver. Low-attenuation region in the head of the pancreas with mild dilatation of the main pancreatic duct a nd multiple side branches. Status post right nephrectomy. No abdominal mass or adenopathy. No change in these findings compared to the previous examination of 12/10/2020. Previous area of inflammatory change involving the sigmoid colon has resolved. This region appears no rmal except for diverticulosis. No new findings. PELVIS: No mass or adenopathy. No free fluid or focal fluid collection. Prominent pelvic veins. No change compared to 12/10/2020. CT/CT chest abd pel w con* IMPRESSION: Liver and pancreatic changes stable compared to the previous examination of 11/26. 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 The findings in the pancreas appear to have been present since . There does not appear to have been significant interval since that naheed e. No findings of metastatic or recurrent renal carcinoma. Resolution of previous sigmoid inflammatory change.
[2021-06-09] MEDS: iohexol 300 mg/mL 50 mL Btl PO (12:42)
[2021-06-09] MEDS: iodixanol 320 mg/mL 100mL Btl IV (15:06)
== END 2021-06-09 12:26 | disposition home or self-care (01) ==
PROVIDERS: PCP Family Medicine; Visit Provider Internal Medicine Medical Oncology
DX: C64.1 Malignant neoplasm of right kidney, except renal pelvis (principal)
CPT/HCPCS: 71260; 74177

== ENCOUNTER 2021-06-15 13:47 | Outpatient (CLI) | payer OTHER, SELFPAY ==
[2021-06-15 14:41] LABS: Basophils % 0.8 %; Eosinophils # 0.1 10^3/uL (0.0-0.8); Eosinophils % 2.3 %; Hematocrit 40.2 % (37.0-47.0); Hemoglobin 13.4 g/dL (11.5-15.3); Lymphocytes # 1.4 10^3/uL (0.8-4.8); Mean Corpuscular HGB Conc 33.3 g/dL (30.0-36.0); Mean Corpuscular Hemoglobin 32.4 pg (28.0-34.0); Mean Corpuscular Volume 97.1 fl (81-99); Mean Platelet Volume 9.2 fL (7.4-10.4); Monocytes # 0.4 10^3/uL (0.2-0.9); Monocytes % 7.4 %; Neutrophils # 2.85 10^3/uL (1.8-7.7); Neutrophils % 60.3 %; Nucleated Red Blood Cells % 0 %; Platelet Count 255 10^3/cmm (130-400); Red Blood Count 4.14 10^6/uL (4.1-5.3); Red Cell Distribution Width 12.9 % (12.1-15.1); White Blood Count 4.7 10^3/uL (4.0-10.0)
[2021-06-15 15:07] LABS: Alanine Aminotransferase 7 U/L (0-33); Albumin Level 4.8 g/dL (3.5-5.2); Alkaline Phosphatase 78 IU/L (35-105); Anion Gap 14.3 (5-19); Aspartate Amino Transferase 13 U/L (0-32); Blood Urea Nitrogen 16 mg/dL (8-23); Calcium 9.7 mg/dL (8.5-10.5); Carbon Dioxide 25 mmol/L (22-29); Chloride 104 mmol/L (98-107); Globulin 2.3 g/dL (1.3-4.6); Glomerular Filtration Rate 45.4 mL/min (90-130); Glucose 88 mg/dL (65-115); Lactate Dehydrogenase 130 U/L (135-214); Osmolality Calculated 289 mOsm/kg (285-295); Potassium 4.3 mmol/L (3.5-5.1); Sodium 139 mmol/L (136-145); Total Bilirubin 0.7 mg/dL (0.15-1.2); Total Protein 7.1 g/dL (6.6-8.7)
--- NOTE | 2021-06-19 17:11 | ONC FU_ITS ---
Dr. Bai Patient Follow-Up Note Patient: Jovita Beyer Unit #: [id number]: [id number] Dicatated By: Esa Bai M.D.Date of Visit:Jun 15, 2021 Onc Med Follow-up/Prog Note Chief Complaint: Renal cell carcinoma. History of Present Illness: This is a 61 year-old woman with grade 2 papillary renal cell carcinoma, stage III (pT3a, pN1, M0). She has been in good general health. She had presented in June with chills and right upper quadrant abdominal pain. An abdominal ultrasound on 07/19/2019 showed a large right renal mass measuring 9.0 x 6.5 x 8.0 cm, consistent with renal cell neoplasm. A subsequent CT abdomen/pelvis confirmed an enhancing right upper pole renal mass measuring 7.1 x 6.1 x 10.2 cm. The renal veins appeared patent. Enlarged adjacent aortocaval lymph nodes measured 15 and 12 mm. Multiple low-attenuation lesions in the liver were felt to be most consistent with small hepatic cysts. The largest measured 10 mm. Lobulated enhancing uterus had suspected fibroid measuring 2.5 x 2.4 cm. She was referred to Dr. Cortney Sepulveda, at [facility]. She had further evaluation with MRI of the abdomen on 07/31/2019. It showed a large cystic and solid mass in the superior pole of the right kidney measuring 7.6 x 9.5 x 8.0 cm, highly suspicious for primary renal neoplasm. It was noted to abut the adjacent hepatic parenchyma, direct invasion not excluded. It was also noted to abut the infrahepatic IVC with mild narrowing. The right adrenal gland was not visualized due to probable direct invasion. There was no evidence for renal vein tumoral thrombus. An enlarged right pericaval lymph node measuring 1.1 x 1.9 cm was concerning for mili metastasis. There were multiple hepatic cysts and solitary cavernous hemangioma noted within the right lobe of the liver, but without evidence for definite hepatic metastasis. Restaging chest CT on 08/22/2019 showed multiple indeterminate bilateral pulmonary nodules measuring up to 2 mm. Multiple hyper and hypoattenuating lesions in the liver were felt to be concerning for hepatic metastases and upper abdominal lymphadenopathy and left upper quadrant mesenteric soft tissue nodules were also concerning for metastases. There were multiple heterogenous thyroid lobe nodules, most suspicious in the inferior left thyroid lobe measuring approximately 12 mm. On 08/23/2019 she underwent right robotic assisted laparoscopic radical nephrectomy with right pericaval lymph node dissection and wedge liver biopsy. Pathology showed grade 2 papillary renal cell carcinoma, type 2, measuring 7.5 x 6.8 x 5.5 cm. Tumor was noted to extend into the renal sinus, and there was evidence for vascular invasion. The margins were uninvolved. There was involvement in 1 of 5 hilar lymph nodes. The liver biopsy showed benign liver with hemorrhage and no evidence of malignancy. She had an uneventful postoperative course. I had seen her initially on 10/09/2019 in regard to possible adjuvant therapy. With non-clear cell histology, there was no approved treatment to offer her. Following the visit, we began a fairly exhaustive search for active clinical trials, and we found none. In the meantime, it also reached out to pharmaceutical companies, as she was strongly motivated to have some form of adjuvant therapy. She subsequently was approved for off label use of Keytruda, and she was given the option to have a year of adjuvant therapy at a standard dose of 200 mg by IV infusion every 3 weeks. She began cycle 1 of pembrolizumab on 01/03/2020. She tolerated it without acute toxicity. She then continued treatment at 3-week intervals. As of 03/27/2020 her treatment was changed to the 6-week dosing schedule. She tolerated that treatment well. Her surveillance CT scans on 04/28/2020 showed no evidence of recurrence in the nephrectomy bed and no adenopathy or other evidence of disease progression in the chest, abdomen, or pelvis. A tiny sidebranch pancreatic IPMN appeared stable. On 05/08/2020 she continued with the cycle 2 at the 6-week dosing. On 05/23/2020 she was seen in the emergency room with right upper quadrant abdominal pain of several days duration. She was not having any associated nausea/vomiting, and she was not complaining of diarrhea. Her white blood cell count was slightly elevated at 10,200. Her differential showed 4% eosinophils. Renal function was stable with BUN 19 and creatinine 1.3 mg/dL. Alkaline phosphatase was minimally elevated at 114/105 IU/L. Bilirubin and the other liver enzymes were normal. The lipase was at the upper limit of normal at 60 U/L. Her CT abdomen/pelvis showed fluid within the small bowel without evidence of bowel wall thickening, possibly reflecting gastroenteritis. Multiple hypodense foci in the liver appeared stable dating back to June 2019. There were findings suggestive of pelvic congestion syndrome. There were scattered diverticuli in the sigmoid colon without evidence for diverticulitis. She was managed symptomatically with hydrocodone/APAP and ondansetron. On 05/28/2019 when she returned to the emergency room with abdominal pain. Her white blood cell count was 8300. Renal function was stable. Bilirubin and liver enzymes were normal. The lipase was slightly elevated at 70 U/L. Repeat CT abdomen/pelvis showed normal gallbladder and appendix. The liver appeared unchanged. The stomach was noted to be moderately dilated with food and fluid in there were mildly dilated and thickened small bowel loops throughout the abdomen without obstruction, suggesting possible enteritis. She was seen by Dr. 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 I had seen her for follow-up on 06/05/2020. At that point her symptoms had worsened significantly. Her liver enzymes were mildly elevated. Her lipase had increased to 276 U/L and her sed rate was significantly elevated at 87 mm/hour. At that point she was placed back on higher dose steroid with prednisone 20 mg 3 times daily for 3 days and then continued at 20 mg twice daily. During follow-up she had improvement in her clinical status, and she was able to gradually taper and eventually discontinue the prednisone. She has a previous history of hypertension. She has had no other ongoing medical illnesses. She also has a history of smoking for 15 years, up to 1/2 pack of cigarettes daily. She quit smoking in July 2019. INTERIM HISTORY: Her surveillance CT scans of the chest, abdomen, and pelvis on 12/10/2020 showed no evidence of recurrent mass in the renal bed. There was a new subtle area of decreased attenuation in the uncinate process along with a minimal pancreatic ductal dilatation with early pancreatic neoplasm not excluded. Also noted a focal area of acute inflammation involving the sigmoid colon with narrowing of the lumen. Multiple masses throughout the liver appeared stable, some consistent with cysts, but the majority showing peripheral nodular enhancement consistent with hemangiomas. There was no evidence of metastatic disease. Surveillance CT scans on 06/09/2021 showed abnormality in the pancreas which was felt to possibly represent intraductal mucinous papillary tumors, but the findings appeared unchanged dating back to June 2019. There was no evidence for recurrent or metastatic disease. She is seen for a scheduled visit. She has been feeling good generally. She has good energy and activity tolerance. ECOG score is 0. Appetite also is good. She has no fever, night sweats, or hot flashes. She occasionally has sinus drainage. She has not had sore mouth or throat. She does not complain of cough, and she has not been having shortness of breath or chest pain. She currently has no GI or complaints. She says her joints are creaky , but she is not having any significant joint or bone pain. She does not complain of headache or dizziness, and she has no focal neurologic symptoms. Medications: Cholecalciferol 1 Capsule (of 250 mcg ) Oral daily, Glucosamine HCl 1 Capsule (of 1000 mg) Tablet Oral b.i.d., Vitamin C 1 Capsule (of 1000 mg) Oral daily Allergies: No Known Allergies. Vital Signs: Performed on Jun 15, 2021 14:07 Height - 68.00 in Weight - 136.8 lbs (HIGH) BSA - 1.74 sq.m BMI - 20.80 Temperature - 96.5 F (LOW) Pulse - 72 /min Respiration - 16 /min BP - 144/80 mm(hg) (HIGH) O2 Sat - 99 % Pain - 0 Fatigue - 0 Physical Examination: Constitutional - She looks good generally, Eyes - Sclerae nonicteric. Conjunctivae clear, ENMT - No lesions noted in the oral cavity, Hematologic/Lymphatic - No cervical, clavicular, or axillary adenopathy, Respiratory - Lungs are clear with good air movement bilaterally, Cardiovascular - Heart rhythm is regular. There is no murmur, gallop, or rub noted, Abdomen - Soft. Liver and spleen are not enlarged. There is no abdominal mass or ascites noted and there is no inguinal adenopathy, Extremities - No edema, Neurologic - No focal neurologic deficits noted. Lab/Imaging: Test performed on Jun 15, 2021 14:20 LDH (Total) 130 U/L Sodium 139 mmol/L Potassium 4.3 mmol/L Chloride 104 mmol/L CO2 25 mmol/L Anion Gap 14.3 BUN 16 mg/dL Creatinine 1.2 mg/dL Cr Clearance (Est) 47.0100 mL/min eGFR 45.4 mL/min Glucose 88 mg/dL Osmolality - Calculated 289 mOsm/kg Calcium 9.7 mg/dL Protein, Total 7.1 g/dL Albumin 4.8 g/dL Globulin 2.3 g/dL Bilirubin, Total 0.7 mg/dL ALT (SGPT) 7 U/L AST (SGOT) 13 U/L Alkaline Phosphatase 78 IU/L WBC 4.7 10 3/uL RBC 4.14 10 6/uL HGB 13.4 g/dL HCT 40.2 % MCV 97.1 fl MCH 32.4 pg MCHC 33.3 g/dL RDW 12.9 % Platelet Count 255 10 3/cmm MPV 9.2 fL Neutrophils 2.85 10 3/uL Lymphocytes 1.4 10 3/uL Monocytes 0.4 10 3/uL Eosinophils 0.1 10 3/uL Basophils 0.0 10 3/uL Neutrophil % 60.3 % Lymphocyte % 29.0 % Monocyte % 7.4 % Eosinophil % 2.3 % Basophils % 0.8 % NRBC % 0 % Problem List: 1. Grade 2 papillary renal cell carcinoma, type 2, stage III (pT3a, pN1, M0). 2. She underwent right robotic assisted, laparoscopic radical nephrectomy with right paracaval lymph node dissection and wedge liver biopsy on 08/23/2019. 3. She has a history of hypertension, not requiring medication. Problems Addressed with this Encounter and Plan: Patient with grade 2 papillary renal cell carcinoma, type 2, stage III (pT3a, pN1, M0). She underwent right robotic assisted, laparoscopic radical nephrectomy with right paracaval lymph node dissection and wedge liver biopsy on 08/23/2019. In the setting of a T3a primary tumor and with lymph node involvement, she was felt to be at high risk for recurrence. Unfortunately we were not able to find a clinical trial for which she was eligible. She was extremely motivated to have some form of adjuvant therapy, and ultimately we were able to get pembrolizumab available for her on a compassionate use basis. She began cycle 1 of adjuvant therapy with pembrolizumab on 01/03/2020. She tolerated it without acute toxicity, and she then continued treatment at 3-week intervals. During subsequent follow-up she has continued to tolerate it with no adverse effects. As of 03/27/2020 her treatment was changed to the 6-week dosing interval. She tolerated that treatment well. Her restaging CT scans on 04/28/2020 showed no evidence of recurrent or metastatic disease. On 05/08/2020 she continued with cycle 2 of pembrolizumab at the 6-week dosing schedule. On 05/23/2020 she presented to the emergency room with abdominal pain. She had slight leukocytosis and eosinophilia. She is also had a slightly elevated serum lipase. Her CT scans have shown findings consistent with enteritis. 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 She had improvement when she first started steroid therapy with prednisone, but the dosage was tapered pretty rapidly, and her symptoms then worsened somewhat. As of her follow-up on 06/05/2020 she restarted on higher dose prednisone. She then had significant improvement in her clinical status and her prednisone was able to be gradually tapered and eventually discontinued. During follow-up her surveillance CT scans have shown some abnormality in the pancreas which appears to be consistent with intraductal mucinous papillary tumors, but those findings have been stable dating back to June 2019. There has been no evidence of recurrent or metastatic disease by CT scan, and her clinical status remains stable. Overall, she appears to be doing well clinically. She continues on expectant management. I will see her again in 6 months. Signed By: Esa Bai M.D. <<Signature on File>>
== END 2021-06-15 13:48 | disposition home or self-care (01) ==
LOC: ONCMED 13:50
PROVIDERS: PCP Family Medicine; Visit Provider Internal Medicine Medical Oncology
DX: Z08 Encounter for follow-up examination after completed treatment for malignant neoplasm (principal); Z85.528 Personal history of other malignant neoplasm of kidney; I10 Essential (primary) hypertension; Z92.21 Personal history of antineoplastic chemotherapy; Z92.3 Personal history of irradiation
CPT/HCPCS: 36415; 80053; 83615; 85025; 99214

== ENCOUNTER 2022-01-05 13:17 | Outpatient (CLI) | payer OTHER, SELFPAY ==
[2022-01-05 15:17] LABS: Blood Urea Nitrogen 15 mg/dL (8-23); Glomerular Filtration Rate 45.4 mL/min (90-130)
--- NOTE | 2022-01-05 15:30 | CTR_ITS ---
PROCEDURE INFORMATION: Exam: CT Chest With Contrast; Diagnostic Exam date and time: 01/05/2022 3:28 PM Age: 61 years old Clinical indication: Condition or disease; Kidney, right; Follow-up oncological assessment; Prior surgery; Surgery type: RT kidney; Patient HX: Follow up renal cell cancer; Additional info: Renal [place], c[place] [id number] TECHNIQUE: Imaging protocol: Diagnostic computed tomography of the chest with contrast. Radiation optimization: All CT scans at this facility use at least one of these dose optimization techniques: automated exposure control; mA and/or kV adjustment per patient size (includes targeted exams where dose is matched to clinical indication); or iterative reconstruction. Contrast material: OMNI 350; Contrast volume: 95 ml; Contrast route: INTRAVENOUS (IV); COMPARISON: CT chest abd pel w con* 06/09/2021 1:19 PM RADIATION DOSE METRICS: Total DLP (mGy-cm): 1207.53 FINDINGS: Lungs: Unremarkable. No consolidation. No masses. Pleural spaces: Unremarkable. No pneumothorax. No pleural effusion. Heart: Coronary artery atherosclerotic calcifications. Lymph nodes: Unremarkable. No enlarged lymph nodes. Vasculature: Unremarkable. No aortic aneurysm. Bones/joints: Unremarkable. No acute fracture. Soft tissues: Unremarkable. PROCEDURE INFORMATION: Exam: CT Abdomen And Pelvis With Contrast Exam date and time: 01/05/2022 3:28 PM Age: 61 years old Clinical indication: Condition or disease; Kidney, right; Follow-up oncological assessment; Prior surgery; Surgery type: RT kidney; Patient HX: Follow up renal cell cancer; Additional info: Renal cell cancer, cpt [id number] TECHNIQUE: Imaging protocol: Computed tomography of the abdomen and pelvis with contrast. Radiation optimization: All CT scans at this facility use at least one of these dose optimization techniques: automated exposure control; mA and/or kV adjustment per patient size (includes targeted exams where dose is matched to clinical indication); or iterative reconstruction. Contrast material: OMNI 350; Contrast volume: 95 ml; Contrast route: INTRAVENOUS (IV); COMPARISON: CT chest abd pel w con* 06/09/2021 1:19 PM RADIATION DOSE METRICS: Total DLP (mGy-cm): 1207.53 FINDINGS: Liver: Several enhancing lesions are again seen in the liver, measuring 3 cm in the hepatic dome and 11 mm in the left hepatic lobe lateral segment, similar to prior exam. Right hepatic lobe caudal region focal 14.6 mm area, not seen with certainty on prior exam, appears to likely reflect a vessel given this is not seen with certainty on the coronal or sagittal images. Gallbladder and bile ducts: Normal. No calcified stones. No ductal dilation. Pancreas: Pancreatic duct is again seen to be prominent measuring approximately 4.7 mm, similar to prior exam. Spleen: Normal. No splenomegaly. Adrenal glands: Normal. No mass. Kidneys and ureters: Right kidney is absent. Stomach and bowel: Diverticulosis without diverticulitis. Appendix: No evidence of appendicitis. Intraperitoneal space: Unremarkable. No free air. No significant fluid collection. Vasculature: Unremarkable. No abdominal aortic aneurysm. Lymph nodes: Unremarkable. No enlarged lymph nodes. Urinary bladder: Unremarkable as visualized. Reproductive: Unremarkable as visualized. Bones/joints: Unremarkable. No acute fracture. Soft tissues: Unremarkable. CT/CT chest abd pel w con* IMPRESSION: 1. Negative for adenopathy or mass lesion. 2. Coronary artery atherosclerotic calcifications. IMPRESSION: 1. Several enhancing lesions are again seen in the liver, measuring 3 cm in the hepatic dome and 11 mm in the left hepatic lobe lateral segment, similar to prior exam. Stability suggests these reflect a benign process such as some angiomas. 2. Right hepatic lobe caudal region focal 14.6 mm area, not seen with certainty on prior exam, appears to likely reflect a vessel given this is not seen with certainty on the coronal or sagittal images. 3. Diverticulosis without diverticulitis. 4. Pancreatic duct is again seen to be prominent measuring approximately 4.7 mm, similar to prior exam. 5. Right kidney is absent.
[2022-01-05] MEDS: iohexol 350 mg/mL 100 mL Btl PO (15:34)
[2022-01-05] MEDS: iohexol 350 mg/mL 100 mL Btl IV (15:34)
== END 2022-01-05 13:18 | disposition home or self-care (01) ==
LOC: RAD 13:18
PROVIDERS: PCP Family Medicine; Visit Provider Internal Medicine Medical Oncology
DX: C64.9 Malignant neoplasm of unspecified kidney, except renal pelvis (principal); K76.9 Liver disease, unspecified; Z90.5 Acquired absence of kidney; K57.90 Diverticulosis of intestine, part unspecified, without perforation or abscess without bleeding
CPT/HCPCS: 71260; 74177; 82565; 84520

== ENCOUNTER 2022-04-06 12:51 | Oncology outpatient (recurring) (ONCR) | payer OTHER, SELFPAY ==
[2022-04-06 13:25] LABS: Basophils % 0.4 %; Eosinophils % 0.4 %; Hematocrit 39.2 % (37.0-47.0); Hemoglobin 12.9 g/dL (11.5-15.3); Lymphocytes # 1.1 10^3/uL (0.8-4.8); Lymphocytes % 25.3 %; Mean Corpuscular HGB Conc 32.9 g/dL (30.0-36.0); Mean Corpuscular Hemoglobin 32.2 pg (28.0-34.0); Mean Corpuscular Volume 97.8 fl (81-99); Monocytes # 0.2 10^3/uL (0.2-0.9); Monocytes % 4.7 %; Neutrophils # 3.11 10^3/uL (1.8-7.7); Nucleated Red Blood Cells % 0 %; Platelet Count 260 10^3/cmm (130-400); Red Blood Count 4.01 10^6/uL (4.1-5.3); Red Cell Distribution Width 12.3 % (12.1-15.1); White Blood Count 4.5 10^3/uL (4.0-10.0)
[2022-04-06 13:56] LABS: Alanine Aminotransferase 11 U/L (0-33); Albumin Level 4.5 g/dL (3.5-5.2); Alkaline Phosphatase 80 U/L (35-105); Anion Gap 13.3 (5-19); Aspartate Amino Transferase 13 U/L (0-32); Blood Urea Nitrogen 15 mg/dL (8-23); Calcium 9.8 mg/dL (8.5-10.5); Carbon Dioxide 28 mmol/L (22-29); Chloride 101 mmol/L (98-107); Globulin 2.2 g/dL (1.3-4.6); Glomerular Filtration Rate 41.2 mL/min (90-130); Glucose 124 mg/dL (65-115); Lactate Dehydrogenase 150 U/L (135-214); Osmolality Calculated 288 mOsm/kg (285-295); Potassium 4.3 mmol/L (3.5-5.1); Sodium 138 mmol/L (136-145); Total Bilirubin 0.8 mg/dL (0.15-1.2); Total Protein 6.7 g/dL (6.6-8.7)
== END 2022-04-27 23:59 | disposition home or self-care (01) ==
PROVIDERS: PCP Family Medicine; Visit Provider Internal Medicine Medical Oncology
DX: Z08 Encounter for follow-up examination after completed treatment for malignant neoplasm (principal); Z85.528 Personal history of other malignant neoplasm of kidney; Z90.5 Acquired absence of kidney; Z92.25 Personal history of immunosuppression therapy
CPT/HCPCS: 36415; 80053; 83615; 85025

== ENCOUNTER 2022-10-05 12:17 | Oncology outpatient (recurring) (ONCR) | payer OTHER, SELFPAY ==
[2022-10-05 12:42] VITALS: BP 134/78; PULSE 85; RESP 16; TEMP 36.6; O2SAT 100
[2022-10-05 12:52] LABS: Basophils % 0.8 %; Eosinophils # 0.1 10^3/uL (0.0-0.8); Eosinophils % 1.5 %; Hemoglobin 13.4 g/dL (11.5-15.3); Lymphocytes # 1.3 10^3/uL (0.8-4.8); Lymphocytes % 28.2 %; Mean Corpuscular HGB Conc 33.5 g/dL (30.0-36.0); Mean Corpuscular Hemoglobin 32.4 pg (28.0-34.0); Mean Corpuscular Volume 96.6 fl (81-99); Mean Platelet Volume 8.7 fL (7.4-10.4); Monocytes # 0.3 10^3/uL (0.2-0.9); Monocytes % 6.8 %; Neutrophils # 2.95 10^3/uL (1.8-7.7); Neutrophils % 62.7 %; Nucleated Red Blood Cells % 0 %; Platelet Count 248 10^3/cmm (130-400); Red Blood Count 4.14 10^6/uL (4.1-5.3); Red Cell Distribution Width 12.6 % (12.1-15.1); White Blood Count 4.7 10^3/uL (4.0-10.0)
[2022-10-05 13:10] LABS: Alanine Aminotransferase 9 U/L (0-33); Albumin Level 4.4 g/dL (3.5-5.2); Alkaline Phosphatase 84 U/L (35-105); Anion Gap 12.8 (5-19); Aspartate Amino Transferase 11 U/L (0-32); Blood Urea Nitrogen 15 mg/dL (8-23); Calcium 9.4 mg/dL (8.5-10.5); Carbon Dioxide 28 mmol/L (22-29); Chloride 100 mmol/L (98-107); Globulin 2.3 g/dL (1.3-4.6); Glucose 105 mg/dL (65-115); Lactate Dehydrogenase 143 U/L (135-214); Osmolality Calculated 285 mOsm/kg (285-295); Potassium 3.8 mmol/L (3.5-5.1); Sodium 137 mmol/L (136-145); Total Bilirubin 0.6 mg/dL (0.15-1.2); Total Protein 6.7 g/dL (6.6-8.7)
== END 2022-10-25 23:59 | disposition home or self-care (01) ==
PROVIDERS: PCP Family Medicine; Visit Provider Internal Medicine Medical Oncology
DX: C64.9 Malignant neoplasm of unspecified kidney, except renal pelvis (principal)
CPT/HCPCS: 36415; 80053; 83615; 85025

== ENCOUNTER 2022-11-03 13:33 | Outpatient (CLI) | payer OTHER, SELFPAY ==
--- NOTE | 2022-11-03 14:30 | CT_ITS ---
WS: [id number] CT CHEST, ABDOMEN AND PELVIS WITH CONTRAST HISTORY: Follow-up renal cancer. TECHNIQUE: Contiguous 5 mm axial imaging performed through the chest, abdomen and pelvis with IV cont rast, oral contrast has been provided. Coronal and sagittal reformats chest. Coronal and sagittal ref ormats through the abdomen and pelvis. All CT scans at [facility] use at least one of these d ose optimization techniques: automated exposure control; mA and/or kV adjustment per patient size (in cludes targeted exams where dose is matched to clinical indication); or iterative reconstruction. CONTRAST: Omnipaque 350; 100 mL IV. DLP: 530.05 mGy.cm COMPARISON: 01/05/2022 and 04/28/[address]: No pulmonary mass or nodules are identified. No pneumonia. Normal size aorta and pulmonary artery. Normal size heart. No pericardial or pleural effusions. Small hiatal hernia. No mediastinal o r hilar adenopathy. Left thyroid nodule 1.4 cm has been previously described. Abdomen CT: Numerous cysts and hemangiomas are reidentified within the liver. Largest hemangioma in t he right superior liver measures 2.4 x 2.8 cm. No solid enhancing masses or new mass identified. No b ile duct dilatation. Normal portal vein. Negative gallbladder and spleen. There is mild diffuse pancr eatic duct dilatation. This has been described on the prior imaging studies. There is a small cluster of cysts in the proximal body of the pancreas. Several lobulated cystic components have been present on prior studies with mild increase. Suspect this is IPMN. Normal size common bile duct. No soft tis radha solid mass within the pancreas. Mild left adrenal thickening. Normal size left kidney. Cortical a edwin of decreased attenuation is stable over multiple prior examinations. Probably representing a too small to characterize cyst. Right kidney has been removed. The right adrenal is not visualized may have been removed or obscured. Normal appearing stomach. No small bowel obstruction. No colon obstruction. No wall thickening. Mild sigmoid diverticulosis without acute diverticulitis. No adenopathy or ascites. Moderate atherosclerosis aorta. Pelvic CT: No free fluid or adenopathy. Minimally distended urinary bladder. Uterus remains present a nd is midline. Mild degenerative disc disease at L5-S1. There are a few small sclerotic foci within the pelvis consi stent with bone islands. Mild SI joint arthritis. No destructive or expansile bone lesions are identi fied. IMPRESSION: 1. Status post right nephrectomy. No recurrent mass at the renal bed. 2. Multiple hepatic cysts and hemangiomas are stable. 3. No metastatic nodules or masses within the lungs and no mediastinal or hilar adenopathy. 4. Mild diverticular disease without acute diverticulitis. 5. Mildly dilated pancreatic duct. There is a small collection of cysts in the proximal body of the p ancreas and near the neck. Probably representing a IPMN. These changes have been present since at [facility] 04/28/2020.
[2022-11-03] MEDS: iohexol 350 mg/mL 500 mL Btl (per mL) IV (14:39)
[2022-11-03] MEDS: iohexol 350 mg/mL 500 mL Btl (per mL) PO (14:39)
== END 2022-11-03 13:34 | disposition home or self-care (01) ==
LOC: RAD 13:34
PROVIDERS: PCP Family Medicine; Visit Provider Nurse Practitioner Family
DX: C64.1 Malignant neoplasm of right kidney, except renal pelvis (principal); Z90.5 Acquired absence of kidney; K76.89 Other specified diseases of liver; D18.03 Hemangioma of intra-abdominal structures; K57.90 Diverticulosis of intestine, part unspecified, without perforation or abscess without bleeding; K86.2 Cyst of pancreas
CPT/HCPCS: 71260; 74177; Q9967

== ENCOUNTER 2023-04-15 07:21 | Outpatient (CLI) | payer MEDICARE, SELFPAY ==
--- NOTE | 2023-04-15 08:30 | CT_ITS ---
WS: [id number] CT ABDOMEN AND PELVIS WITH CONTRAST HISTORY: abdominal cramping/pain TECHNIQUE: Imaging performed of the abdomen and pelvis with IV contrast. Single phase imaging of the abdomen. Coronal and sagittal reformats are submitted. All CT scans at [facility] use at [address] one of these dose optimization techniques: automated exposure control; mA and/or kV adjustment per patient size (includes targeted exams where dose is matched to clinical indication); or iterative re construction. IV CONTRAST: Omnipaque 350; 100 mL IV. Oral contrast: Yes. DLP: 287.43 mGy.cm COMPARISON: 11/03/2022, 01/05/2022, 12/10/2020 Lower thorax: Lung bases are clear. Heart is normal size. Moderate sized hiatal hernia. Liver/biliary system: Patient has known previously described on multiple prior exams hepatic cysts an d hemangiomas. There are now new low-attenuation masses scattered throughout the liver which are susp icious for metastatic disease. These were not present on the most recent examination. The largest mas s measures 2.6 x 1.9 cm in the medial RIGHT lobe of the liver. There are probably 4 new masses. Multi focal hemangiomas and additional too small to characterize cysts are reidentified. No bile duct dilat ation. Gallbladder: Normal. No gallstones or wall thickening. No pericholecystic fluid. Pancreas: Reidentified is the mild pancreatic duct dilatation and the few cystic nodules which have b een described on multiple prior examinations. There is a new low-attenuation nodule in the uncinate p rocess measuring 1.1 x 1.0 cm which has not been present on the prior study. Spleen: Normal size spleen. No mass or infarct. Adrenal glands: RIGHT adrenal gland is difficult to identify. There are soft tissue masses in the reg ion of the RIGHT adrenal gland which are suspicious for metastatic disease. LEFT adrenal gland is neg ative. Right kidney: Prior RIGHT nephrectomy. There is no recurrent mass directly within the renal bed. Just superior to the renal bed and along the crura of the diaphragm is increased soft tissue. Suspect met astatic disease. There is a soft tissue mass which is probably a metastatic deposit measuring 2.3 cm in the region of the RIGHT adrenal gland and diaphragmatic crura. There is additional increased soft tissue in the region of the RIGHT adrenal gland. Left kidney: Normal. Aorta: Mild atherosclerosis with no aneurysm. Lymphadenopathy: There are new soft tissue metastatic deposit, probably lymph nodes, in the upper abd omen. 2.1 cm lymph node just medial to the IVC. Additional soft tissue extends along the RIGHT crura and into the RIGHT adrenal gland. Free fluid: None. GI tract: Stomach is well distended with oral contrast. No small bowel or colon obstruction. Constipa tion. Abdominal wall: Unremarkable abdominal wall. No hernia. Pelvis: No free fluid or adenopathy within the pelvis. Bones: There are several sclerotic foci within the bones which have been present on prior studies. No expansile lesions. IMPRESSION: 1. New low-attenuation masses throughout the liver highly suspicious for metastatic disease. Patient has known and previously described over multiple prior years hemangiomas and cysts. There are new ad ditional lesions suspicious for metastatic sites. The largest is 2.6 x 1.9 cm in the medial RIGHT lob e of the liver. 2. New soft tissue masses directly above the RIGHT renal bed involving the crura of the diaphragm, p ericaval and the adrenal gland. Suspicious for metastatic deposits. 3. There is a new ill-defined mass in the uncinate process of the pancreas measuring 1.1 x 1.0 cm. T his will need to be further evaluate for possible early pancreatic neoplasm. Patient has has known pr ior mild pancreatic duct dilatation with changes likely due to IPMN. This is a new finding in the unc inate process. 4. No ascites. No pulmonary mass at the lung bases.
[2023-04-15] MEDS: iohexol 350 mg/mL 500 mL Btl (per mL) PO (08:34)
[2023-04-15] MEDS: iohexol 350 mg/mL 500 mL Btl (per mL) IV (08:34)
== END 2023-04-15 07:22 | disposition home or self-care (01) ==
LOC: RAD 07:21
PROVIDERS: PCP Family Medicine; Visit Provider Nurse Practitioner Family
DX: C64.1 Malignant neoplasm of right kidney, except renal pelvis (principal); R10.9 Unspecified abdominal pain; K76.9 Liver disease, unspecified; R19.09 Other intra-abdominal and pelvic swelling, mass and lump; K86.9 Disease of pancreas, unspecified
CPT/HCPCS: 74177; Q9967

== ENCOUNTER 2023-04-19 14:00 | Oncology outpatient (recurring) (ONCR) | payer MEDICARE, SELFPAY ==
[2023-03-31 11:15] VITALS: BP 131/76; PULSE 85; RESP 16; TEMP 36.8; O2SAT 100
[2023-03-31 11:23] LABS: Basophils % 0.8 %; Eosinophils # 0.1 10^3/uL (0.0-0.8); Eosinophils % 1.9 %; Hematocrit 40.7 % (36-47); Lymphocytes % 26.4 %; Mean Corpuscular HGB Conc 33.4 g/dL (30-55); Mean Corpuscular Hemoglobin 32.5 pg (27-33); Mean Corpuscular Volume 97.4 fl (85-98); Mean Platelet Volume 8.9 fL (7.4-10.4); Monocytes # 0.3 10^3/uL (0.2-0.9); Monocytes % 7.4 %; Neutrophils # 2.31 10^3/uL (1.8-7.7); Nucleated Red Blood Cells % 0 %; Platelet Count 272 10^3/cmm (157-399); Red Blood Count 4.18 10^6/uL (3.85-5.65); Red Cell Distribution Width 13.2 % (12.1-15.1); White Blood Count 3.67 10^3/uL (3.29-11.43)
[2023-03-31 11:53] LABS: Alanine Aminotransferase 27 U/L (0-33); Albumin Level 4.5 g/dL (3.5-5.2); Alkaline Phosphatase 112 U/L (35-105); Anion Gap 16.2 (5-19); Aspartate Amino Transferase 21 U/L (0-32); Blood Urea Nitrogen 19 mg/dL (8-23); Calcium 9.4 mg/dL (8.5-10.5); Carbon Dioxide 27 mmol/L (22-29); Chloride 102 mmol/L (98-107); Globulin 2.7 g/dL (1.3-4.6); Glomerular Filtration Rate 41.1 mL/min (90-130); Glucose 112 mg/dL (65-115); Osmolality Calculated 295 mOsm/kg (285-295); Potassium 4.2 mmol/L (3.5-5.1); Sodium 141 mmol/L (136-145); Total Bilirubin 0.4 mg/dL (0.15-1.2); Total Protein 7.2 g/dL (6.6-8.7)
[2023-03-31 11:58] LABS: Creatinine Clr Calc Pharmacy 42.4496
[2023-04-01 09:17] LABS: Magnesium 2.1 mg/dL (1.7-2.3)
[2023-04-19 15:04] LABS: Basophils % 0.9 %; Eosinophils % 0.7 %; Lymphocytes # 1.3 10^3/uL (0.8-4.8); Lymphocytes % 27.8 %; Mean Corpuscular HGB Conc 33.5 g/dL (30-55); Mean Corpuscular Hemoglobin 32.8 pg (27-33); Mean Platelet Volume 8.9 fL (7.4-10.4); Monocytes # 0.3 10^3/uL (0.2-0.9); Monocytes % 5.5 %; Neutrophils # 2.95 10^3/uL (1.8-7.7); Neutrophils % 64.9 %; Nucleated Red Blood Cells % 0 %; Platelet Count 249 10^3/cmm (157-399); Red Blood Count 4.08 10^6/uL (3.85-5.65); Red Cell Distribution Width 13.1 % (12.1-15.1); White Blood Count 4.54 10^3/uL (3.29-11.43)
[2023-04-19 15:31] LABS: Tumor Marker Alpha Fetoprotein 2.3 ng/mL (0-8.3)
[2023-04-19 15:42] LABS: Alanine Aminotransferase 21 U/L (0-33); Albumin Level 4.6 g/dL (3.5-5.2); Alkaline Phosphatase 101 U/L (35-105); Anion Gap 13.6 (5-19); Aspartate Amino Transferase 18 U/L (0-32); Blood Urea Nitrogen 14 mg/dL (8-23); Calcium 9.9 mg/dL (8.5-10.5); Carbon Dioxide 29 mmol/L (22-29); Chloride 102 mmol/L (98-107); Globulin 2.8 g/dL (1.3-4.6); Glomerular Filtration Rate 45.1 mL/min (90-130); Glucose 87 mg/dL (65-115); Lactate Dehydrogenase 165 U/L (135-214); Osmolality Calculated 290 mOsm/kg (285-295); Potassium 4.6 mmol/L (3.5-5.1); Sodium 140 mmol/L (136-145); Total Bilirubin 0.5 mg/dL (0.15-1.2); Total Protein 7.4 g/dL (6.6-8.7)
[2023-04-19 15:46] LABS: Cancer Antigen 19 9 9.32 U/mL (0-35)
[2023-04-19 15:47] LABS: Hepatitis A Antibody IgM Non-Reactive (Nonreactive); Hepatitis B Core AB, Total Non-Reactive (Nonreactive); Hepatitis B Surface AB 15.6 (11.5-1000); Hepatitis B Surface Antigen Non-Reactive (Nonreactive); Hepatitis C Virus Antibody Non-Reactive (Nonreactive)
== END 2023-04-27 23:59 | disposition home or self-care (01) ==
PROVIDERS: Internal Medicine; Nurse Practitioner Family; PCP Family Medicine; Visit Provider Internal Medicine Medical Oncology
DX: Z53.9 Procedure and treatment not carried out, unspecified reason (principal); Z08 Encounter for follow-up examination after completed treatment for malignant neoplasm; R93.2 Abnormal findings on diagnostic imaging of liver and biliary tract; K86.89 Other specified diseases of pancreas; R16.0 Hepatomegaly, not elsewhere classified; Z79.899 Other long term (current) drug therapy
CPT/HCPCS: 36415; 80053; 82105; 83615; 83735; 85025; 86301; 86705; 86706; 86709; 86803; 87340; 99214

== ENCOUNTER 2023-05-03 10:52 | Outpatient (CLI) | payer MEDICARE, SELFPAY ==
[2023-05-03 11:12] VITALS: BMI 19.8
[2023-05-03 11:15] VITALS: BP 166/93; PULSE 76; RESP 18; TEMP 36.6; O2SAT 100
[2023-05-03] MEDS: sodium chloride 0.9% 1,000 ML 30 ML IV (11:40)
[2023-05-03 11:58] LABS: INR 0.91 (0.8-1.2)
[2023-05-03 12:17] VITALS: BP 162/78; PULSE 60; RESP 20; O2SAT 98
[2023-05-03 12:18] VITALS: BP 162/78; PULSE 60; RESP 20; TEMP 36.6; O2SAT 98
--- NOTE | 2023-05-03 12:45 | US_ITS ---
WS: [id number] Limited liver ultrasound. Patient presents for biopsy of hepatic masses. History of renal cell cancer. Hepatic masses have been previously identified on multiple imaging studies. Patient has known hepatic hemangiomas and hepatic cyst. New masses suspicious for metastatic disease within the liver. Those n ew masses are very high within the liver and difficult to visualize due to their position. These are not accessible by ultrasound as initially thought. 1 of these masses is closely associated with the h emangiomas therefore biopsy is not recommended of this nodule. I explained in detail to the patient while we cannot proceed with this biopsy. IMPRESSION: 1. The new lesions within the liver suspicious for metastatic disease are not accessible for ultraso und or imaging biopsy due to their position and additional hemangiomas. 2. Recommend surgical evaluation for possible biopsy in the RIGHT renal bed and along the crura of t he diaphragm. 3. I understand patient is to receive a PET/CT in the near future. This may be of benefit to guide p otential biopsy sites.
== END 2023-05-03 12:45 | disposition home or self-care (01) ==
PROVIDERS: Radiology Diagnostic Radiology; PCP Family Medicine; Visit Provider Internal Medicine
DX: R10.9 Unspecified abdominal pain; R16.0 Hepatomegaly, not elsewhere classified; K86.89 Other specified diseases of pancreas
CPT/HCPCS: 36415; 76705; 85610; J7030

== ENCOUNTER 2023-05-17 08:13 | Outpatient (CLI) | payer MEDICARE, SELFPAY ==
--- NOTE | 2023-05-17 08:36 | MM_ITS ---
WS: [id number] SCREENING DIGITAL TOMOSYNTHESIS MAMMOGRAM WITH CAD HISTORY: SCREEN COMPARISON: 01/09/2020 and 08/10/2017 Bilateral CC and MLO with tomosynthesis views submitted. Synthetic mammography reviewed. Computer aid ed detection analyzed. Breast composition: There are scattered areas of fibroglandular density. No suspicious masses, microc alcifications or architectural distortion. IMPRESSION: MM/[place] [id number] BI-RADS: 1-Negative FOLLOW UP: 1 Year Follow-up
--- NOTE | 2023-05-17 12:00 | PETR_ITS ---
PROCEDURE INFORMATION: Exam: PET/CT Skull Base to Mid-thigh Exam date and time: 05/17/2023 12:09 PM Age: 63 years old Clinical indication: New hepatic and extrahepatic masses on the most recent restaging CT on 04/15/2023 suspicious for disseminated metastatic disease. History of renal cell carcinoma status post right radical nephrectomy in 2019. LABS AND CLINICAL REPORTS: Glucose: 89 mg/dl Treatment strategy for malignancy (PET staging): Initial Staging (PI) TECHNIQUE: Imaging protocol: Following at least four-hour fasting and following the injection of radiopharmaceutical, low dose CT images were obtained. Then, PET images were obtained. Attenuation corrected images were constructed using the CT scan. Fused images of PET and CT were reviewed. The standardized uptake values (SUV) reported below are maximum values within a region of interest, expressed in gm/ml. Exam includes orbital meatal line to mid-thigh. Radiopharmaceutical: 13.97 mCi F-18 FDG (Fluorodeoxyglucose), IV. Time of imaging post radiopharmaceutical administration: 1 hour Injection site: Right antecubital vein COMPARISON: CT abdomen pelvis w con04/15/2023, CT chest abdomen pelvis 01/05/2022 and 06/09/2021 FINDINGS: Brain: Visualized brain has normal physiologic uptake. Pharynx: No abnormal uptake. Larynx: No abnormal uptake. Thyroid: No abnormal uptake. Stable 1.7 cm non FDG avid left thyroid nodule on axial image 55 is benign. Lungs, pleura and trachea: No abnormal uptake. No lung nodules or masses. No pleural effusion. Heart: Normal physiologic uptake. There is no cardiomegaly. Coronary artery calcification is present. There is no pericardial effusion. Mediastinal space: No abnormal uptake. Liver: Bilobar masses measuring up to 3.4 cm with the highest uptake of 8.7 SUV compatible with metastases. There are stable simple bilobar cysts measuring up to 1.1 cm. Gallbladder and bile ducts: No abnormal uptake. Pancreas: No abnormal uptake. Spleen: No abnormal uptake. Adrenal glands: 2.4 x 1.5 cm right adrenal mass with uptake of 9.6 SUV is suggestive of metastases. No abnormal uptake in the left adrenal. Kidneys and ureters: Normal physiologic uptake in the solitary left kidney. The right kidney is absent. Stomach and bowel: No abnormal uptake. Intraperitoneal and retroperitoneal spaces: 1.5 cm nodule in the omentum adjacent to the gastric body on axial image 136 with uptake of 12.5 SUV is compatible with omental metastasis. 1.4 cm nodule in the right posterior pelvis adjacent to the rectosigmoid on axial image 187 with increased uptake of 6.7 SUV is suggestive of peritoneal metastasis. No ascites. Urinary bladder: Normal physiologic uptake. Reproductive: No abnormal uptake. Vasculature: No abnormal uptake. Lymph nodes: About 1.6 x 1.3 cm nodule adjacent to the inferior vena cava and the caudate segment of the liver on axial image 122 with high uptake of 10.8 SUV is compatible with metastasis, peritoneal metastasis or metastatic lymph node. No FDG avid lymphadenopathy in the head, neck, chest, and extremities. Bones/joints: No abnormal uptake in the visualized axial and appendicular skeleton. Soft tissues: No abnormal uptake in the visualized head, neck, chest, abdomen, pelvis, and extremities. PET[facility] SUB[facility] [id number] IMPRESSION: There is FDG avid metastatic disease in the abdomen pelvis (bilobar liver metastases, right adrenal mass, omental metastasis adjacent to the stomach, peritoneal metastasis in the right pelvis, perihepatic metastasis representing either additional peritoneal metastasis or metastatic lymph node). No abnormal uptake in the pancreas to corresponds to hypodensity documented on CT on 04/15/2023. Stable benign left thyroid nodule.
== END 2023-05-17 08:14 | disposition home or self-care (01) ==
LOC: RAD 08:13
PROVIDERS: PCP Family Medicine; Visit Provider Family Medicine
DX: R93.2 Abnormal findings on diagnostic imaging of liver and biliary tract (principal); C64.1 Malignant neoplasm of right kidney, except renal pelvis; K86.89 Other specified diseases of pancreas; R16.0 Hepatomegaly, not elsewhere classified
CPT/HCPCS: 77063; 77067; 78815; A9552

== ENCOUNTER 2023-06-28 11:16 | Oncology outpatient (recurring) (ONCR) | payer MEDICARE, SELFPAY ==
[2023-06-28 11:33] LABS: Basophils % 0.7 %; Eosinophils # 0.1 10^3/uL (0.0-0.8); Eosinophils % 1.2 %; Hematocrit 41.4 % (36-47); Lymphocytes # 1.4 10^3/uL (0.8-4.8); Lymphocytes % 23.9 %; Mean Corpuscular HGB Conc 33.6 g/dL (30-55); Mean Corpuscular Hemoglobin 32.2 pg (27-33); Mean Corpuscular Volume 95.8 fl (85-98); Mean Platelet Volume 8.5 fL (7.4-10.4); Monocytes # 0.4 10^3/uL (0.2-0.9); Monocytes % 7.2 %; Neutrophils % 66.7 %; Nucleated Red Blood Cells % 0 %; Platelet Count 346 10^3/cmm (157-399); Red Blood Count 4.32 10^6/uL (3.85-5.65); Red Cell Distribution Width 12.3 % (12.1-15.1); White Blood Count 5.85 10^3/uL (3.29-11.43)
[2023-06-28 11:51] LABS: Alanine Aminotransferase 19 U/L (0-33); Albumin Level 4.6 g/dL (3.5-5.2); Alkaline Phosphatase 106 U/L (35-105); Anion Gap 13.5 (5-19); Aspartate Amino Transferase 15 U/L (0-32); Blood Urea Nitrogen 23 mg/dL (8-23); Calcium 9.9 mg/dL (8.5-10.5); Carbon Dioxide 28 mmol/L (22-29); Chloride 103 mmol/L (98-107); Globulin 2.9 g/dL (1.3-4.6); Glomerular Filtration Rate 49.8 mL/min (90-130); Glucose 111 mg/dL (65-115); Osmolality Calculated 294 mOsm/kg (285-295); Potassium 4.5 mmol/L (3.5-5.1); Sodium 140 mmol/L (136-145); Total Bilirubin 0.4 mg/dL (0.15-1.2); Total Protein 7.5 g/dL (6.6-8.7)
== END 2023-07-26 23:59 | disposition home or self-care (01) ==
PROVIDERS: Nurse Practitioner Family; PCP Family Medicine; Visit Provider Internal Medicine Medical Oncology
DX: Z08 Encounter for follow-up examination after completed treatment for malignant neoplasm; R93.2 Abnormal findings on diagnostic imaging of liver and biliary tract; K86.89 Other specified diseases of pancreas; R16.0 Hepatomegaly, not elsewhere classified; Z79.899 Other long term (current) drug therapy; Z85.528 Personal history of other malignant neoplasm of kidney; Z90.5 Acquired absence of kidney; Z92.25 Personal history of immunosuppression therapy
CPT/HCPCS: 36415; 80053; 85025; 99214

== ENCOUNTER 2024-06-18 08:51 | Outpatient (CLI) | payer MEDICARE, SELFPAY ==
--- NOTE | 2024-06-18 08:53 | MM_ITS ---
WS: [id number] BILATERAL SCREENING DIGITAL TOMOSYNTHESIS MAMMOGRAM WITH CAD HISTORY: SCREENING COMPARISON: 05/17/2023, 01/09/2020 Bilateral CC and MLO views with tomosynthesis and synthetic mammography submitted. Computer aided detection analyzed. Breast composition: The breasts are heterogeneously dense, which may obscure small masses. No suspicious masses, microcalcifications or architectural distortion. Calcification 12:00 RIGHT breast is stable. MM/MM scr BI tomosynthesis [id number] IMPRESSION: BI-RADS: 2 - Benign FOLLOW UP: 1 Year Follow-up
== END 2024-06-18 08:52 | disposition home or self-care (01) ==
LOC: RAD 08:52
PROVIDERS: PCP Family Medicine; Visit Provider Obstetrics & Gynecology
DX: Z12.31 Encounter for screening mammogram for malignant neoplasm of breast (principal); R92.333 Mammographic heterogeneous density, bilateral breasts; R92.1 Mammographic calcification found on diagnostic imaging of breast
CPT/HCPCS: 77063; 77067

== ENCOUNTER 2024-07-07 19:12 | Emergency (ER) | payer MEDICARE, SELFPAY ==
[2024-07-07] VITALS (7 sets, daily range): BP systolic 90–108; BP diastolic 51–71; PULSE 78–87; RESP 14–26; TEMP 36.3; O2SAT 97–100
[2024-07-07] MEDS: ondansetron 2 mg/ML SDV 2 mL 4 MG IVP (20:02)
[2024-07-07] MEDS: LORazepam 2 mg/mL INJ 1 mL IVP (20:02)
[2024-07-07] MEDS: morphine 4 mg/mL SDV 1 mL IVP (20:02)
[2024-07-07] MEDS: sodium chloride 0.9% 1,000 ML 999 ML IV (20:03)
--- NOTE | 2024-07-07 20:28 | ED_ITS ---
Documented by User: Darell Cohen MD 07/07/24 23:03 HPI - General Adult 2 General: Chief complaint: General Medical Stated complaint: PAIN ALL OVER Time Seen by Provider: 07/07/24 19:30 Source: patient and family Mode of arrival: wheelchair Limitations: no limitations History of Present Illness: 64-year-old female taking Cabozantinib 4 0mg daily, atezolizumab immunotherapy infusion once every 3 wks for cancer. Comes in with all of her cramps. She reported has had some cramps in her flank from time to time but now the cramps are all over her body, abdomen limbs chest and back. Patient is crying and tearful but can answer questions and is in the position on her left side of the bed. Patient has been refusing some parts of exam and labs until pain medication is given. Have tried to explain that refusal to be stuck for an IV prevents us from giving the pain medication. Nurse now trying to explain.. Patient denies any lockjaw. Does reports intermittent spasms before this. Patient also takes lisinopril 10 mg daily, levothyroxine 25 mcg, glucosamine/chondroitin, One-A-Day woman's vitamin and vitamin EE vitamin B12 and vitamin D3 Related Data Home Medications ?Medication ?Instructions ?Recorded ?Confirmed ascorbic acid (vitamin C) 1,000 mg 500 mg PO DAILY@090 0 07/19/19 06/28/23 tablet acetaminophen 500 mg tablet 500 mg PO Q6H PRN Pain 06/28/23 cholecalciferol (vitamin D3) 25 25 mcg PO DAILY@0900 0 05/23/20 06/28/23 mcg (1,000 unit) tablet (Vitamin D3) glucosamine sulfate 1,000 mg 2,000 mg PO DAILY 3 06/28/23 capsule vitamin B complex (B 1 tab PO DAILY 04/06/2205/21 Complex-Vitamin B12 tablet) vitamin E mixed 400 unit tablet 1 unit PO DAILY 06/28/23 diphenhydramine HCl 25 mg capsule 25 mg PO TID PRN All ergy Symptoms 10/05/22 06/28/23 (Benadryl) [id number] ac 400 1 tab PO DAILY 02/02/24 04/0 2/24 mcg-calcium carb 500 mg-vit K1 20 mcg tablet (Women's 50 Plus Multivitamin) Previous Rx's ?Medication ?Instructions ?Recorded hydrocodone 5 mg-acetaminophen 325 1 tab PO Q8H PRN pa in #7 tabs 07/08/24 mg tablet ondansetron 4 mg disintegrating 4 mg PO Q6H PRN nausea and 07/08/24 tablet vomiting #14 tabs Allergies Allergy/AdvReac Type Severity Reaction Status Date / Time No Known Allergies Allergy Verified 06/28/23 12:49 Review of Systems 2 General: Reports: 10 or more systems reviewed and unremarkable except in HPI and below PFSH ED 2 PFSH: Medical History (Updated 07/08/24 @ 04:31 by Rich Flores DO) Pancreatic mass Hypertension Renal cell carcinoma Surgical History S/p nephrectomy (08/23/19) Right laparoscopic radical nephrectomy with pericaval lymph node dissection and with liver biopsy Family History Grandfather Stroke Social History Smoking and tobacco/nicotine status: former use of tobacco/nicotine Quit status (tobacco/nicotine): has quit using Year quit tobacco: 07/2019 Alcohol intake: current Alcohol intake frequency: holidays/special occasions only Substance/Drug Use: never Physical Exam 2 Narrative: EXAM NARRATIVE: Exam somewhat limited by patient being in a fill position and in distress. Patient is not an extremis just in extreme pain. No apparent tenderness but does report to have cramping all over. Const: COMMON NORMALS: average body habitus, patient oriented x3, healthy appearing, alert and well nourished GENERAL APPEARANCE: well kempt and well developed HENMT: COMMON NORMALS: normocephalic, atraumatic, external ears normal and moist oral mucous membranes HEAD & SCALP: normocephalic and atraumatic E XTERNAL EAR: Yes external ears normal Eye: COMMON NORMALS: Equal, round and reactive pupils present, EOMs intact bilaterally and conjunctivae normal CONJUNCTIVA: Yes conjunctivae normal P UPIL: Yes Equal, round and reactive pupils present Neck/C-Spine: COMMON NORMALS: full ROM, no lymphadenopathy and supple Chest: CHEST: Yes Symmetrical chest wall rise and No Surgical scars present (Chest) Resp: COMMON NORMALS: normal respiratory effort, No retractions, No use of accessory muscles and clear to auscultation bilaterally AUSCULTATION: clear to auscultation bilaterally Cardio: COMMON NORMALS: regular rate, regular rhythm, S1 normal heart sound present, S2 normal heart sound present, No gallops present (Cardio), No clicks present (Cardio), No murmurs present (Cardio) and No rub (Cardio) RATE: r egular rate RHYTHM: regular rhythm HEART SOUNDS: S1 normal heart sound present, S2 normal heart sound present and no murmurs PERIPHERAL PULSES: o ther (Radial pulses 2+ and symmetric) GI: COMMON NORMALS: Soft to palpation, non-tender and no masses INSPECTION: No abdominal distension PALPATION: Yes Soft to palpation, No Guarding due to palpation present (GI) and No Rebound tenderness present : COMMON NORMALS: Yes no CVA tenderness BLADDER/KIDNEY EXAM: Yes no CVA tenderness Back/Pelvis: COMMON NORMALS: no CVA tenderness Neuro: COMMON NORMALS: patient oriented x3 SENSORIUM/ORIENTATION: Yes alert Psych: APPEARANCE: Yes well kempt Skin: COMMON NORMALS: no rashes or lesions noted, no wounds, turgor normal and no jaundice GENERAL SKIN EXAM: no rashes or lesions noted and turgor normal Course 2 Reevaluation(s): Reevaluation #1: Review of patient's cancer medications does include risk of hypocalcemia and multiple other metabolic abnormalities. Including just plain muscle spasms. Patient denies any lockjaw precipitating this. Reevaluation #2: Spoke with oncology at [facility]. They reports she could be having some cramps and pain secondary to the chemotherapy. However that medication can just be held temporarily patient's pain treated and she can be discharged and restarted on her medication when the episode stops. No indication for transfer per their opinion. Time: 22:45 Vital Signs: Vital signs: Vital Signs Temperature 97.3 F L 07/07/24 19:25 Pulse Rate 78 07/08/24 05:00 Respiratory Rate 12 07/08/24 05:00 Blood Pressure 103/67 07/08/24 05:00 Pulse Oximetry 96 07/08/24 05:00 Oxygen Delivery Me thod Room Air 07/08/24 05:00 Oxygen Flow Rate 2 07/07/24 22:58 MDM - General Adult Medical Decision Making Patient global pain and spasms. Elevated lactic acid. Getting fluids. Needs admission for pain control and, hydration and control of spasms. Lab Data 07/08/24 04:04 07/07/24 20:20 Laboratory Results WBC 4.38 10^3/uL (3.29-11.43) 07/07/24 20:20 RBC 2.64 10^6/uL (3.85-5.65) L 07/07/24 20:20 Hgb 9.70 g/dL (11.27-16.99) L 07/08/24 04:04 Hct 29.3 % (36-47) L 07/07/24 20:20 MCV 111.0 fl (85-98) H 07/07/24 20:20 MCH 35.2 pg (27-33) H 07/07/24 20:20 MCHC 31.7 g/dL (30-55) 07/07/24 20:20 RDW 14.9 % (12.1-15.1) 07/07/24 20:20 Plt Count 218 10^3/cmm (157-399) 07/07/24 20:20 MPV 8.8 fL (7.4-10.4) 07/07/24 20:20 Neut % (Auto) 61.7 % 07/07/24 20:20 Lymph % (Auto) 25.3 % 07/07/24 20:20 [place] % (Auto) 5.9 % 07/07/24 20:20 Eos % (Auto) 6.2 % 07/07/24 20:20 Baso % (Auto) 0.7 % 07/07/24 20:20 Neut # (Auto) 2.70 10^3/uL (1.8-7.7) 07/07/24 20:20 Lymph # (Auto) 1.1 10^3/uL (0.8-4.8) 07/07/24 20:20 [place] # (Auto) 0.3 10^3/uL (0.2-0.9) 07/07/24 20:20 Eos # (Auto) 0.3 10^3/uL (0.0-0.8) 07/07/24 20:20 Baso # (Auto) 0.0 10^3/uL (0.0-0.1) 07/07/24 20:20 Nucleated RBC % (auto) 0 % 07/07/24 20:20 Nucleated RBCs # 0.0 /100WBC 07/07/24 20:20 Sodium 139 mmol/L (136-145) 07/07/24 20:20 Potassium 3.8 mmol/L (3.5-5.1) 07/07/24 20:20 Chloride 105 mmol/L (98-107) 07/07/24 20:20 Carbon Dioxide 19 mmol/L (22-29) L 07/07/24 20:20 Anion Gap 18.8 (5-19) 07/07/24 20:20 BUN 29 mg/dL (8-23) H 07/07/24 20:20 Creatinine 1.6 mg/dL (0.5-0.9) H 07/07/24 20:20 GFR Calculation 32.2 mL/min (90-130) L 07/07/24 20:20 Glucose 109 mg/dL (65-115) 07/07/24 20:20 Calculated Osmolality 294 mOsm/kg (285-295) 07/07/24 20:20 Lactic Acid 4.8 mmol/L (0.5-2.2) H* 07/07/24 20:20 Lactic Acid (Sepsis) 1.7 mmol/L (0.5-2.2) 07/07/24 22:57 Calcium 8.3 mg/dL (8.5-10.5) L 07/07/24 20:20 Magnesium 2.1 mg/dL (1.7-2.3) 07/07/24 20:20 Total Bilirubin 0.3 mg/dL (0.15-1.2) 07/07/24 20:20 AST 19 U/L (0-32) 07/07/24 20:20 ALT 24 U/L (0-33) 07/07/24 20:20 Alkaline Phosphatase 74 U/L (35-105) 07/07/24 20:20 Creatine Kinase 158 U/L (26-192) 07/07/24 20:20 Total Protein 5.6 g/dL (6.6-8.7) L 07/07/24 20:20 Albumin 3.3 g/dL (3.5-5.2) L 07/07/24 20:20 Globulin 2.3 g/dL (1.3-4.6) 07/07/24 20:20 Urine Color Yellow (Yellow) 07/08/24 00:56 Urine Appearance Clear (CLEAR) 07/08/24 00:56 Urine pH 5 (5-7) 07/08/24 00:56 Ur Specific [place] 1.010 (1.005-1.030) 07/08/24 00:56 Urine Protein Neg (Negative) 07/08/24 00:56 Urine Glucose (UA) Norm (Normal) 07/08/24 00:56 Urine Ketones Negative (Negative) 07/08/24 00:56 Urine Blood Neg (Negative) 07/08/24 00:56 Urine Nitrate Negative (Negative) 07/08/24 00:56 Urine Bilirubin Neg (Negative) 07/08/24 00:56 Urine Urobilinogen Norm mg/dL (Negative) 07/08/24 00:56 Ur Leukocyte Esterase Negative (Negative) 07/08/24 00:56 Amorphous Sediment Not Reportable 07/08/24 00:56 No radiology studies performed this visit Discharge Plan Discharge Patient Disposition: Home 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 Condition: Stable Prescriptions: New hydrocodone-acetaminophen 5-325 mg tablet 1 tab PO Q8H PRN (Reason: pain) Qty: 7 0RF ondansetron 4 mg tablet,disintegrating 4 mg PO Q6H PRN (Reason: nausea and vomiting) Qty: 14 0RF No Action glucosamine sulfate 1,000 mg capsule 2,000 mg PO DAILY ascorbic acid (vitamin C) 1,000 mg tablet 500 mg PO DAILY@0900 vitamin B complex [B Complex-Vitamin B12] Tablet 1 tab PO DAILY vitamin E mixed 400 unit tablet 1 unit PO DAILY diphenhydramine HCl [Benadryl] 25 mg capsule 25 mg PO TID PRN (Reason: Allergy Symptoms) acetaminophen 500 mg Tablet 500 mg PO Q6H PRN (Reason: Pain) cholecalciferol (vitamin D3) [Vitamin D3] 25 mcg (1,000 unit) Tablet 25 mcg PO DAILY@0900 Women's 50 Plus Multivitamin 400 mcg-500 mg calcium-20 mcg Tablet 1 tab PO DAILY Discharge Orders: Discharge ED (Routine); Ordered 07/08/24 Ordered By: Rich Flores Referrals: Alon Garzon MD [Primary Care Provider] - Patient Instructions: Dehydration (ED), Cancer Pain (ED), Opioid Safety, Pain Management Activity Restrictions/Additional Instructions: Stay hydrated. Return for fever, worsening symptoms despite treatment, any other concerning symptoms. You may take pain medication as needed for significant pain. Call your oncologist tomorrow morning to ensure that they do not want to see you sooner than scheduled. Print Language: Cameroonian Coding Level of Care Code ED Learning Support Services Director for [facility] Documented by User: Rich Flores, 07/08/24 05:45 HPI - General Adult 2 General: Chief complaint: General Medical Stated complaint: PAIN ALL OVER Time Seen by Provider: 07/07/24 19:30 Related Data Home Medications ?Medication ?Instructions ?Recorded ?Confirmed ascorbic acid (vitamin C) 1,000 mg 500 mg PO DAILY@090 0 07/19/19 06/28/23 tablet acetaminophen 500 mg tablet 500 mg PO Q6H PRN Pain 06/28/23 cholecalciferol (vitamin D3) 25 25 mcg PO DAILY@0900 0 05/23/20 06/28/23 mcg (1,000 unit) tablet (Vitamin D3) glucosamine sulfate 1,000 mg 2,000 mg PO DAILY 3 06/28/23 capsule vitamin B complex (B 1 tab PO DAILY 04/06/2205/21 Complex-Vitamin B12 tablet) vitamin E mixed 400 unit tablet 1 unit PO DAILY 06/28/23 diphenhydramine HCl 25 mg capsule 25 mg PO TID PRN All ergy Symptoms 10/05/22 06/28/23 (Benadryl) syqqssrz-jyn-gupli ac 400 1 tab PO DAILY 04/29/2305/21 mcg-calcium carb 500 mg-vit K1 20 mcg tablet (Women's 50 Plus Multivitamin) Previous Rx's ?Medication ?Instructions ?Recorded hydrocodone 5 mg-acetaminophen 325 1 tab PO Q8H PRN pa in #7 tabs 07/08/24 mg tablet ondansetron 4 mg disintegrating 4 mg PO Q6H PRN nausea and 07/08/24 tablet vomiting #14 tabs Allergies Allergy/AdvReac Type Severity Reaction Status Date / Time No Known Allergies Allergy Verified 06/28/23 12:49 PFSH ED 2 PFSH: Medical History (Updated 07/08/24 @ 04:31 by Rich Flores DO) Pancreatic mass Hypertension Renal cell carcinoma Surgical History S/p nephrectomy (08/23/19) Right laparoscopic radical nephrectomy with pericaval lymph node dissection and with liver biopsy Family History Grandfather Stroke Social History Smoking and tobacco/nicotine status: former use of tobacco/nicotine Quit status (tobacco/nicotine): has quit using Year quit tobacco: 07/2019 Alcohol intake: current Alcohol intake frequency: holidays/special occasions only Substance/Drug Use: never Course 2 Vital Signs: Vital signs: Vital Signs Temperature 97.3 F L 07/07/24 19:25 Pulse Rate 78 07/08/24 05:00 Respiratory Rate 12 07/08/24 05:00 Blood Pressure 103/67 07/08/24 05:00 Pulse Oximetry 96 07/08/24 05:00 Oxygen Delivery Al thod Room Air 07/08/24 05:00 Oxygen Flow Rate 2 07/07/24 22:58 MDM - General Adult Medical Decision Making Patient global pain and spasms. Elevated lactic acid. Getting fluids. Needs admission for pain control and, hydration and control of spasms. Patient checked out to me and shift change by the previous ER physician. Dr. Cohen and spoken with oncology at [facility]. They were contacted for potential transfer, as we do not have inpatient oncology here. Their recommendations were to admit here for fluid resuscitation and pain control. Symptoms are likely related to her chemotherapy/immunotherapy. Laboratory shows a creatinine of 1.6. Hemoglobin is 9.3. Interestingly, on 06/27 her hemoglobin was 14. Bicarbonate is 19. Lactic acid was 4.8 on arrival, reduced to 1.7 after fluid. She is not neutropenic. Patient has been resting comfortably. Repeat hemoglobin is stable from prior. She has been hydrated. She is not experiencing significant pain currently. She will be flagged for discharge. She is to call tomorrow morning to her oncology department for follow-up appointment. Lab Data 07/08/24 04:04 07/07/24 20:20 Laboratory Results WBC 4.38 10^3/uL (3.29-11.43) 07/07/24 20:20 RBC 2.64 10^6/uL (3.85-5.65) L 07/07/24 20:20 Hgb 9.70 g/dL (11.27-16.99) L 07/08/24 04:04 Hct 29.3 % (36-47) L 07/07/24 20:20 MCV 111.0 fl (85-98) H 07/07/24 20:20 MCH 35.2 pg (27-33) H 07/07/24 20:20 MCHC 31.7 g/dL (30-55) 07/07/24 20:20 RDW 14.9 % (12.1-15.1) 07/07/24 20:20 Plt Count 218 10^3/cmm (157-399) 07/07/24 20:20 MPV 8.8 fL (7.4-10.4) 07/07/24 20:20 Neut % (Auto) 61.7 % 07/07/24 20:20 Lymph % (Auto) 25.3 % 07/07/24 20:20 [place] % (Auto) 5.9 % 07/07/24 20:20 Eos % (Auto) 6.2 % 07/07/24 20:20 Baso % (Auto) 0.7 % 07/07/24 20:20 Neut # (Auto) 2.70 10^3/uL (1.8-7.7) 07/07/24 20:20 Lymph # (Auto) 1.1 10^3/uL (0.8-4.8) 07/07/24 20:20 [place] # (Auto) 0.3 10^3/uL (0.2-0.9) 07/07/24 20:20 Eos # (Auto) 0.3 10^3/uL (0.0-0.8) 07/07/24 20:20 Baso # (Auto) 0.0 10^3/uL (0.0-0.1) 07/07/24 20:20 Nucleated RBC % (auto) 0 % 07/07/24 20:20 Nucleated RBCs # 0.0 /100WBC 07/07/24 20:20 Sodium 139 mmol/L (136-145) 07/07/24 20:20 Potassium 3.8 mmol/L (3.5-5.1) 07/07/24 20:20 Chloride 105 mmol/L (98-107) 07/07/24 20:20 Carbon Dioxide 19 mmol/L (22-29) L 07/07/24 20:20 Anion Gap 18.8 (5-19) 07/07/24 20:20 BUN 29 mg/dL (8-23) H 07/07/24 20:20 Creatinine 1.6 mg/dL (0.5-0.9) H 07/07/24 20:20 GFR Calculation 32.2 mL/min (90-130) L 07/07/24 20:20 Glucose 109 mg/dL (65-115) 07/07/24 20:20 Calculated Osmolality 294 mOsm/kg (285-295) 07/07/24 20:20 Lactic Acid 4.8 mmol/L (0.5-2.2) H* 07/07/24 20:20 Lactic Acid (Sepsis) 1.7 mmol/L (0.5-2.2) 07/07/24 22:57 Calcium 8.3 mg/dL (8.5-10.5) L 07/07/24 20:20 Magnesium 2.1 mg/dL (1.7-2.3) 07/07/24 20:20 Total Bilirubin 0.3 mg/dL (0.15-1.2) 07/07/24 20:20 AST 19 U/L (0-32) 07/07/24 20:20 ALT 24 U/L (0-33) 07/07/24 20:20 Alkaline Phosphatase 74 U/L (35-105) 07/07/24 20:20 Creatine Kinase 158 U/L (26-192) 07/07/24 20:20 Total Protein 5.6 g/dL (6.6-8.7) L 07/07/24 20:20 Albumin 3.3 g/dL (3.5-5.2) L 07/07/24 20:20 Globulin 2.3 g/dL (1.3-4.6) 07/07/24 20:20 Urine Color Yellow (Yellow) 07/08/24 00:56 Urine Appearance Clear (CLEAR) 07/08/24 00:56 Urine pH 5 (5-7) 07/08/24 00:56 Ur Specific [place] 1.010 (1.005-1.030) 07/08/24 00:56 Urine Protein Neg (Negative) 07/08/24 00:56 Urine Glucose (UA) Norm (Normal) 07/08/24 00:56 Urine Ketones Negative (Negative) 07/08/24 00:56 Urine Blood Neg (Negative) 07/08/24 00:56 Urine Nitrate Negative (Negative) 07/08/24 00:56 Urine Bilirubin Neg (Negative) 07/08/24 00:56 Urine Urobilinogen Norm mg/dL (Negative) 07/08/24 00:56 Ur Leukocyte Esterase Negative (Negative) 07/08/24 00:56 Amorphous Sediment Not Reportable 07/08/24 00:56 Discharge Plan Discharge Patient Disposition: Home 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 Condition: Stable Prescriptions: New hydrocodone-acetaminophen 5-325 mg tablet 1 tab PO Q8H PRN (Reason: pain) Qty: 7 0RF ondansetron 4 mg tablet,disintegrating 4 mg PO Q6H PRN (Reason: nausea and vomiting) Qty: 14 0RF No Action glucosamine sulfate 1,000 mg capsule 2,000 mg PO DAILY ascorbic acid (vitamin C) 1,000 mg tablet 500 mg PO DAILY@0900 vitamin B complex [B Complex-Vitamin B12] Tablet 1 tab PO DAILY vitamin E mixed 400 unit tablet 1 unit PO DAILY diphenhydramine HCl [Benadryl] 25 mg capsule 25 mg PO TID PRN (Reason: Allergy Symptoms) acetaminophen 500 mg Tablet 500 mg PO Q6H PRN (Reason: Pain) cholecalciferol (vitamin D3) [Vitamin D3] 25 mcg (1,000 unit) Tablet 25 mcg PO DAILY@0900 Women's 50 Plus Multivitamin 400 mcg-500 mg calcium-20 mcg Tablet 1 tab PO DAILY Discharge Orders: Discharge ED (Routine); Ordered 07/08/24 Ordered By: Rich Flores Referrals: Alon Garzon MD [Primary Care Provider] - Patient Instructions: Dehydration (ED), Cancer Pain (ED), Opioid Safety, Pain Management Activity Restrictions/Additional Instructions: Stay hydrated. Return for fever, worsening symptoms despite treatment, any other concerning symptoms. You may take pain medication as needed for significant pain. Call your oncologist tomorrow morning to ensure that they do not want to see you sooner than scheduled. Print Language: Cameroonian Coding Level of Care Code ED Learning Support Services Director for Leanne Kaplan
[2024-07-07 20:37] LABS: Basophils % 0.7 %; Eosinophils # 0.3 10^3/uL (0.0-0.8); Eosinophils % 6.2 %; Hematocrit 29.3 % (36-47); Lymphocytes # 1.1 10^3/uL (0.8-4.8); Lymphocytes % 25.3 %; Mean Corpuscular HGB Conc 31.7 g/dL (30-55); Mean Corpuscular Hemoglobin 35.2 pg (27-33); Mean Platelet Volume 8.8 fL (7.4-10.4); Monocytes # 0.3 10^3/uL (0.2-0.9); Monocytes % 5.9 %; Neutrophils % 61.7 %; Nucleated Red Blood Cells % 0 %; Platelet Count 218 10^3/cmm (157-399); Red Blood Count 2.64 10^6/uL (3.85-5.65); Red Cell Distribution Width 14.9 % (12.1-15.1); White Blood Count 4.38 10^3/uL (3.29-11.43)
[2024-07-07 20:46] LABS: Alanine Aminotransferase 24 U/L (0-33); Albumin Level 3.3 g/dL (3.5-5.2); Alkaline Phosphatase 74 U/L (35-105); Anion Gap 18.8 (5-19); Aspartate Amino Transferase 19 U/L (0-32); Blood Urea Nitrogen 29 mg/dL (8-23); Calcium 8.3 mg/dL (8.5-10.5); Carbon Dioxide 19 mmol/L (22-29); Chloride 105 mmol/L (98-107); Creatine Phosphokinase 158 U/L (26-192); Creatinine Clr Calc Pharmacy 32.8218; Globulin 2.3 g/dL (1.3-4.6); Glomerular Filtration Rate 32.2 mL/min (90-130); Glucose 109 mg/dL (65-115); Magnesium 2.1 mg/dL (1.7-2.3); Osmolality Calculated 294 mOsm/kg (285-295); Potassium 3.8 mmol/L (3.5-5.1); Sodium 139 mmol/L (136-145); Total Bilirubin 0.3 mg/dL (0.15-1.2); Total Protein 5.6 g/dL (6.6-8.7)
[2024-07-07 20:49] LABS: Lactic Sepsis W/Reflex 4.8 mmol/L (0.5-2.2)
[2024-07-07 22:13] LABS: Reflex Lactate Order REFLEX LACTIC ORDERD
[2024-07-07 23:29] LABS: Lactic Acid level (Lactate) 1.7 mmol/L (0.5-2.2)
[2024-07-08 00:59] VITALS: BP 115/64; PULSE 85; RESP 16; O2SAT 92
[2024-07-08 01:02] LABS: Add Urine Microscopic? NO
[2024-07-08 01:14] LABS: Add Urine Culture? No; Bilirubin Urine Neg (Negative); Blood Urine Neg (Negative); Charge for UA Resulting for Rev; Glucose Urine UA Norm (Normal); Ketones Urine Negative (Negative); Leukocyte Esterase Urine Negative (Negative); Nitrate Urine Negative (Negative); Protein Urine Neg (Negative); Urine Appearance Clear (CLEAR); Urine Color Yellow (Yellow); Urobilinogen Urine Norm (Negative); pH Urine 5 (5-7)
[2024-07-08 01:20] VITALS: BP 94/58; PULSE 78; RESP 12; O2SAT 94
[2024-07-08 02:38] VITALS: BP 108/59; PULSE 80; RESP 15; O2SAT 94
[2024-07-08 03:28] VITALS: BP 98/63; PULSE 74; RESP 15; O2SAT 96
[2024-07-08] MEDS: sodium chloride 0.9% 1,000 ML 200 ML IV (04:20)
[2024-07-08 04:25] VITALS: BP 105/65; O2SAT 97
[2024-07-08 05:00] VITALS: BP 103/67; PULSE 78; RESP 12; O2SAT 96
== END 2024-07-08 05:47 | disposition home or self-care (01) ==
PROVIDERS: Emergency Medicine; Emergency Provider Emergency Medicine; PCP Family Medicine
DX: C64.1 Malignant neoplasm of right kidney, except renal pelvis (principal); C78.7 Secondary malignant neoplasm of liver and intrahepatic bile duct; I10 Essential (primary) hypertension; Z87.891 Personal history of nicotine dependence
CPT/HCPCS: 36415; 80053; 81003; 82550; 83605; 83735; 85018; 85025; 96361; 96374; 96375; 99284; J2060; J2270; J2405; J7030

== ENCOUNTER → 2024-08-06 10:23 | Outpatient (BNVA) | payer MEDICARE, SELFPAY | PROVIDERS: PCP Family Medicine; Visit Provider Obstetrics & Gynecology | DX: Z00.00 Encounter for general adult medical examination without abnormal findings (principal); Z01.419 Encounter for gynecological examination (general) (routine) without abnormal findings | CPT/HCPCS: 87624 ==

== ENCOUNTER 2024-09-13 09:40 | Emergency (ER) | payer MEDICARE, SELFPAY ==
[2024-09-13 09:55] VITALS: BP 160/81; PULSE 70; RESP 16; TEMP 36.4; O2SAT 99
--- NOTE | 2024-09-13 10:18 | W.ED.ABDPA2 ---
HPI - Abdominal Pain General: Chief Complaint: Abdominal Pain Stated Complaint: abd pain Time Seen by Provider: 09/13/24 09:42 History of Present Illness: 64-year-old female presents with left lower quadrant pain this been going on for about a week. She reports that it started out become a dull pain and is now much sharper and has worsened. Patient has chronic abdominal pain but is using more than right upper quadrant due to metastatic liver lesions. She reports this is different than her previous and baseline abdominal pain. Patient's last chemo was 2 weeks ago. She denies any vomiting or diarrhea. Associated Symptoms: Reports nausea; Denies chills, diarrhea, fever(s) and vomiting Related Data Home Medications ?Medication ?Instructions ?Recorded ?Confirmed acetaminophen 500 mg tablet 500 mg PO Q6H PRN Pain 05/23/20 09/13/24 glucosamine sulfate 1,000 mg 2,000 mg PO DAILY 04/06/22 09/13/24 capsule vitamin E mixed 400 unit tablet 1 unit PO DAILY 04/06/22 09/13/24 diphenhydramine HCl 25 mg capsule 25 mg PO TID PRN Allergy Symptoms 10/05/22 09/13/24 (Benadryl) jjfizwrk-gfg-soveg ac 400 1 tab PO DAILY 04/29/23 09/13/24 mcg-calcium carb 500 mg-vit K1 20 mcg tablet (Women's 50 Plus Multivitamin) atezolizumab 840 mg/14 mL (60 See Rx Instructions IV .COMPLEX 08/06/24 09/13/24 mg/mL) intravenous solution (Tecentriq) cabozantinib 40 mg tablet 40 mg PO .5 days a week 08/06/24 09/13/24 levothyroxine 75 mcg capsule 75 mcg PO DAILY 08/06/24 09/13/24 lisinopril 10 mg tablet 10 mg PO DAILY 08/06/24 09/13/24 Previous Rx's ?Medication ?Instructions ?Recorded amoxicillin 500 mg-potassium 1 tab PO Q12H #14 tabs 09/13/24 clavulanate 125 mg tablet (Augmentin) Allergies Allergy/AdvReac Type Severity Reaction Status Date / Time No Known Allergies Allergy Verified 08/06/24 09:38 Review of Systems Const: Denies: fever(s) or chills Card: Denies: chest pain or palpitations Resp: Denies: dyspnea, productive cough or wheezing GI: Reports: abdominal pain and nausea; Denies: vomiting or diarrhea Musc: Denies: neck pain or back pain Neuro: Denies: headache(s) or dizziness PFSH ED PFSH: Medical History Pancreatic mass Hypertension Renal cell carcinoma Surgical History S/p nephrectomy (08/23/19) Right laparoscopic radical nephrectomy with pericaval lymph node dissection and with liver biopsy Family History (Updated 08/06/24 @ 09:40 by Miranda Clifton CMA) Grandfather Stroke Mother Stroke Denies family history of Colon cancer Ovarian cancer Diabetes Heart disease Hyperlipidemia Breast cancer Hypertension Uterine cancer Thyroid disease Social History Smoking and tobacco/nicotine status: never used tobacco/nicotine Quit status (tobacco/nicotine): has quit using Year quit tobacco: 07/2019 Alcohol intake: current Alcohol intake frequency: holidays/special occasions only Substance/Drug Use: never Physical Exam Const: COMMON NORMALS: no acute distress, patient oriented x3 and alert Resp: COMMON NORMALS: normal respiratory effort, No use of accessory muscles and clear to auscultation bilaterally AUSCULTATION: clear to auscultation bilaterally Cardio: COMMON NORMALS: regular rate and regular rhythm RATE: regular rate RHYTHM: regular rhythm GI: COMMON NORMALS: Soft to palpation PALPATION: Yes Soft to palpation and Yes Tenderness to palpation present (GI) Details: LLQ Extremity: COMMON NORMALS: normal to inspection, full ROM and capillary refill normal Neuro: COMMON NORMALS: patient oriented x3, moves all extremities and no focal motor deficits SENSORIUM/ORIENTATION: Yes alert Psych: COMMON NORMALS: mental status grossly normal, Normal thought process present and cooperative THOUGHT PROCESS: Normal thought process present Skin: COMMON NORMALS: no rashes or lesions noted and turgor normal GENERAL SKIN EXAM: no rashes or lesions noted and turgor normal Course Vital Signs: Vital signs: Vital Signs Temperature 97.6 F 09/13/24 09:55 Pulse Rate 72 09/13/24 14:00 Respiratory Rate 16 09/13/24 14:00 Blood Pressure 138/71 09/13/24 14:00 Pulse Oximetry 97 09/13/24 14:00 Oxygen Delivery Me thod Room Air 09/13/24 14:00 MDM - Abdominal Pain Medical Decision Making Patient's labs were ordered and reviewed and appear to be near her baseline. I did obtain a abdomen pelvis CT. That shows some mild colonic wall thickening consistent with likely colitis down the cecum which is where she is tender. There was concern for possible fecal impaction due to the significant mass still in the rectal vault however patient reports that she is having normal bowel movements without any difficulty with normal formed stool which rules out impaction at this time. Patient will be started on Augmentin with her history and colitis. Patient should follow-up with her primary care provider and GI specialist for continued outpatient management. She is stable and discharged home. Lab Data 09/13/24 10:28 09/13/24 10:28 Labs/Radiology: Radiology Impressions Abdomen/Pelvis CT 09/13/24 11:40 IMPRESSION: 1. Interval progression of hepatic disease, upper abdominal adenopathy and right adrenal mass. 2. There is mild colonic wall thickening involving the cecum. Colitis can not be excluded. Clinical correlation is advised. 3. Small right-sided abdominal ascites. 4. Mild calcified atherosclerotic changes are seen throughout the abdominal aorta. 5. There is enlarged left gonadal vein. Increased pelvic varices. Clinical correlation to exclude pelvic congestion syndrome is advised. 6. Significant stool is seen at the rectal vault. Clinical correlation to exclude fecal impaction is advised. 7. Sigmoid colon diverticulosis. 8. Mild lumbar spine degenerative changes. 9. Additional findings as described. Laboratory Results WBC 3.66 10^3/uL (3.29-11.43) 09/13/24 10:28 RBC 3.68 10^6/uL (3.85-5.65) L 09/13/24 10:28 Hgb 12.60 g/dL (11.27-16.99) 09/13/24 10:28 Hct 38.9 % (36-47) 09/13/24 10:28 MCV 105.7 fl (85-98) H 09/13/24 10:28 MCH 34.2 pg (27-33) H 09/13/24 10:28 MCHC 32.4 g/dL (30-55) 09/13/24 10:28 RDW 13.4 % (12.1-15.1) 09/13/24 10:28 Plt Count 313 10^3/cmm (157-399) 09/13/24 10:28 MPV 8.7 fL (7.4-10.4) 09/13/24 10:28 Neut % (Auto) 68.6 % 09/13/24 10:28 Lymph % (Auto) 18.3 % 09/13/24 10:28 Carroll % (Auto) 6.8 % 09/13/24 10:28 Eos % (Auto) 5.2 % 09/13/24 10:28 Baso % (Auto) 0.8 % 09/13/24 10:28 Neut # (Auto) 2.51 10^3/uL (1.8-7.7) 09/13/24 10:28 Lymph # (Auto) 0.7 10^3/uL (0.8-4.8) L 09/13/24 10:28 Carroll # (Auto) 0.3 10^3/uL (0.2-0.9) 09/13/24 10:28 Eos # (Auto) 0.2 10^3/uL (0.0-0.8) 09/13/24 10:28 Baso # (Auto) 0.0 10^3/uL (0.0-0.1) 09/13/24 10:28 Nucleated RBC % (auto) 0 % 09/13/24 10:28 Nucleated RBCs # 0.0 /100WBC 09/13/24 10:28 Sodium 139 mmol/L (136-145) 09/13/24 10:28 Potassium 4.7 mmol/L (3.5-5.1) 09/13/24 10:28 Chloride 102 mmol/L (98-107) 09/13/24 10:28 Carbon Dioxide 24 mmol/L (22-29) 09/13/24 10:28 Anion Gap 17.7 (5-19) 09/13/24 10:28 BUN 18 mg/dL (8-23) 09/13/24 10:28 Creatinine 1.1 mg/dL (0.5-0.9) H 09/13/24 10:28 GFR Calculation 49.7 mL/min (90-130) L 09/13/24 10:28 Glucose 83 mg/dL (65-115) 09/13/24 10:28 Calculated Osmolality 289 mOsm/kg (285-295) 09/13/24 10:28 Lactic Acid 1.2 mmol/L (0.5-2.2) 09/13/24 10:28 Calcium 9.5 mg/dL (8.5-10.5) 09/13/24 10:28 Total Bilirubin 0.4 mg/dL (0.15-1.2) 09/13/24 10:28 AST 20 U/L (0-32) 09/13/24 10:28 ALT 24 U/L (0-33) 09/13/24 10:28 Alkaline Phosphatase 109 U/L (35-105) H 09/13/24 10:28 Total Protein 7.2 g/dL (6.6-8.7) 09/13/24 10:28 Albumin 3.9 g/dL (3.5-5.2) 09/13/24 10:28 Globulin 3.3 g/dL (1.3-4.6) 09/13/24 10:28 Lipase 43 U/L (13-60) 09/13/24 10:28 All radiology interpretation(s) finalized by discharge Discharge Plan Discharge Patient Disposition: Home Clinical Impression: Colitis Condition: Stable Prescriptions: New amoxicillin-pot clavulanate [Augmentin] 500-125 mg tablet 1 tab PO Q12H Qty: 14 0RF No Action glucosamine sulfate 1,000 mg capsule 2,000 mg PO DAILY vitamin E mixed 400 unit tablet 1 unit PO DAILY diphenhydramine HCl [Benadryl] 25 mg capsule 25 mg PO TID PRN (Reason: Allergy Symptoms) lisinopril 10 mg tablet 10 mg PO DAILY levothyroxine 75 mcg capsule 75 mcg PO DAILY cabozantinib 40 mg tablet 40 mg PO .5 days a week Tecentriq 840 mg/14 mL (60 mg/mL) solution See Rx Instructions IV .COMPLEX Rx Instructions: intravenously; Pt unsure of exact dosage acetaminophen 500 mg Tablet 500 mg PO Q6H PRN (Reason: Pain) Women's 50 Plus Multivitamin 400 mcg-500 mg calcium-20 mcg Tablet 1 tab PO DAILY Discharge Orders: Discharge ED (Routine); Ordered 09/13/24 Ordered By: Walter Dunbar Referrals: Alon Garzon MD [Primary Care Provider, Family Practice] Discharge Diet: Advance as tolerated Discharge Activity: Resume usual activity Patient Instructions: Colitis (ED), Opioid Safety, Pain Management Activity Restrictions/Additional Instructions: Follow-up with your primary care provider and GI specialist next week for recheck of your symptoms. Please take your antibiotic as prescribed. Please continue other medications as prescribed. Be sure you are drinking plenty of fluids. Return to the ER with any concerns. Print Language: Citizen Of [place] Coding Level of Care Code ED Bibliographic Services Specialist for Leanne Kaplan
[2024-09-13] MEDS: fentaNYL 50 mcg/mL INJ 2mL IVP (10:30)
[2024-09-13 10:31] VITALS: BP 144/76; PULSE 65; RESP 20; O2SAT 100
[2024-09-13] MEDS: sodium chloride 0.9% 1,000 ML 999 ML IV (10:31)
[2024-09-13 10:50] LABS: Basophils % 0.8 %; Eosinophils # 0.2 10^3/uL (0.0-0.8); Eosinophils % 5.2 %; Hematocrit 38.9 % (36-47); Lymphocytes # 0.7 10^3/uL (0.8-4.8); Lymphocytes % 18.3 %; Mean Corpuscular HGB Conc 32.4 g/dL (30-55); Mean Corpuscular Hemoglobin 34.2 pg (27-33); Mean Corpuscular Volume 105.7 fl (85-98); Mean Platelet Volume 8.7 fL (7.4-10.4); Monocytes # 0.3 10^3/uL (0.2-0.9); Monocytes % 6.8 %; Neutrophils # 2.51 10^3/uL (1.8-7.7); Neutrophils % 68.6 %; Nucleated Red Blood Cells % 0 %; Platelet Count 313 10^3/cmm (157-399); Red Blood Count 3.68 10^6/uL (3.85-5.65); Red Cell Distribution Width 13.4 % (12.1-15.1); White Blood Count 3.66 10^3/uL (3.29-11.43)
[2024-09-13 11:10] LABS: Lactic Sepsis W/Reflex 1.2 mmol/L (0.5-2.2)
[2024-09-13 11:11] LABS: Alanine Aminotransferase 24 U/L (0-33); Albumin Level 3.9 g/dL (3.5-5.2); Alkaline Phosphatase 109 U/L (35-105); Anion Gap 17.7 (5-19); Aspartate Amino Transferase 20 U/L (0-32); Blood Urea Nitrogen 18 mg/dL (8-23); Calcium 9.5 mg/dL (8.5-10.5); Carbon Dioxide 24 mmol/L (22-29); Chloride 102 mmol/L (98-107); Globulin 3.3 g/dL (1.3-4.6); Glomerular Filtration Rate 49.7 mL/min (90-130); Glucose 83 mg/dL (65-115); Lipase 43 U/L (13-60); Osmolality Calculated 289 mOsm/kg (285-295); Potassium 4.7 mmol/L (3.5-5.1); Sodium 139 mmol/L (136-145); Total Bilirubin 0.4 mg/dL (0.15-1.2); Total Protein 7.2 g/dL (6.6-8.7)
--- NOTE | 2024-09-13 11:23 | PC.NURSE ---
this nurse took over pt care at 1120.
--- NOTE | 2024-09-13 11:40 | CTR_ITS ---
PROCEDURE INFORMATION: Exam: CT Abdomen And Pelvis With Contrast Exam date and time: 09/13/2024 12:56 PM Age: 64 years old Clinical indication: Abdominal pain; Localized; Left lower quadrant (llq); Prior surgery; Surgery date: 6+ months; Surgery type: R nephrectomy; Left sided abd pain x 1 week. Patient undergoing liver cancer treatment. Hxright kidney cancer. Patient denies fever. Denies vomiting, but has nausea; Additional info: Llq pain TECHNIQUE: Imaging protocol: Computed tomography of the abdomen and pelvis with contrast. Radiation optimization: All CT scans at this facility use at least one of these dose optimization techniques: automated exposure control; mA and/or kV adjustment per patient size (includes targeted exams where dose is matched to clinical indication); or iterative reconstruction. Contrast material: OMNI 350; Contrast volume: 100 ml; Contrast route: INTRAVENOUS (IV); [id number] 05/17/2023 12:09 PM RADIATION DOSE METRICS: Total DLP (mGy-cm): 316.74 FINDINGS: Liver: Multiple hepatic masses are seen. Largest measures 4.2 x 2.8 cm. Gallbladder and biliary ducts: Normal. No calcified stones. No ductal dilation. Pancreas: Normal. No ductal dilation. Spleen: Normal. No splenomegaly. Adrenal glands: Right adrenal mass has shown interval increase in size now measuring 3.4 x 3.6 cm. Kidneys and ureters: Normal. No hydronephrosis. Stomach and bowel: Significant stool is seen at the rectal vault. Sigmoid colon diverticulosis. Significant stool material is seen in the cecal area. There is mild colonic wall thickening involving the cecum. No small bowel loop dilatation. Appendix: Appendix is normal. Intraperitoneal space: The peritoneal lesion in the left upper quadrant has shown interval increase in size now measuring 2.3 x 1.5 cm. Small right-sided abdominal ascites. Vasculature: Mild calcified atherosclerotic changes are seen throughout the abdominal aorta. There is enlarged left gonadal vein. Increased pelvic varices. Lymph nodes: Enlarged upper abdominal lymph nodes are seen. The largest measures 2.9 x 1.8 cm. Urinary bladder: Unremarkable as visualized. Reproductive: Unremarkable as visualized. Bones/joints: Mild lumbar spine degenerative changes. Soft tissues: Unremarkable. CT/CT abdomen pelvis w con* [id number] IMPRESSION: 1. Interval progression of hepatic disease, upper abdominal adenopathy and right adrenal mass. 2. There is mild colonic wall thickening involving the cecum. Colitis can not be excluded. Clinical correlation is advised. 3. Small right-sided abdominal ascites. 4. Mild calcified atherosclerotic changes are seen throughout the abdominal aorta. 5. There is enlarged left gonadal vein. Increased pelvic varices. Clinical correlation to exclude pelvic congestion syndrome is advised. 6. Significant stool is seen at the rectal vault. Clinical correlation to exclude fecal impaction is advised. 7. Sigmoid colon diverticulosis. 8. Mild lumbar spine degenerative changes. 9. Additional findings as described.
[2024-09-13] MEDS: iohexol 350 mg/mL 500 mL Btl (per mL) IV (13:01)
[2024-09-13 13:16] VITALS: BP 119/72; PULSE 61; RESP 16; O2SAT 96
[2024-09-13 14:00] VITALS: BP 138/71; PULSE 72; RESP 16; O2SAT 97
[2024-09-13 14:36] VITALS: BP 130/76; PULSE 68; O2SAT 98
== END 2024-09-13 14:36 | disposition home or self-care (01) ==
PROVIDERS: Emergency Provider Student in an Organized Health Care Education/Training Program; PCP Family Medicine
DX: K52.9 Noninfective gastroenteritis and colitis, unspecified (principal); Z87.891 Personal history of nicotine dependence; I10 Essential (primary) hypertension; Z85.048 Personal history of other malignant neoplasm of rectum, rectosigmoid junction, and anus
CPT/HCPCS: 36415; 74177; 80053; 83605; 83690; 85025; 96361; 96374; 99285; J3010; J7030

== ENCOUNTER 2024-09-25 22:12 | Emergency (ER) | payer MEDICARE, SELFPAY ==
--- OUTSIDE RECORDS SUMMARY | 2003-03-27 19:00 | XMS_ITS | Continuity of Care Document ---
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 Name Role Phone Page [facility] HIE Unavailable Unavailable Problems Problem Status Onset Date Problem Type Date of Resolution Comme nts Source Problem Condition Viral screening status (finding) Diagnosis Malignant tumor of kidney (disorder) Diagnosis Precipitous drop in hematocrit (finding) Diagnosis History of - Disorder (context-dependent category) Diagnosis Other specified disorders of kidney and ureter Active Diagnosis Encounters Location Location Details Encounter Type Encounter Number Reason For Visit Attending Provider ADM Date DC Date Status Source [facility] OUTPATIENT [id number] FU Umesh Pokala [facility] OUTPATIENT [id number] renal cancer Jaffar Hilli [facility] OUTPATIENT [id number] renal cancer Jaar Hilli [facility] DIAGNOSTIC TESTING [id number] C67.9 Jaar Hilli [facility] OUTPATIENT [id number] [facility] Francheska Nistala [facility] Cancer [facility] DIAGNOSTIC TEST [id number] HX OF RENAL CELL;CT CAP;POK A Umesh Pokala Cancel [facility] Care [id number] CMP;CT CAP;6MO F/U Umesh Pokala [facility] [id number] CMP;CT CAP;6MO F/U Umesh Pokala [facility] DIAGNOSTIC TESTING [id number] CMP Umesh Pokala Cancel [facility] Care [id number] [facility]
[2024-09-25 22:17] VITALS: BP 137/84; PULSE 82; RESP 24; TEMP 36.4; O2SAT 100; BMI 17.4
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
--- OUTSIDE RECORDS SUMMARY | 2024-09-25 22:18 | XMS_ITS | Clinical Summary ---
Author Organization [facility] Address [address] [place] [address] Care Team Providers Care Interpreter For The Deaf Name Role Phone Alon Garzon MD Primary Care Provider [phone] Allergies No known active allergies Medications glucosamine-cho ndroitin (ARTHX DS) 500-400 mg Capsule Take 1 Capsule by mouth. Active ascorbic acid, vitamin C, (VITAMIN C) 1,000 mg Tablet Take 1,000 mg by mouth daily. Active Active Problems Problem Noted Date Diagnosed Date Right renal mass 07/31/2019 Abdominal pain, acute, right upper quadrant 07/2019 Social History Tobacco Use Types Packs/Day Years Used Date Smoking Tobacco: Some Days Cigarettes Alcohol Use Standard Drinks/Week Comments Not Currently 0 (1 standard drink = 0.6 oz pur e alcohol) Comments No Sex and Gender Information Value Date Recorded Sex Assigned at Not on file Legal Sex Female 2:17 PM CDT Gender Identity Not on file Sexual Orientation Not on file Last Filed Vital Signs Vital Sign Reading Time Taken Comments Blood Pressure - - Pulse - - Temperature - - Respiratory Rate - - Oxygen Saturation - - Inhaled Oxygen Concentration - - Weight 56.2 kg (124 lb) 07/31/2019 3:43 PM CDT Height 172.7 cm (5' 8 ) 07/31/2019 3:43 PM CDT Body Mass Index 18.85 07/31/2019 3:43 PM CDT Plan of Treatment Health Maintenance Due Date Last Done Comments DTAP/TDAP/TD VACCINES (1 - Tdap) 1977 PNEUMOCOCCAL VACCINE 50+ YEARS (1 of 2 - PCV) 02/14/19 77 BREAST CANCER SCREENING 1998 COLORECTAL SCREENING 2003 Colorectal Cancer Screening 2003 FIT-DNA Q 3 years 2003 FIT/FOBT Q 1 year 2003 Flex Sig/CT Colonography Q 5 years 2003 ZOSTER VACCINE (1 of 2) 02/15/2008 OSTEOPOROSIS SCREENING 2023 INFLUENZA VACCINE (#1) 2023 RSV VACCINE (60+ or ) (1 - 1-dose 75+ series) [address] [place] [id number] POS II Care Teams Interpreter For The Deaf Relationship Specialty Start Date End Date Alon Garzon MD [address] [facility] [address] [place] [address] PCP - General Family Practice 07/24/19
--- OUTSIDE RECORDS SUMMARY | 2024-09-25 22:18 | XMS_ITS | Clinical Summary ---
Author Organization [facility] Address [address] [facility] Attn: [place] [address] Care Team Providers Care Computer Information Systems Instructor Name Role Phone Alon Garzon MD Primary Care Provider [phone] Allergies No known active allergies Medications glucosamine-cho ndroitin (ARTHX DS) 500-400 mg Capsule Take 1 Capsule by mouth. 07/31/2019 Active ascorbic acid, vitamin C, (VITAMIN C) 1,000 mg Tablet Take 1,000 mg by mouth daily. 07/31/2019 Active multivitamin (DAILY-SERVANDO) tablet Take 1 Tablet by mouth daily. Active CALCIUM CARBONATE-VITAM IN D3 ORAL Take by mouth. Active vitamin E 1,000 unit Capsule Take 1,000 Units by mouth daily. Active cyanocobalamin 1,000 mcg Tablet Take 1,000 mcg by mouth daily. Active Active Problems Problem Noted Date Diagnosed Date Right renal mass 07/31/2019 Abdominal pain, acute, right upper quadrant 07/2019 Social History Tobacco Use Types Packs/Day Years Used Date Smoking Tobacco: Some Days Cigarettes Tobacco Cessation:Ready to Q uit: Not Asked; Counseling Given: Not Answered Alcohol Use Standard Drinks/Week Comments Not Currently 0 (1 standard drink = 0.6 oz pur e alcohol) Comments No Sex and Gender Information Value Date Recorded Sex Assigned at Female 06/01/2023 8:19 PM WATER MAIN INSPECTOR Legal Sex Female 10:20 PM WATER MAIN INSPECTOR Gender Identity Female 06/01/2023 8:19 PM WATER MAIN INSPECTOR Sexual Orientation Straight 06/01/2023 8: 19 PM WATER MAIN INSPECTOR Last Filed Vital Signs Vital Sign Reading Time Taken Comments Blood Pressure 115/79 06/02/2023 10:40 AM WATER MAIN INSPECTOR Pulse 59 06/02/2023 10:40 AM WATER MAIN INSPECTOR Temperature 36.3 C (97.4 F) 06/02/2023 10:40 AM WATER MAIN INSPECTOR Respiratory Rate 16 06/02/2023 10:40 AM WATER MAIN INSPECTOR Oxygen Saturation 98% 06/02/2023 10:40 AM WATER MAIN INSPECTOR Inhaled Oxygen Concentration - - Weight 58.5 kg (129 lb) 06/02/2023 6:46 AM WATER MAIN INSPECTOR Height 172.7 cm (5' 8 ) 06/02/2023 6:46 AM WATER MAIN INSPECTOR Body Mass Index 19.61 06/02/2023 6:46 AM WATER MAIN INSPECTOR Plan of Treatment Health Maintenance Due Date [...] 02/15/2008 OSTEOPOROSIS SCREENING 2023 INFLUENZA VACCINE (#1) 2024 RSV VACCINE (60+ or ) (1 - 1-dose 75+ series) 2033 Insurance [id number] MEDIC[facility] HMO Care Teams Computer Information Systems Instructor Relationship Specialty Start Date End Date Alon Garzon MD [address] [address] PCP - General Family Practice 07/24/19
--- OUTSIDE RECORDS SUMMARY | 2024-09-25 22:18 | XMS_ITS | Data Portability ---
Author Organization [facility] Address [address] [address] Care Team Providers Care Communications Instructor Name Role Phone JEFF SORIA Primary Care Provider [phone] Assessment Encounter Date Assessment Date Assessment LastModified by Organization Details LastModified Time 08/02/2024 08/02/2024 Patient reports she has a pap scheduled for Tuesday, an ultrasound here for Tuesday and then she goes to [place] on Tuesday. Will see about getting ultrasound done today. Not available 08/02/2024 11:58:14 Plan of Treatment Reminders Order Date Submit Date Provider Last Modified By Organization Details Last Modified Time Details Appointments None recorded. Lab CBC 2024 025 RENETTA [facility], [address] [facility] [place], [address], 11:27:55 Referral None recorded. Procedures None recorded. Surgeries None recorded. Imaging US, groin - [id number] 2024 025 [facility] ([facility]), [address] [place], [address], 12:53:00 Medication Orders cefdinir 300 mg capsule 2024 025 [facility] #[id number], [address] [facility] [address], [address], 10:08:42 tramadol 50 mg tablet 2024 025 [facility] #[id number], [address], [place], [address], 10:20:24 Patient TargetsNo targets recorded. Patient Instructions Encounter Date Encounter Id Patient Instructions Last Modified By Organization Details Last Modified Time 08/02/2024 [id number] Call or return for questions or concerns. Not available 08/02/2024 11:54:27 Reason for Referral None Reported. Results Created Date Observation Date Name Description Value Unit Range Abnormal Flag Note LastModifiedBy Organization Detail LastModifiedTime 07/27/1907/26/2024 CBC WBC 4.1 x10 4.0-10 .5 Not Available [facility] [address], [place], [address], 07/26/2024 11:27:55 07/27/19 25 07/26/2024 CBC RBC 3.22 x10 3.50-5 .50 low Not Available [facility] [address], [place], [address], 07/26/2024 11:27:55 07/27/19 25 07/26/2024 CBC HGB 11.8 g/dL 12.0-1 6.0 low Not Available [facility] [address], [place], [address], 07/26/2024 11:27:55 07/27/19 25 07/26/2024 CBC HCT 35.4 % 37.0-4 7.0 low Not Available [facility] [address], [place], [address], 07/26/2024 11:27:55 07/27/19 25 07/26/2024 CBC MCV 109.8 fL 80.0-9 9.9 high Not Available [facility] [address], [place], [address], 07/26/2024 11:27:55 07/27/19 25 07/26/2024 CBC MCH 36.6 pg 27.0-3 2.0 high Not Available [facility] [address] [facility], [place], [address], 07/26/2024 11:27:55 07/27/19 25 07/26/2024 CBC MCHC 33.3 g/dL 32.0-3 6.0 Not Available [facility] [address] [facility] [address], [place], [address], 07/26/2024 11:27:55 07/27/19 25 07/26/2024 CBC RDW 13.6 % 11.5-1 4.5 Not Available [facility] [address] [address], [place], [address], 07/26/2024 11:27:55 07/27/19 25 07/26/2024 CBC plt 316.7 x10 140.0- 451.0 Not Available [facility] [address] [address], [place], [address], 07/26/2024 11:27:55 07/27/19 25 07/26/2024 CBC lymphocytes % 25.7 % 20.0-5 0.0 Not Available [facility] [address] [facility] [address], [place], [address], 07/26/2024 11:27:55 07/27/19 25 07/26/2024 CBC granulcytes % 51.6 % 30.0-7 0.0 Not Available [facility] [address] [address], [place], [address], 07/26/2024 11:27:55 07/27/19 25 07/26/2024 CBC monocytes % 8.7 % 2.0-16 .0 Not Available [facility] [address] [facility] [address], [place], [address], 07/26/2024 11:27:55 07/27/19 25 07/26/2024 CBC granulcytes# 2.1 x10 Not Krystal ilable [facility] [address] [facility] [address], [place], [address], 07/26/2024 11:27:55 07/27/19 25 07/26/2024 CBC lymphocytes # 1.1 x10 Not Available [facility] [address] [facility] [address], [place], [address], 07/26/2024 11:27:55 07/27/19 25 07/26/2024 CBC monocytes # 0.4 x10 Not Avai lable [facility] [address] [facility] [address], [place], [address], 07/26/2024 11:27:55 08/04/19 25 08/02/2024 US, groin No observ ation record ed. [facility] [address] [facility], [place], [address], 08/10/2024 09:58:14 08/30/19 25 08/09/2024 CT, chest + abdom en + pelvi s, w/ contr ast No observ ation record ed. [email or web address] Not Available 08/31 10:11:08 Result Notes None recorded. Problems Name Problem SNOMED Code Status Onset Date Resolution Date Notes Provider Name and Address Organization Details Recorded Time Clinical trial Active 2023 Cabazontin ib 40 mg daily. Atezolizum ab every 21 days. Clinical Trial treating Liver Cancer. JAKE guthrie [place] Francia [facility] LLucioLLucioCLucio 11:29:56 Malignant tumor of kidney 049237696 Active 2023 FREDO Cooper [facility] L.L.CLucio 08/28/202 4 11:30:30 Malignant neoplasm of liver 37751233 Active 2023 JAKE BANDA [facility], L.L.CLucio 4 11:30:39 Essential hypertensi on 03207371 Active 2023 JAKE SOLO [facility] L.L.CLucio 4 11:30:48 Renal cell carcinoma 460295827 Active 2023 Right Kidney 2020 JAKE SOLO [facility], L.L.CLucio 4 00:23:21 Antineopla stic chemoimmun otherapy Active 2023 JAKE guthrie [facility], LLucioL.CLucio 4 00:20:55 Seen in oncology clinic 864732760 Active 2023 [facility] fax: JAKE BANDA [facility], L.L.CLucio 4 00:41:03 Inguinal lymphadeno azar 669871295 Active 2024 Tam Phan MD [address] [place], [address], [facility], Solo.L.CLucio 5 10:16:54 Hyperthyro idism 72300293 Active 2024 JAKE guthrie [facility], L.L.CLucio 5 18:25:59 Problem Notes None recorded. Procedures Surgical History Date Name Laterality Status Provider Name and Address Organization Details Recorded Time 5 CT of chest, abdomen and pelvis completed JAKE BANDA [facility], L.L.CLucio 08/15/2024 18:35:47 4 Cerumen Removal-Irrigat ion completed GABO PECK [address] [place], [address], [facility], L.L.CLucio 01/21/2024 11:57:08 4 [address] scan completed [facility], Yasmeen 12/06/2023 00:30:[address] of chest, abdomen and pelvis completed [facility], Yasmeen 12/06/2023 00:37:54 4 biopsy of liver completed [facility], Yasmeen 12/06/2023 00:26:53 0 screening for malignant neoplasm of cervix completed [facility], Yasmeen 11/23/2023 11:32:[address] [facility], Yasmeen 11/23/2023 11:32:[address] 11:16:36 Imaging Results None recorded. Procedure Notes None recorded. Medical Equipment None Reported. Allergies No known drug allergies Medications Name Sig Start Date Stop Date Status Note LastModified by Organization Details LastModified Time doxycycli ne hyclate 100 mg capsule Take 1 capsule twice a day by oral route for 7 days. 07/05 completed Not Available Not Available Not Available benzonata te 200 mg capsule TAKE 1 CAPSULE BY MOUTH 3 TIMES A DAY NEEDED FOR COUGH 07/26 completed Not Available Not Available Not Available hydrocodo ne 5 mg-acetam inophen 325 mg tablet TAKE 1 TABLET BY MOUTH EVERY 8 HOURS NEEDED FOR PAIN active Not Available Not Available No t Available prednison e 20 mg tablet 2 po daily x5d 12/09 completed Not Available Not Available Not Available tramadol 50 mg tablet TAKE 1 TABLET BY MOUTH EVERY 6 HOURS active Not Available Not Available No t Available triamcino lone acetonide 0.1 % topical cream APPLY TOPICALL Y 2 (TWO) TIMES A DAY. APPLY TO AFFECTED RASH ON HANDS active Not Available Not Available No t Available levothyro xine 25 mcg tablet TAKE 1 TABLET BY MOUTH EVERY DAY active Not Available Not Available No t Available levothyro xine 75 mcg tablet TAKE 1 TABLET BY MOUTH EVERY DAY active Not Available Not Available No t Available benzonata te 100 mg capsule TAKE 1 CAPSULE BY MOUTH THREE TIMES A DAY NEEDED 01/20 completed Not Available Not Available Not Available levothyro xine 50 mcg tablet TAKE 1 TABLET (50 MCG) BY MOUTH DAILY 07/26 completed Not Available Not Available Not Available clotrimaz ole-betam ethasone 1 %-0.05 % topical cream APPLY TO THE AFFECTED AND SURROUND ING AREAS OF SKIN BY TOPICAL ROUTE 2 TIMES PER DAY IN THE MORNING AND EVENING FOR 2 WEEKS 12/01 completed Not Available Not Available Not Available lisinopri l 10 mg tablet TAKE ONE TABLET BY MOUTH DAILY. active Not Available Not Available No t Available monteluka st 10 mg tablet TAKE 1 TABLET BY MOUTH EVERY DAY active Not Available Not Available No t Available ondansetr on 4 mg disintegr ating tablet DISSOLVE 1 TABLET IN MOUTH EVERY 6 HOURS NEEDED FOR NAUSEA AND VOMITING active Not Available Not Available No t Available cefdinir 300 mg capsule TAKE 1 CAPSULE BY MOUTH EVERY 12 HOURS 09/13 completed Not Available Not Available Not Available fluticaso ne propionat e 50 mcg/actua tion nasal spray,eh pension INSTILL 2 SPRAYS IN EACH NOSTRIL DAILY active Not Available Not Available No t Available phenyleph rine 10 mg tablet Take 1 tablet twice a day by oral route for 5 days. 01/20 completed Not Available Not Available Not Available Vitamin C daily 11/22 completed 0; Recorded 09/09/19 21 10:50AM by Emma Plata, Office Visit; Not Available Not Available Not Available Benadryl Allergy as needed 11/22 completed 0; Recorded 09/09/19 21 10:50AM by Emma Plata, Office Visit; Not Available Not Available Not Available Vitamin D 11/22 completed daily; 0; Recorded 09/09/19 21 10:50AM by Emma Plata, Office Visit; Not Available Not Available Not Available Glucosami ne 1500 Complex daily 11/22 completed 0; Recorded 09/09/19 21 10:50AM by Emma Plata, Office Visit; Not Available Not Available Not Available atezolizu mab 1,200 mg/20 mL (60 mg/mL) intraveno us solution infusion every 21 days active Not Available Not Available No t Available Paxlovid 300 mg (150 mg x 2)-100 mg tablets in a dose pack TAKE DIRECTED ON THE PACKAGE DIRECTIO NS 11/22 completed Not Available Not Available Not Available Vitals Date Recorded Body height Body mass index (BMI) Body weight Oxygen saturation Oxygen saturation in Arterial blood by Pulse oximetry Heart rate Respiratory rate Body temperature Systolic blood pressure Diastolic blood pressure Provider Name and Address Organization Details Last Updated DateTime 5 172.72 cm 18.5 kg/m2 95976.2 7 g 98 % 98 % 88 /min 16 /min 98.2 [degF] 140 mm[Hg] 80 mm[Hg] Jackie Ramirez [facility] 5 08:48:43 Date Recorded Body height Body mass index (BMI) Body weight Oxygen saturation Oxygen saturation in Arterial blood by Pulse oximetry Heart rate Respiratory rate Body temperature Systolic blood pressure Diastolic blood pressure Provider Name and Address Organization Details Last Updated DateTime 5 172.72 cm 18.2 kg/m2 65355.0 8 g 97 % 97 % 80 /min 16 /min 98.6 [degF] 144 mm[Hg] 82 mm[Hg] Jackie Ramirez [facility] 5 10:01:56 Date Recorded Body height Body mass index (BMI) Body weight Oxygen saturation Oxygen saturation in Arterial blood by Pulse oximetry Heart rate Respiratory rate Systolic blood pressure Diastolic blood pressure Provider Name and Address Organization Details Last Updated DateTime 5 172.72 cm 18.1 kg/m2 24348.4 9 g 97 % 97 % 76 /min 18 /min 104 mm[Hg] 68 mm[Hg] JAKE BANDA [facility] 5 11:29:18 Date Recorded Body height Body mass index (BMI) Body weight Body temperature Oxygen saturation Oxygen saturation in Arterial blood by Pulse oximetry Heart rate Systolic blood pressure Diastolic blood pressure Provider Name and Address Organization Details Last Updated DateTime 5 172.72 cm 17.7 kg/m2 26813.1 1 g 97.8 [degF] 99 % 99 % 79 /min 148 mm[Hg] 100 mm[Hg] Meghann Houts [facility] 10:13:56 Social History Question Answer Notes LastModified by Organizat ion Details LastModified Time Tobacco Smoking Status Never Smoker JAKE BANDA [place], [facility] 11/23/2023 11:15:59 What Is Your Level Of Caffeine Consumption? Occasional [email or web address] Information not available 05/01/2024 What Was The Date Of Your Most Recent Tobacco Screening? 09/13/2024 [email or web address] Information not available 09/13/2024 Sex: Unknown Functional Status Question Answer Note LastModified by Organizat ion Details LastModified Time Do you use any illicit or recreational drugs? No [email or web address] Information not available 11/23/2023 Do you or have you ever used any other forms of tobacco or nicotine? No Information not available 11/23/2023 What is your level of alcohol consumption? None [email or web address] Information not available 11/23/2023 Are you able to walk? YESWOREST [email or web address] Information not available 05/01/2024 Are you able to care for yourself? Yes [email or web address] Information n ot available 11/23/2023 Do you or have you ever used any nicotine-free cigarettes, vape, or chewing tobacco? No Information not available 11/23/2023 Mental Status None recorded. Family History Relationship Description Onset Age of this Age Resolved Age Notes LastModified by Organization Details LastModified Time Father Myocardial infarction age 58 Not available 10/27 11:15:01 Medical History Condition Response Coronary Artery Disease N Other N Gout N Kidney Stones N Blood Diseases N Hyperthyroidism N Breast Cancer N Blood Transfusion N Depression N Hypothyroidism N Lung Disease N COPD N Developmental or Behavioral Disorders N Defects or Inherited Disease N Breast Problem N Difficulty Swallowing N Anesthesia Complications N Anxiety Disorder N Meniere's disease N Muscle, Joint, or Bone Problems N Vision or Eye Problems N Arthritis N Infertility N Polyps N Cancer N Stroke N Varicosities N Endometriosis N Bladder or Kidney Problems N High Cholesterol N Liver Disease N Fibromyalgia N Headaches N Kidney Disease N Allergies/Hayfever N Heart Problems N Ear or Hearing Problems N Hospitalizations N Thyroid Problems N GI Problems N ADD/ADHD N Skin Problems N Eating Disorder N Anemia N Constipation N Mental Illness N Ovarian Cancer N Diabetes N Bedwetting N Seizures/Epilepsy N Tuberculosis N Eczema N Diverticulitis N Abuse/Domestic Violence N Asthma N Reflux/GERD N Hepatitis N Heart Disease N Pulmonary Embolism N Pre-Eclampsia N Hypertension N Chronic Ear Infections N Osteoporosis N Chicken Pox N Autism Spectrum Disorder (ASD) N Thrombophilias N Gynecological HistoryNo gynecological history recorded. Obstetrics History GPAL:G 0 P 0 0 0 0 Immunizations Vaccine Type Date Status Note Provider Nam e and Address Organization Details Recorded Time Influenza, MDCK, quadrivalent, PF 3 completed JEFF SORIA[address], [address], [facility] 11/23/2023 11:28:21 COVID-19, mRNA, LNP-S, PF, 100 mcg/0.5mL dose or 50 mcg/0.25mL dose 1 completed JEFF SORIA[address], [address], [facility] 11/23/2023 11:28:21 COVID-19, mRNA, LNP-S, PF, 100 mcg/0.5mL dose or 50 mcg/0.25mL dose 1 completed JEFF SORIA [address], [address], [facility] 11/23/2023 11:28:21 COVID-19, mRNA, LNP-S, PF, 100 mcg/0.5mL dose or 50 mcg/0.25mL dose 1 completed JEFF SORIA [address], [address], [facility] 11/23/2023 11:28:21 COVID-19, mRNA, LNP-S, bivalent, PF, 50 mcg/0.5 mL or 25mcg/0.25 mL dose 2 completed JEFF SORIA, [address], [address], [facility] 11/23/2023 11:28:21 COVID-19, mRNA, LNP-S, PF, 50 mcg/0.5 mL 3 completed JEFF SORIA, [address], [address], [facility] 11/23/2023 11:28:21 Influenza, split virus, quadrivalent, PF 2 completed JEFF SORIA, [address], [address], [facility] 11/23/2023 11:28:21 Influenza, adjuvanted, trivalent, PF 4 completed JEFF SORIA, [address], [address], [facility] 05/01/2024 13:48:50 Pneumococcal conjugate PCV20, polysaccharide [id number] conjugate, adjuvant, PF 4 completed JEFF SORIA, [address], [address], [facility] 05/01/2024 13:48:51 COVID-19, mRNA, LNP-S, PF, 50 mcg/0.5 mL 4 completed JEFF SORIA [address], [address], [facility] 05/01/2024 13:48:51 Past Encounters Encounter ID Performer Location Encounter Start Date Encounter Closed Date Diagnosis/Indication Diagnosis SNOMED-CT Code Diagnosis ICD10 Code Diagnosis Note [id number] GABRIEL SCHAFER [facility] ([facility]) [address] [place] [address] 01/18/2023 09:45:30 01/18/2023 13:31:26 Cough 07080854 R05.9 COVID-19 616533547 U07.1 Discussed risks and benefits of Paxlovid. Patient verbalized that she understand s this medication is still under emergency use authorizat ion. Will start Paxlovid today. Patient is not on daily medication s. Can take tylenol as needed for pain. Encouraged to push fluids and quarantine until feeling better. If severe SOB or chest pain occurs, should go to ED. Patient verbalizes understand ing. 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 Mckinley at [facility]. 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 Tinea corporis 10989076 B35.4 Essential hypertension 15181766 I10 Continue lisinopril . [id number] HERBERTH SMILEY PA-C [facility] ([facility]) [address] [facility] [place] [id number] 12/02/2023 09:19:11 12/02/2023 10:50:17 Cough 68029814 R05.9 Allergic rhinitis 856570 04 J30.9 [id number] ZOLTAN STUBBS [facility] ([facility]) [address] [place] [phone] 12/10/2023 12:25:03 12/10/2023 12:47:03 Acute upper respiratory infection 35444260 J06.9 discussed to continue otc meds for symptom management . Continue monitoring bp daily. if your bp is elevating then stop the phenylephr ine. [id number] GABO PECK [facility] ([facility]) [address] [place] [place] [address] 01/21/2024 10:34:16 01/21/2024 12:03:56 Impacted cerumen 84301945 H61.22 Patient advised to use OTC Debrox weekly for maintenanc e. [id number] JEFF SORIA [facility] ([facility]) [address] [place] [place] [phone] 05/01/2024 12:38:07 05/01/2024 14:46:45 Essential hypertension 83430393 I10 Continue lisinopril . 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 Chronic ob structive pulmonary disease 45170228 J43.9 Emphysema Chronic ki dney disease stage 3A 504289528 N18.31 Labs done in [place] every 3 weeks. Adult heal th examination 682559660 Z00.01 Follows with oncology. [id number] KAR ROUSE [facility] ([facility]) [address] [facility] [place] [phone] 05/11/2024 09:02:16 05/11/2024 09:42:44 Acute bronchitis 70246836 J20.9 Increase po fluids. Rest. Return to clinic with any new or worsening symptoms. [id number] ZOLTAN STUBBS [facility] ([facility]) [address] [facility] [place] [phone] 05/14/2024 08:38:23 05/14/2024 10:22:45 Influenza-like illness 26438030 B34.9 Discussed to alternate tylenol/mo ramakrishna for fever control. Rest and push oral fluids.If you develop sob, wheezing, no urine output over 24 hours, or feel symptoms are worsening then please return for re-evaluat ion.May return to work/schoo l when you have no fever for 24 hours without the use of tylenol/mo ramakrishna. [id number] Tam Phan MD [facility] ([facility]) [address] [place] [place] [phone] 07/26/2024 09:48:03 07/27/2024 10:39:54 Inguinal lymphadenopathy 816393853 R59.0 Likely reactive lymph nodes given today's examinatio n. Will start the patient on antibiotic s and obtain lab work. Will order ultrasound for further evaluation and pain medication was given. Follow-up with PCP after ultrasound [id number] GABO BARRON [facility] ([facility]) [address] [facility] [place] [phone] 08/02/2024 11:10:03 08/02/2024 12:01:37 Inguinal lymphadenopathy 922400135 R59.0 She has completed antibiotic s. Lump has improved but is not resolved. She has an appt for pap testing on Tuesday. She denies any discharge vaginally. Renal cell carcinoma 702 075314 C64.1 Follows with oncology. [id number] Tam Phan MD [facility] ([facility]) [address] [place] [phone] 08/02/2024 11:54:49 08/03/2024 13:58:17 [id number] GBAO PECK [facility] ([facility]) [address] [facility] [place] [id number] 09/13/2024 10:03:13 09/13/2024 13:18:33 Acute abdominal pain 354593372 R10.9 sent to ER for further evaluation . Report called to [facility] staff by Meghann FERNANDO Health Concerns Section Related Observation LastModified by Organization Detai ls LastModified Time None Recorded Concern Status LastModified by Organization Details LastModified Time None Recorded Advance Directives Directive None Recorded Payers Insurance Date Sequence Insurance Name Policy Number Policy [place] Covered Member ID [place] Member ID Guarantor Name 09/13/2024 1 [id number]ANT[place] - [place]PO) [id number] Jovita A Majors [id number] Jovita A Majors 01/21/2024 1 [employer] (EPO[place] [id number] Jovita A Majors [id number] Jovita A Majors 07/26/2024 ABLE PAY Jovita A Majors [id number] Jovita A Majors Notes Date Note Type Note Provider Name and Address Organization Details Recorded Time 05/14/2024 text/html walk in patientpatient is here today to follow up from her visit on 05/11/24, patient is still taking her benzonatate and doxycyline and is not better. No fevers. Continues to cough. Spouse is here with her today and tested positive for flu A. ZOLTAN STUBBS, [address], [address], [facility], LDavid. 05/14/2024 10:15:22 07/26/2024 text/html walk in patientpatient is here today for pain and swelling in her right side of groin that started 2-3 weeks ago. Patient states that swelling started first then the pain started 2 nights ago. Tam Phan MD [address] [place] [address], [address], [facility], Josselyn. 07/28/2024 20:54:02 08/02/2024 text/html Musculoskeletal PainReported bypatient.Quality:dul l Severity:no driving impairment Duration:present <1 month Timing:constant walk in patientpatient is here today for pain and swelling in her right side of groin that started 2-3 weeks ago. Patient states that swelling started first then the pain started 2 nights ago. JEFF SORIA, [address], [address], [facility], LLucioLHunter. 08/02/2024 11:59:14 09/13/2024 text/html walk inx1 week epigastric pain radiation to RUQ and RLQ gradually increasing in intensity. Increase pain with deep inhalation. Hx of liver cancer and is undergoing treatment at [facility]. KAR ROUSE, [address], [id number], [facility], Yasmeen 09/13/2024 12:30:05 OBGyn Episode No OBEpisode recorded.
[2024-09-25] MEDS: ondansetron 2 mg/ML SDV 2 mL 4 MG IVP (22:46)
[2024-09-25 22:48] VITALS: RESP 26; O2SAT 100
[2024-09-25] MEDS: morphine 4 mg/mL SDV 1 mL IVP (22:48)
--- NOTE | 2024-09-25 23:10 | CTR_ITS ---
PROCEDURE INFORMATION: Exam: CT Abdomen And Pelvis With Contrast Exam date and time: 09/26/2024 12:10 AM Age: 64 years old Clinical indication: Abdominal pain; Generalized; Prior surgery; Surgery date: 6+ months; Surgery type: Nephrectomy for CA; Additional info: Appy protocol TECHNIQUE: Imaging protocol: Computed tomography of the abdomen and pelvis with contrast. Radiation optimization: All CT scans at this facility use at least one of these dose optimization techniques: automated exposure control; mA and/or kV adjustment per patient size (includes targeted exams where dose is matched to clinical indication); or iterative reconstruction. Contrast material: OMNI 350; Contrast volume: 60 ml; Contrast route: INTRAVENOUS (IV); COMPARISON: CT abdomen pelvis w con* [id number] 09/13/2024 12:56 PM RADIATION DOSE METRICS: Total DLP (mGy-cm): 278 FINDINGS: Liver: Numerous complex cystic structures scattered throughout the liver measuring up to 4.0 cm, previously 4.5 cm, findings are concerning for metastatic disease. Gallbladder and biliary ducts: Normal. No calcified stones. No ductal dilation. Pancreas: Normal. No ductal dilation. Spleen: Normal. No splenomegaly. Adrenal glands: Normal. No mass. Kidneys and ureters: The right kidney is absent. Stomach and bowel: Unremarkable. No obstruction. No mucosal thickening. Appendix: The appendix images normally. Intraperitoneal space: Unremarkable. No free air. No significant fluid collection. Vasculature: Unremarkable. No abdominal aortic aneurysm. Lymph nodes: Unremarkable. No enlarged lymph nodes. Urinary bladder: Unremarkable as visualized. Reproductive: Unremarkable as visualized. Bones/joints: Unremarkable. No acute fracture. Soft tissues: Unremarkable. CT/CT abdomen pelvis w con* [id number] IMPRESSION: 1. Numerous complex cystic structures scattered throughout the liver measuring up to 4.0 cm, previously 4.5 cm, findings are concerning for metastatic disease. No new hepatic lesions. 2. No bowel obstruction or inflammatory process associated with the bowel. 3. No free air in the abdomen or pelvis. Small amount of free fluid in the abdomen. 4. No evidence of appendicitis.
[2024-09-25 23:20] LABS: Hematocrit 35.4 % (36-47); Hemoglobin 11.30 g/dL (11.27-16.99); Mean Corpuscular HGB Conc 31.9 g/dL (30-55); Mean Corpuscular Hemoglobin 33.5 pg (27-33); Mean Corpuscular Volume 105.0 fl (85-98); Nucleated Red Blood Cells % 0 %; Platelet Count 311 10^3/cmm (157-399); Red Blood Count 3.37 10^6/uL (3.85-5.65); White Blood Count 3.99 10^3/uL (3.29-11.43)
--- NOTE | 2024-09-25 23:26 | W.ED.FEMALGU ---
HPI - Female Genitourinary General: Chief complaint: Urogenital-Female Stated complaint: Pain in Vaginal Area Time Seen by Provider: 09/25/24 22:14 History of Present Illness: Patient is a 64-year-old female with history of liver cancer, last treatment with Kcentra on 09/20 - 09/21 at [facility] in [place], history of left nephrectomy, presents to the ED with severe onset of right groin pain. This started at 7 PM tonight. She had worsening pain since that time. No eating since that time. Nausea, however no vomiting. Associated symptoms: Reports abdominal pain; Deny headache(s) or nausea Related Data Home Medications ?Medication ?Instructions ?Recorded ?Confirmed acetaminophen 500 mg tablet 500 mg PO Q6H PRN Pain 05/23/20 09/13/24 glucosamine sulfate 1,000 mg 2,000 mg PO DAILY 04/06/22 09/13/24 capsule vitamin E mixed 400 unit tablet 1 unit PO DAILY 04/06/22 09/13/24 diphenhydramine HCl 25 mg capsule 25 mg PO TID PRN Allergy Symptoms 10/05/22 09/13/24 (Benadryl) [id number]-[id number] ac 400 1 tab PO DAILY 04/29/23 09/13/24 mcg-calcium carb 500 mg-vit K1 20 mcg tablet (Women's 50 Plus Multivitamin) atezolizumab 840 mg/14 mL (60 See Rx Instructions IV .COMPLEX 08/06/24 09/13/24 mg/mL) intravenous solution (Tecentriq) cabozantinib 40 mg tablet 40 mg PO .5 days a week 08/06/24 09/13/24 levothyroxine 75 mcg capsule 75 mcg PO DAILY 08/06/24 09/13/24 lisinopril 10 mg tablet 10 mg PO DAILY 08/06/24 09/13/24 Previous Rx's ?Medication ?Instructions ?Recorded amoxicillin 500 mg-potassium 1 tab PO Q12H #14 tabs 09/13/24 clavulanate 125 mg tablet (Augmentin) lactulose 10 gram/15 mL oral 30 g (45 mL) PO TID PRN 09/26/24 solution constipation #473 mL Allergies Allergy/AdvReac Type Severity Reaction Status Date / Time No Known Allergies Allergy Verified 08/06/24 09:38 Review of Systems General: Reports: 10 or more systems reviewed and unremarkable except in HPI and below Const: Denies: fever(s) or chills Eyes: Denies: change in vision or blurry vision ENMT: Denies: throat pain or dry mouth Card: Denies: chest pain or palpitations GI: Reports: abdominal pain; Denies: nausea, vomiting, dysphagia, diarrhea or belching : Denies: flank pain or difficulty voiding Musc: Denies: neck pain or back pain Skin/Breast: Denies: rash or pruritus Neuro: Denies: headache(s) or numbness in extremities Psych: Denies: anxiety or depression PFSH ED PFSH: Medical History Pancreatic mass Hypertension Renal cell carcinoma Surgical History S/p nephrectomy (08/23/19) Right laparoscopic radical nephrectomy with pericaval lymph node dissection and with liver biopsy Family History (Updated 08/06/24 @ 09:40 by Miranda Clifton CMA) Grandfather Stroke Mother Stroke Denies family history of Colon cancer Ovarian cancer Diabetes Heart disease Hyperlipidemia Breast cancer Hypertension Uterine cancer Thyroid disease Social History Smoking and tobacco/nicotine status: never used tobacco/nicotine Quit status (tobacco/nicotine): has quit using Year quit tobacco: 07/2019 Alcohol intake: current Alcohol intake frequency: holidays/special occasions only Substance/Drug Use: never Physical Exam Const: COMMON NORMALS: no acute distress, average body habitus and patient oriented x3 HENMT: COMMON NORMALS: normocephalic and atraumatic HEAD & SCALP: normocephalic and atraumatic Chest: COMMONS NORMALS: normal inspection of the chest, normal palpation of entire chest wall, normal inspection of the breasts and normal palpation of the breasts Breast/axilla inspection: Yes normal inspection of the breasts BREAST/AXILLA PALPATION: Yes normal palpation of the breasts Resp: COMMON NORMALS: normal respiratory effort and No retractions Cardio: COMMON NORMALS: regular rate and regular rhythm RATE: regular rate RHYTHM: regular rhythm GI: COMMON NORMALS: Normal to inspection, nondistended, normoactive bowel sounds present PALPATION: Yes Tenderness to palpation present (GI) Details: RLQ and Yes Guarding due to palpation present (GI) in the RLQ : COMMON NORMALS: Yes no CVA tenderness BLADDER/KIDNEY EXAM: Yes no CVA tenderness Back/Pelvis: COMMON NORMALS: no CVA tenderness Extremity: COMMON NORMALS: normal to inspection, full ROM and capillary refill normal Neuro: COMMON NORMALS: patient oriented x3 Course Vital Signs: Vital signs: Vital Signs Temperature 97.5 F L 09/25/24 22:17 Pulse Rate 82 09/25/24 22:17 Respiratory Rate 26 H 09/25/24 22:48 Blood Pressure 137/84 09/25/24 22:17 Pulse Oximetry 100 09/25/24 22:48 Oxygen Delivery Me thod Room Air 09/25/24 22:17 MDM - Female Medical Decision Making Patient is a six 4-year-old female under treatment for liver cancer that presents with severe right lower quadrant pain. On exam, she had significant tenderness. CT was negative for acute appendicitis. There was no lymphadenopathy in that area. Her multiple metastatic sites were noted on her liver. Laboratory data was within range. Urinalysis was benign. She did have stool on CT abundance, and therefore we will place her on lactulose and see if her symptoms improve. Will defer to her primary oncologist. Lab Data 09/25/24 22:41 09/25/24 23:34 Radiology Impressions Abdomen/Pelvis CT 09/25/24 23:10 IMPRESSION: 1. Numerous complex cystic structures scattered throughout the liver measuring up to 4.0 cm, previously 4.5 cm, findings are concerning for metastatic disease. No new hepatic lesions. 2. No bowel obstruction or inflammatory process associated with the bowel. 3. No free air in the abdomen or pelvis. Small amount of free fluid in the abdomen. 4. No evidence of appendicitis. Laboratory Results WBC 3.99 10^3/uL (3.29-11.43) 09/25/24 22:41 RBC 3.37 10^6/uL (3.85-5.65) L 09/25/24 22:41 Hgb 11.30 g/dL (11.27-16.99) 09/25/24 22:41 Hct 35.4 % (36-47) L 09/25/24 22:41 MCV 105.0 fl (85-98) H 09/25/24 22:41 MCH 33.5 pg (27-33) H 09/25/24 22:41 MCHC 31.9 g/dL (30-55) 09/25/24 22:41 RDW 13.7 % (12.1-15.1) 09/25/24 22:41 Plt Count 311 10^3/cmm (157-399) 09/25/24 22:41 MPV 9.0 fL (7.4-10.4) 09/25/24 22:41 Neut % (Auto) 68.5 % 09/25/24 22:41 Lymph % (Auto) 22.6 % 09/25/24 22:41 Cherry % (Auto) 5.8 % 09/25/24 22: Eos % (Auto) 1.3 % 09/25/24 22:41 Baso % (Auto) 1.5 % 09/25/24 22:41 Neut # (Auto) 2.74 10^3/uL (1.8-7.7) 09/25/24 22:41 Lymph # (Auto) 0.9 10^3/uL (0.8-4.8) 09/25/24 22:41 Cherry # (Auto) 0.2 10^3/uL (0.2-0.9) 09/25/24 22:41 Eos # (Auto) 0.1 10^3/uL (0.0-0.8) 09/25/24 22:41 Baso # (Auto) 0.1 10^3/uL (0.0-0.1) 09/25/24 22:41 Nucleated RBC % (auto) 0 % 09/25/24 22:41 Nucleated RBCs # 0.0 /100WBC 09/25/24 22:41 Sodium 134 mmol/L (136-145) L 09/25/24 23:34 Potassium 4.2 mmol/L (3.5-5.1) 09/25/24 23:34 Chloride 95 mmol/L (98-107) L 09/25/24 23:34 Carbon Dioxide 21 mmol/L (22-29) L 09/25/24 23:34 Anion Gap 22.2 (5-19) H 09/25/24 23:34 BUN 17 mg/dL (8-23) 09/25/24 23:34 Creatinine 1.2 mg/dL (0.5-0.9) H 09/25/24 23:34 GFR Calculation 44.9 mL/min (90-130) L 09/25/24 23:34 Glucose 92 mg/dL (65-115) 09/25/24 23:34 Calculated Osmolality 279 mOsm/kg (285-295) L 09/25/24 23:34 Lactic Acid 1.0 mmol/L (0.5-2.2) 09/25/24 22:41 Calcium 9.5 mg/dL (8.5-10.5) 09/25/24 23:34 Total Bilirubin 0.5 mg/dL (0.15-1.2) 09/25/24 23:34 AST 24 U/L (0-32) 09/25/24 23:34 ALT 28 U/L (0-33) 09/25/24 23:34 Alkaline Phosphatase 114 U/L (35-105) H 09/25/24 23:34 C-Reactive Protein 50.8 mg/L (0.0-4.9) H 09/25/24 23:34 Total Protein 8.1 g/dL (6.6-8.7) 09/25/24 23:34 Albumin 4.1 g/dL (3.5-5.2) 09/25/24 23:34 Globulin 4.0 g/dL (1.3-4.6) 09/25/24 23:34 Urine Color Yellow (Yellow) 09/26/24 00:04 Urine Appearance Clear (CLEAR) 09/26/24 00:04 Urine pH 8.0 (5-7) A 09/26/24 00:04 Ur Specific [place] 1.013 (1.005-1.030) 09/26/24 00:04 Urine Protein Negative (Negative) 09/26/24 00:04 Urine Glucose (UA) Negative (Normal) 09/26/24 00:04 Urine Ketones 1+ (Negative) H 09/26/24 00:04 Urine Blood Negative (Negative) 09/26/24 00:04 Urine Nitrate Negative (Negative) 09/26/24 00:04 Urine Bilirubin Negative (Negative) 09/26/24 00:04 Urine Urobilinogen 0.2 mg/dL (Negative) 09/26/24 00:04 Ur Leukocyte Esterase Negative (Negative) 09/26/24 00:04 Urine RBC 0-2 /hpf (0-2) 09/26/24 00:04 Urine WBC 0-5 /hpf (0-5) 09/26/24 00:04 Ur Squamous Epith Cells 0-5 /hpf (0-5) 09/26/24 00:04 Amorphous Sediment Not Reportable 09/26/24 00:04 Urine Bacteria None seen /hpf (NONE) 09/26/24 00:04 Hyaline Casts 0-4 /lpf H 09/26/24 00:04 All radiology interpretation(s) finalized by discharge ED provider radiology interpretation(s): no acute, obstipation/fos on my view Discharge Plan Discharge Patient Disposition: Home Clinical Impression: Obstipation Abdominal pain Qualifiers: Abdominal location: right lower quadrant Qualified Code(s): R10.31 - Right lower quadrant pain Condition: Stable Prescriptions: New lactulose 10 gram/15 mL solution 30 g PO TID PRN (Reason: constipation) Qty: 473 0RF No Action glucosamine sulfate 1,000 mg capsule 2,000 mg PO DAILY vitamin E mixed 400 unit tablet 1 unit PO DAILY diphenhydramine HCl [Benadryl] 25 mg capsule 25 mg PO TID PRN (Reason: Allergy Symptoms) lisinopril 10 mg tablet 10 mg PO DAILY levothyroxine 75 mcg capsule 75 mcg PO DAILY cabozantinib 40 mg tablet 40 mg PO .5 days a week Tecentriq 840 mg/14 mL (60 mg/mL) solution See Rx Instructions IV .COMPLEX Rx Instructions: intravenously; Pt unsure of exact dosage acetaminophen 500 mg Tablet 500 mg PO Q6H PRN (Reason: Pain) Women's 50 Plus Multivitamin 400 mcg-500 mg calcium-20 mcg Tablet 1 tab PO DAILY amoxicillin-pot clavulanate [Augmentin] 500-125 mg tablet 1 tab PO Q12H Qty: 14 0RF Discharge Orders: Discharge ED (Routine); Ordered 09/26/24 Ordered By: Maxine Cancino Referrals: Alon Garzon MD [Primary Care Provider, Family Practice] Discharge Diet: Clear Liquid Discharge Activity: Resume usual activity Patient Instructions: Abdominal Pain (ED), Opioid Safety, Pain Management, Patient Portal & Delicia Instructions Activity Restrictions/Additional Instructions: Clear liquid diet until BM starts. May advance to full liquid diet if abdominal pain is gone and tolerating. Take medication as prescribed. Follow-up with your doctor regarding today's visit. Return to ED for worsening symptoms, nausea, or vomiting. Print Language: Nauruan Coding Level of Care Code ED Threader Operator for Leanne Kaplan
[2024-09-25 23:30] VITALS: BP 139/75; PULSE 63; O2SAT 100
[2024-09-25 23:31] LABS: Lactic Sepsis W/Reflex 1.0 mmol/L (0.5-2.2)
[2024-09-26] LABS: Alanine Aminotransferase 28 U/L (0-33); Albumin Level 4.1 g/dL (3.5-5.2); Alkaline Phosphatase 114 U/L (35-105); Anion Gap 22.2 (5-19); Aspartate Amino Transferase 24 U/L (0-32); Blood Urea Nitrogen 17 mg/dL (8-23); Calcium 9.5 mg/dL (8.5-10.5); Carbon Dioxide 21 mmol/L (22-29); Chloride 95 mmol/L (98-107); Creatinine Clr Calc Pharmacy 37.9751; Globulin 4.0 g/dL (1.3-4.6); Glucose 92 mg/dL (65-115); Osmolality Calculated 279 mOsm/kg (285-295); Potassium 4.2 mmol/L (3.5-5.1); Sodium 134 mmol/L (136-145); Total Protein 8.1 g/dL (6.6-8.7)
[2024-09-26 00:11] LABS: Glucose Urine UA Negative (Normal); Nitrate Urine Negative (Negative); Specific Gravity, Urine 1.013 (1.005-1.030)
[2024-09-26] MEDS: iohexol 350 mg/mL 500 mL Btl (per mL) IV (00:13)
[2024-09-26 00:15] LABS: Add Urine Microscopic? YES
[2024-09-26 00:30] VITALS: BP 129/70; PULSE 77; O2SAT 99
[2024-09-26 01:12] VITALS: BP 112/68; PULSE 78; O2SAT 99
[2024-09-26] MEDS: lactulose oral liq 20 gm/30 mL UDC 30 GM PO (01:22)
[2024-09-26 01:29] VITALS: BP 114/72; PULSE 80; O2SAT 99
== END 2024-09-26 01:30 | disposition home or self-care (01) ==
PROVIDERS: Emergency Provider Physician Assistant; PCP Family Medicine
DX: R10.31 Right lower quadrant pain (principal); K59.00 Constipation, unspecified; Z87.891 Personal history of nicotine dependence; I10 Essential (primary) hypertension
CPT/HCPCS: 74177; 80053; 81001; 83605; 85025; 86140; 96374; 96375; 99285; J2270; J2405; J7030; J9999

== ENCOUNTER 2024-10-15 09:13 | Oncology outpatient (recurring) (ONCR) | payer MEDICARE, SELFPAY ==
[2024-10-15 09:31] LABS: Hematocrit 32.9 % (36-47); Hemoglobin 10.40 g/dL (11.27-16.99); Mean Corpuscular HGB Conc 31.6 g/dL (30-55); Mean Corpuscular Hemoglobin 32.3 pg (27-33); Mean Corpuscular Volume 102.2 fl (85-98); Nucleated Red Blood Cells % 0 %; Platelet Count 311 10^3/cmm (157-399); Red Blood Count 3.22 10^6/uL (3.85-5.65); White Blood Count 4.39 10^3/uL (3.29-11.43)
[2024-10-15 09:47] LABS: Alanine Aminotransferase 15 U/L (0-33); Albumin Level 3.5 g/dL (3.5-5.2); Alkaline Phosphatase 93 U/L (35-105); Anion Gap 17.5 (5-19); Aspartate Amino Transferase 13 U/L (0-32); Blood Urea Nitrogen 15 mg/dL (8-23); Calcium 8.9 mg/dL (8.5-10.5); Carbon Dioxide 25 mmol/L (22-29); Chloride 101 mmol/L (98-107); Globulin 3.2 g/dL (1.3-4.6); Glucose 100 mg/dL (65-115); Osmolality Calculated 289 mOsm/kg (285-295); Potassium 4.5 mmol/L (3.5-5.1); Sodium 139 mmol/L (136-145); Total Protein 6.7 g/dL (6.6-8.7)
== END 2024-10-25 23:59 | disposition home or self-care (01) ==
PROVIDERS: PCP Family Medicine; Visit Provider Internal Medicine Medical Oncology
DX: C64.1 Malignant neoplasm of right kidney, except renal pelvis (principal); C22.0 Liver cell carcinoma; E03.9 Hypothyroidism, unspecified; K52.9 Noninfective gastroenteritis and colitis, unspecified; Z79.899 Other long term (current) drug therapy
CPT/HCPCS: 36415; 80053; 85025; 99215

== ENCOUNTER 2024-11-05 12:27 | Oncology outpatient (recurring) (ONCR) | payer MEDICARE, SELFPAY ==
[2024-11-05 12:56] LABS: Hematocrit 34.5 % (36-47); Hemoglobin 10.70 g/dL (11.27-16.99); Mean Corpuscular HGB Conc 31.0 g/dL (30-55); Mean Corpuscular Hemoglobin 30.8 pg (27-33); Mean Corpuscular Volume 99.4 fl (85-98); Nucleated Red Blood Cells % 0 %; Platelet Count 354 10^3/cmm (157-399); Red Blood Count 3.47 10^6/uL (3.85-5.65); White Blood Count 5.96 10^3/uL (3.29-11.43)
[2024-11-05 13:26] LABS: Free T4 Free Thyroxine 1.88 ng/dL (0.82-1.77); Thyroid Stimulating Hormone 2.61 uIU/mL (0.27-4.20); Tumor Marker Alpha Fetoprotein 1.8 ng/mL (0-8.3)
[2024-11-05 13:40] LABS: Alanine Aminotransferase 27 U/L (0-33); Albumin Level 3.8 g/dL (3.5-5.2); Alkaline Phosphatase 97 U/L (35-105); Anion Gap 14.8 (5-19); Aspartate Amino Transferase 18 U/L (0-32); Blood Urea Nitrogen 19 mg/dL (8-23); Calcium 9.1 mg/dL (8.5-10.5); Carbon Dioxide 27 mmol/L (22-29); Chloride 96 mmol/L (98-107); Creatinine Clr Calc Pharmacy 49.7531; Globulin 3.3 g/dL (1.3-4.6); Glucose 91 mg/dL (65-115); Osmolality Calculated 280 mOsm/kg (285-295); Potassium 3.8 mmol/L (3.5-5.1); Sodium 134 mmol/L (136-145); Total Protein 7.1 g/dL (6.6-8.7)
== END 2024-11-25 23:59 | disposition home or self-care (01) ==
PROVIDERS: PCP Family Medicine; Visit Provider Internal Medicine Medical Oncology
DX: C64.1 Malignant neoplasm of right kidney, except renal pelvis (principal); C22.0 Liver cell carcinoma; Z79.899 Other long term (current) drug therapy; Z90.5 Acquired absence of kidney; Z87.891 Personal history of nicotine dependence
CPT/HCPCS: 36415; 80053; 82105; 84439; 84443; 84481; 85025; 99214

== ENCOUNTER 2024-12-17 07:45 | Oncology outpatient (recurring) (ONCR) | payer MEDICARE, SELFPAY ==
[2024-12-03 13:41] LABS: Hematocrit 34.0 % (36-47); Hemoglobin 10.50 g/dL (11.27-16.99); Mean Corpuscular HGB Conc 30.9 g/dL (30-55); Mean Corpuscular Hemoglobin 29.3 pg (27-33); Mean Corpuscular Volume 95.0 fl (85-98); Nucleated Red Blood Cells % 0 %; Platelet Count 372 10^3/cmm (157-399); Red Blood Count 3.58 10^6/uL (3.85-5.65); White Blood Count 4.57 10^3/uL (3.29-11.43)
[2024-12-03 14:13] LABS: Alanine Aminotransferase 25 U/L (0-33); Albumin Level 3.9 g/dL (3.5-5.2); Alkaline Phosphatase 113 U/L (35-105); Anion Gap 14.3 (5-19); Aspartate Amino Transferase 17 U/L (0-32); Blood Urea Nitrogen 18 mg/dL (8-23); Calcium 9.4 mg/dL (8.5-10.5); Carbon Dioxide 27 mmol/L (22-29); Chloride 101 mmol/L (98-107); Globulin 3.7 g/dL (1.3-4.6); Glucose 103 mg/dL (65-115); Osmolality Calculated 288 mOsm/kg (285-295); Potassium 4.3 mmol/L (3.5-5.1); Sodium 138 mmol/L (136-145); Thyroid Stimulating Hormone 1.37 uIU/mL (0.27-4.20); Total Protein 7.6 g/dL (6.6-8.7)
--- NOTE | 2024-12-17 07:45 | CTR_ITS ---
PROCEDURE INFORMATION: Exam: CT Chest With Contrast; Diagnostic Exam date and time: 12/17/2024 7:44 AM Age: 64 years old Clinical indication: Condition or disease; Cancer; Kidney, right; Other: Renal cell carcinoma of right kidney; Prior surgery; Surgery date: 6+ months; Surgery type: RT nephrectomy; HX of leukemia also TECHNIQUE: Imaging protocol: Diagnostic computed tomography of the chest with contrast. Radiation optimization: All CT scans at this facility use at least one of these dose optimization techniques: automated exposure control; mA and/or kV adjustment per patient size (includes targeted exams where dose is matched to clinical indication); or iterative reconstruction. Contrast material: OMNI 350; Contrast volume: 80 ml; Contrast route: INTRAVENOUS (IV); COMPARISON: [email or web address] [id number] 05/17/2023 12:09 PM RADIATION DOSE METRICS: Total DLP (mGy-cm): 414.94 FINDINGS: Thyroid: Atrophic thyroid without discrete nodule. Lungs: 3 mm nodule medially in the right lower lobe on series 4, image 33 is likely unchanged in the interval. 3 mm left upper lobe nodule on image 18 also appears unchanged. No definite new or enlarging pulmonary nodules. No consolidation. No masses. Pleural spaces: Unremarkable. No pneumothorax. No pleural effusion. Heart: Unremarkable. No cardiomegaly. No pericardial effusion. Coronary arteries: Moderate coronary artery calcifications. Lymph nodes: Unremarkable. No enlarged lymph nodes. Vasculature: Scattered atherosclerotic aortic calcifications. No aortic aneurysm. Bones/joints: Unremarkable. No acute fracture. Soft tissues: Unremarkable. PROCEDURE INFORMATION: Exam: CT Abdomen And Pelvis With Contrast Exam date and time: 12/17/2024 7:44 AM Age: 64 years old Clinical indication: Condition or disease; Cancer; Kidney, right; Other: Renal cell carcinoma of right kidney; Prior surgery; Surgery date: 6+ months; Surgery type: RT nephrectomy; HX of leukemia also TECHNIQUE: Imaging protocol: Computed tomography of the abdomen and pelvis with contrast. Radiation optimization: All CT scans at this facility use at least one of these dose optimization techniques: automated exposure control; mA and/or kV adjustment per patient size (includes targeted exams where dose is matched to clinical indication); or iterative reconstruction. Contrast material: OMNI 350; Contrast volume: 80 ml; Contrast route: INTRAVENOUS (IV); COMPARISON: CT abdomen pelvis w con* [id number] 09/26/2024 12:10 AM RADIATION DOSE METRICS: Total DLP (mGy-cm): 414.94 FINDINGS: Liver: Multiple complex hepatic masses are again seen in the right and left hepatic lobes within overall increased in size compared with prior. For example, a lesion in the posterior segment right hepatic lobe now measures up to 4.7 cm, previously 4.4 cm. An adjacent 3.7 cm mass previously measured 3.2 cm. A 1.4 cm lesion in the inferior right hepatic lobe previously measuring 1.2 cm. Gallbladder and biliary ducts: Normal. No calcified stones. No ductal dilation. Pancreas: Similar mild diffuse pancreatic ductal prominence. Spleen: Normal. No splenomegaly. Adrenal glands: Normal. No mass. Kidneys and ureters: Status post right nephrectomy. No left hydronephrosis. Similar subcentimeter left renal hypodensities. Stomach and bowel: Moderate stool scattered throughout the colon and rectum. Sigmoid diverticulosis without evidence of acute diverticulitis. No evidence of bowel obstruction. Appendix: The appendix appears borderline dilated, though there are no associated inflammatory changes. Intraperitoneal space: Small volume free pelvic fluid appears new from prior. Ill-defined soft tissue nodularity along the omentum/peritoneal surface, most pronounced in the left upper quadrant as well as bilateral lower quadrants. This appears to have increased in the interval. Increasing size of the soft tissue implant in the left upper quadrant lateral to the left kidney which now measures up to 0.7 cm, previously 0.4 cm. Vasculature: Moderate diffuse atherosclerotic aortoiliac calcifications. No abdominal aortic aneurysm. Asymmetric prominence of the left gonadal venous similar to prior. Lymph nodes: Unremarkable. No enlarged lymph nodes. Urinary bladder: Unremarkable as visualized. Reproductive: Prominent periuterine vasculature bilaterally. Bones/joints: Degenerative changes of the spine.. No acute fracture. Soft tissues: No acute findings. CT/CT chest abdpel w/*[id number] IMPRESSION: 1. No acute findings. 2. Sub 4 mm pulmonary nodules appear unchanged since 04/2023. No new or enlarging pulmonary nodules. Recommend continued follow-up per oncology protocol. IMPRESSION: 1. Interval increase in size of hepatic metastases. 2. Increasing nodularity along the omentum/peritoneal surface concerning for peritoneal carcinomatosis with omental caking. This also includes increasing size of a subcentimeter soft tissue implant in the left hemiabdomen. 3. Small volume fluid in the pelvis is new from prior. Developing malignant ascites is possible. 4. Prominent periuterine vasculature can be seen with pelvic congestion syndrome. 5. Moderate colorectal stool. Correlate for constipation. 6. Sigmoid diverticulosis without diverticulitis. COMMENTS: Consistent with the [employer]'s Incidental Findings Committee white paper (J Am Kathryn Radiol 2018): Any incidental renal lesion less than 1 cm or classified as too small to characterize, or any incidental cystic renal lesion characterized as simple-appearing, is likely benign. No follow-up imaging is recommended for these lesions per consensus recommendations based on imaging criteria.
[2024-12-17] MEDS: iohexol 350 mg/mL 500 mL Btl (per mL) IV (07:46)
== END 2024-12-25 23:59 | disposition home or self-care (01) ==
LOC: RAD 12-18 → ONCMED 12-18 11:14
PROVIDERS: PCP Family Medicine; Visit Provider Internal Medicine Medical Oncology
DX: Z53.9 Procedure and treatment not carried out, unspecified reason; C22.0 Liver cell carcinoma; C64.1 Malignant neoplasm of right kidney, except renal pelvis; K57.30 Diverticulosis of large intestine without perforation or abscess without bleeding
CPT/HCPCS: 36415; 71260; 74177; 80053; 84443; 85025; 99214

== ENCOUNTER 2024-12-31 14:19 | Oncology outpatient (recurring) (ONCR) | payer MEDICARE, SELFPAY ==
[2024-12-31 14:36] LABS: Hematocrit 31.4 % (36-47); Hemoglobin 9.90 g/dL (11.27-16.99); Mean Corpuscular HGB Conc 31.5 g/dL (30-55); Mean Corpuscular Hemoglobin 28.8 pg (27-33); Mean Corpuscular Volume 91.3 fl (85-98); Nucleated Red Blood Cells % 0 %; Platelet Count 362 10^3/cmm (157-399); Red Blood Count 3.44 10^6/uL (3.85-5.65); White Blood Count 4.88 10^3/uL (3.29-11.43)
[2024-12-31 15:02] LABS: Alanine Aminotransferase 23 U/L (0-33); Albumin Level 3.8 g/dL (3.5-5.2); Alkaline Phosphatase 103 U/L (35-105); Anion Gap 15.3 (5-19); Aspartate Amino Transferase 15 U/L (0-32); Blood Urea Nitrogen 16 mg/dL (8-23); Calcium 9.3 mg/dL (8.5-10.5); Carbon Dioxide 28 mmol/L (22-29); Chloride 97 mmol/L (98-107); Creatinine Clr Calc Pharmacy 44.1095; Globulin 3.6 g/dL (1.3-4.6); Glucose 132 mg/dL (65-115); Osmolality Calculated 285 mOsm/kg (285-295); Potassium 4.3 mmol/L (3.5-5.1); Sodium 136 mmol/L (136-145); Total Protein 7.4 g/dL (6.6-8.7)
== END 2025-01-25 23:59 | disposition home or self-care (01) ==
LOC: ONCMED 14:19
PROVIDERS: PCP Family Medicine; Visit Provider Internal Medicine Medical Oncology
DX: C22.0 Liver cell carcinoma (principal); Z79.899 Other long term (current) drug therapy; Z90.5 Acquired absence of kidney; Z87.891 Personal history of nicotine dependence; Z85.528 Personal history of other malignant neoplasm of kidney
CPT/HCPCS: 36415; 80053; 85025; 99214

== ENCOUNTER → 2025-02-01 11:16 | Outpatient (BNVA) | payer MEDICARE, SELFPAY | PROVIDERS: PCP Family Medicine; Visit Provider Student in an Organized Health Care Education/Training Program | DX: L57.8 Other skin changes due to chronic exposure to nonionizing radiation (principal); D18.01 Hemangioma of skin and subcutaneous tissue; L81.4 Other melanin hyperpigmentation; D48.5 Neoplasm of uncertain behavior of skin; C22.1 Intrahepatic bile duct carcinoma; Z95.828 Presence of other vascular implants and grafts; R03.0 Elevated blood-pressure reading, without diagnosis of hypertension | CPT/HCPCS: 11102; 99203; 99204 ==

== ENCOUNTER 2025-02-06 06:42 | Day surgery (SDC) | payer MEDICARE, SELFPAY ==
[2025-02-06] VITALS (7 sets, daily range): BP systolic 113–137; BP diastolic 70–77; PULSE 66–83; RESP 15–18; TEMP 36.1–36.6; O2SAT 95–100; BMI 16.7
--- NOTE | 2025-02-06 06:49 | SC_ITS ---
WS: [id number] Exam: C-arm FL for CVA [id number] Date/Time of Exam: 02/06/2025 6:49 AM Reason For Exam: Port-A-Cath insertion DLP: Single AP C arm image of the upper RIGHT chest is submitted. The image depicts a RIGHT subclavian port coursing down the SVC however the tip is out of the [id number]. This image was obtained for intraoperative visualization purposes.
--- NOTE | 2025-02-06 07:12 | W.PM.OPSUD ---
Surgery/Procedure H&P Update DATE OF PROCEDURE: February 06, 2025 DATE H&P PERFORMED: 02/01/25 H&P UPDATE INFORMATION: I have reviewed H&P completed within last 30 days, I have examined patient prior to procedure, No changes to prior documentation and Risks and benefits of the procedure reviewed PLANNED PROCEDURE: Operation Date: 02/06/25 08:30 Proposed Procedures p Port a Cath Insertion [id number] C22.1(Not Applicable) - Ramon Bhatia MD
--- NOTE | 2025-02-06 07:35 | P.ANESASSM_ITS ---
Pre-Anesthetic Assessment Height/Weight: Height 1.73 m Weight 49.895 kg Temp Pulse Resp BP Pulse Ox O2 Del Method 97.5 F L 83 18 137/77 100 Room Air 02/06/25 07:00 02/06/25 07:00 02/06/25 07:00 02/06/25 07:00 02/06/25 07:00 02/06/25 07:00 Operation Date: 02/06/25 08:30 Proposed Procedures p Port a Cath Insertion [id number] C22.1(Not Applicable) - Ramon Bhatia MD Familial anesthetic complications: None Was Beta Casi taken within 24 hours: N/A Was Clonidine taken within 24 hours: N/A Last intake: Intake Last Liquid Date 02/05/25 Last Liquid Time 19: Last Solid Date 02/05/25 Last Solid Time 19:00 Social No alcohol and No tobacco Exam alert, oriented x 3, clear to auscultation bilaterally and regular rate & rhythm Airway Mallampati: Class II Hepatic adenocarcinoma - denies any history of ascites Anesthetic Plan ASA status: 4 Anesthesia: MAC Risk of > 500 ml blood loss (7ml/kg in children): No Medications/Allergies Home Medications ?Medication ?Instructions ?Recorded ?Confirmed ?Last Taken ?Type glucosamine sulfate 1,000 mg 2,000 mg PO DAILY 3 02/06/25 02/05/25 History capsule stqytrjv-zwh-lnrjw ac 400 1 tab PO DAILY 04/29/2301/2602/05/25 History mcg-calcium carb 500 mg-vit K1 20 mcg tablet (Women's 50 Plus Multivitamin) levothyroxine 100 mcg tablet 100 mcg PO DAILY 10/15/24 02/06/25 02/05/25 History sennosides 8.6 mg tablet (Natural 8.6 mg PO DAILY PRN Constipation 12/03/24 02/06/25 02/05/25 History Senna Laxative) gabapentin 300 mg capsule 300 mg PO TID 01/29/2502/0602/05/25 History Allergies Allergy/AdvReac Type Severity Reaction Status Date / Time No Known Allergies Allergy Verified 02/05/25 12:10 [facility] Anesthesia Medical History Pancreatic mass Hypertension Renal cell carcinoma Surgical History (Updated 02/01/25 @ 11:20 by ORALIA Eli) S/p nephrectomy (08/23/19) Right laparoscopic radical nephrectomy with pericaval lymph node dissection and with liver biopsy Family History Grandfather Stroke Mother Stroke Denies family history of Colon cancer Ovarian cancer Diabetes Heart disease Hyperlipidemia Breast cancer Hypertension Uterine cancer Thyroid disease Social History Smoking and tobacco/nicotine status: never used tobacco/nicotine Quit status (tobacco/nicotine): has quit using Year quit tobacco: 07/2019 Alcohol intake: current Alcohol intake frequency: holidays/special occasions only Substance/Drug Use: never
[2025-02-06] MEDS: heparin, porcine 1,000 unit/mL INJ 10 mL 6000 UNIT IRRIGATION (08:38)
[2025-02-06] MEDS: BUPivacaine 0.25% INJ 10 mL 2 ML INJECTION (08:40)
[2025-02-06] MEDS: lidocaine-epi 1% 20 mL INJ INJECTION (08:40)
--- NOTE | 2025-02-06 08:47 | PM.OP ---
Operative Report Date of procedure: February 06, 2025 Pre-op diagnosis: Cholangiocarcinoma Post-op diagnosis: same Post-op findings: Tip of catheter at atriocaval junction confirmed with intraoperative fluoroscopy Procedure done: Port-A-Cath insertion Implants: Port-A-Cath Specimens removed/disposition: N/A Pathology: N/A Surgeon: Ramon Bhatia MD Plant And Instrument Engineer: N/A Anesthesia: MAC Estimated blood loss (mL): 5 Complications: N/A Findings: Tip of catheter at atriocaval junction confirmed with intraoperative fluoroscopy Brief History: 64-year-old female who presents for Port-A-Cath insertion for chemotherapy administration. Discussed risk and benefits and patient agrees to proceed with Port-A-Cath insertion. Procedure: Patient was brought into the operating room and a timeout was carried out. Procedure was done under MAC. Patient was placed supine with the arms tucked and in Trendelenburg. Patient was prepped and draped in the usual sterile fashion. Using ultrasound guidance the right internal jugular vein was accessed. A guidewire was then placed down to the atriocaval junction using fluoroscopy. The finder needle was removed and the guidewire was secured. I then turned my attention to creating a pocket over the right chest. Make sure to locally infiltrated using plain lidocaine and bupivacaine at the site of the pocket and throughout the tunnel site. I confirmed adequate hemostasis at the pocket. I then proceeded to place the port that was already preassembled and flushed with heparinized saline and the chest pocket. I tunneled the catheter from the chest to the neck at the site where I accessed the internal jugular vein. I measured and adjusted the length of the catheter so it would reach the atrial caval junction. At this point, I used a dilator to dilate the tract into the internal jugular vein using fluoroscopy. I removed the guidewire and proceeded to thread the central venous catheter through the introducer. In the process, I removed the sheath as a completely pushed the catheter into the internal jugular vein. I then confirmed adequate placement of the catheter by performing intraoperative interpretation of fluoroscopy. The tip of the catheter was confirmed to be placed in the atriocaval junction. There were no kinks noted throughout the trajectory of the catheter. I then proceeded to test the port and was satisfied with its functionality. I proceeded to flushed the catheter without any issues. I then hep-locked the port. Skin was closed using deep dermal 3-0 Vicryl, subcuticular 4-0 Monocryl, and Dermabond. Patient was then transferred to PACU without any complications.
--- NOTE | 2025-02-06 09:35 | ANE.PACU2 ---
Inpatient post-anesthesia follow up: Airway intact: Yes Vital signs: Temperature 98 F Pulse Rate 66 Respiratory Rate 17 Blood Pressure 127/73 Pulse Oximetry 99 Oxygen Delivery Me thod Room Air Oxygen Flow Rate Fraction of Inspir ed Oxygen Hydration adequate: Yes Nausea and vomiting: No Pain level: 1 Mental status: Baseline
== END 2025-02-06 09:38 | disposition home or self-care (01) ==
PROVIDERS: PCP Nurse Practitioner Family; Visit Provider Student in an Organized Health Care Education/Training Program
PROC: (CPT 36561; principal; 2025-02-06 08:20)
DX: C24.0 Malignant neoplasm of extrahepatic bile duct (principal); I10 Essential (primary) hypertension; Z85.528 Personal history of other malignant neoplasm of kidney
CPT/HCPCS: 36561; 76000; 77001; C1788; J1644; J2250; J2704; J3010; J3490; J7030; J9999

== ENCOUNTER → 2025-02-18 10:37 | Outpatient (BNVA) | payer MEDICARE, SELFPAY | PROVIDERS: PCP Nurse Practitioner Family; Visit Provider Student in an Organized Health Care Education/Training Program | DX: R03.0 Elevated blood-pressure reading, without diagnosis of hypertension (principal) | CPT/HCPCS: 99213 ==

== ENCOUNTER 2025-02-19 13:30 | Oncology outpatient (recurring) (ONCR) | payer MEDICARE, SELFPAY ==
[2025-02-19 13:56] LABS: Hematocrit 28.2 % (36-47); Hemoglobin 8.60 g/dL (11.27-16.99); Mean Corpuscular HGB Conc 30.5 g/dL (30-55); Mean Corpuscular Hemoglobin 28.2 pg (27-33); Mean Corpuscular Volume 92.5 fl (85-98); Nucleated Red Blood Cells % 0 %; Platelet Count 441 10^3/cmm (157-399); Red Blood Count 3.05 10^6/uL (3.85-5.65); White Blood Count 6.27 10^3/uL (3.29-11.43)
[2025-02-19 14:24] LABS: Alanine Aminotransferase 8 U/L (0-33); Albumin Level 3.8 g/dL (3.5-5.2); Alkaline Phosphatase 99 U/L (35-105); Anion Gap 17.4 (5-19); Aspartate Amino Transferase 11 U/L (0-32); Blood Urea Nitrogen 25 mg/dL (8-23); Calcium 9.5 mg/dL (8.5-10.5); Cancer Antigen 19 9 11.96 U/mL (0-35); Carbon Dioxide 24 mmol/L (22-29); Chloride 103 mmol/L (98-107); Globulin 3.9 g/dL (1.3-4.6); Glucose 160 mg/dL (65-115); Osmolality Calculated 298 mOsm/kg (285-295); Potassium 4.4 mmol/L (3.5-5.1); Sodium 140 mmol/L (136-145); Thyroid Stimulating Hormone 2.67 uIU/mL (0.27-4.20); Total Protein 7.7 g/dL (6.6-8.7)
[2025-02-19 14:53] LABS: Free T4 Free Thyroxine 1.41 ng/dL (0.82-1.77)
== END 2025-02-24 23:59 | disposition home or self-care (01) ==
PROVIDERS: Nurse Practitioner; PCP Family Medicine; Visit Provider Internal Medicine Medical Oncology
DX: Z53.9 Procedure and treatment not carried out, unspecified reason; C22.1 Intrahepatic bile duct carcinoma; Z95.828 Presence of other vascular implants and grafts; D64.9 Anemia, unspecified
CPT/HCPCS: 36591; 80053; 83615; 84439; 84443; 85025; 86301; 99214; 99215

== ENCOUNTER 2025-03-26 07:30 | Oncology outpatient (recurring) (ONCR) | payer MEDICARE, SELFPAY ==
[2025-02-25 08:43] LABS: Hematocrit 28.3 % (36-47); Hemoglobin 8.30 g/dL (11.27-16.99); Mean Corpuscular HGB Conc 29.3 g/dL (30-55); Mean Corpuscular Hemoglobin 27.0 pg (27-33); Mean Corpuscular Volume 92.2 fl (85-98); Nucleated Red Blood Cells % 0 %; Platelet Count 464 10^3/cmm (157-399); Red Blood Count 3.07 10^6/uL (3.85-5.65); White Blood Count 6.38 10^3/uL (3.29-11.43)
[2025-02-25 09:05] LABS: Ferritin 262 ng/mL (15-150); Iron 13 ug/dL (37-145); Total Iron Binding Capacity 181 mcg/dl; Unsaturated Iron Binding 168 ug/dL (112-347)
[2025-02-25] MEDS: magnesium sulfate premix 2 GM/50 ML PIGGYBACK IV (09:28)
[2025-02-25] MEDS: sodium chlor 0.9% + KCl 20 mEq 20 MEQ/1,000 ML BAG 500 MEQ IV (09:29)
[2025-02-25 09:33] VITALS: BP 123/68; PULSE 76; RESP 17; TEMP 36.8; O2SAT 99
[2025-02-25] MEDS: diphenhydrAMINE 50 mg/mL SDV 1mL 25 MG IVP (10:56)
[2025-02-25] MEDS: FUROsemide 10 mg/mL SDV 2mL 20 MG IVP ×2 (13:06→13:20)
[2025-02-25 14:24] VITALS: BP 113/68; PULSE 70; RESP 17; TEMP 36.4; O2SAT 99
[2025-02-26] VITALS (11 sets, daily range): BP systolic 108–133; BP diastolic 58–80; PULSE 65–79; RESP 16–17; TEMP 36.3–37.1; O2SAT 97–100
[2025-03-04 08:07] LABS: Hematocrit 35.9 % (36-47); Hemoglobin 10.90 g/dL (11.27-16.99); Mean Corpuscular HGB Conc 30.4 g/dL (30-55); Mean Corpuscular Hemoglobin 27.3 pg (27-33); Mean Corpuscular Volume 90.0 fl (85-98); Nucleated Red Blood Cells % 0 %; Platelet Count 252 10^3/cmm (157-399); Red Blood Count 3.99 10^6/uL (3.85-5.65); White Blood Count 4.20 10^3/uL (3.29-11.43)
[2025-03-04 08:32] VITALS: BP 129/56; PULSE 64; RESP 16; TEMP 36.7; O2SAT 99
[2025-03-04 08:38] LABS: Alanine Aminotransferase 19 U/L (0-33); Albumin Level 3.6 g/dL (3.5-5.2); Alkaline Phosphatase 227 U/L (35-105); Anion Gap 17.5 (5-19); Aspartate Amino Transferase 13 U/L (0-32); Blood Urea Nitrogen 23 mg/dL (8-23); Calcium 9.2 mg/dL (8.5-10.5); Carbon Dioxide 25 mmol/L (22-29); Chloride 100 mmol/L (98-107); Globulin 3.9 g/dL (1.3-4.6); Glucose 106 mg/dL (65-115); Osmolality Calculated 290 mOsm/kg (285-295); Potassium 4.5 mmol/L (3.5-5.1); Sodium 138 mmol/L (136-145); Total Protein 7.5 g/dL (6.6-8.7)
[2025-03-04] MEDS: magnesium sulfate premix 2 GM/50 ML PIGGYBACK IV (09:05)
[2025-03-04] MEDS: sodium chlor 0.9% + KCl 20 mEq 20 MEQ/1,000 ML BAG 500 MEQ IV (09:05)
[2025-03-04] MEDS: diphenhydrAMINE 50 mg/mL SDV 1mL 25 MG IVP (10:17)
[2025-03-04] MEDS: FUROsemide 10 mg/mL SDV 2mL 20 MG IVP (12:37)
[2025-03-04 13:49] VITALS: BP 132/84; PULSE 75; TEMP 36.3; O2SAT 98
[2025-03-11 09:31] LABS: Hematocrit 34.1 % (36-47); Hemoglobin 10.50 g/dL (11.27-16.99); Mean Corpuscular HGB Conc 30.8 g/dL (30-55); Mean Corpuscular Hemoglobin 27.2 pg (27-33); Mean Corpuscular Volume 88.3 fl (85-98); Nucleated Red Blood Cells % 0 %; Platelet Count 118 10^3/cmm (157-399); Red Blood Count 3.86 10^6/uL (3.85-5.65); White Blood Count 2.90 10^3/uL (3.29-11.43)
[2025-03-11 09:51] LABS: Alanine Aminotransferase 22 U/L (0-33); Albumin Level 3.6 g/dL (3.5-5.2); Alkaline Phosphatase 213 U/L (35-105); Anion Gap 13.4 (5-19); Aspartate Amino Transferase 16 U/L (0-32); Blood Urea Nitrogen 15 mg/dL (8-23); Calcium 9.2 mg/dL (8.5-10.5); Carbon Dioxide 26 mmol/L (22-29); Chloride 98 mmol/L (98-107); Globulin 3.5 g/dL (1.3-4.6); Glucose 94 mg/dL (65-115); Osmolality Calculated 277 mOsm/kg (285-295); Potassium 4.4 mmol/L (3.5-5.1); Slide Review Slide Review Perform; Sodium 133 mmol/L (136-145); Total Protein 7.1 g/dL (6.6-8.7)
[2025-03-18 08:39] LABS: Hematocrit 33.0 % (36-47); Hemoglobin 10.10 g/dL (11.27-16.99); Mean Corpuscular HGB Conc 30.6 g/dL (30-55); Mean Corpuscular Hemoglobin 27.7 pg (27-33); Mean Corpuscular Volume 90.7 fl (85-98); Nucleated Red Blood Cells % 0 %; Platelet Count 562 10^3/cmm (157-399); Red Blood Count 3.64 10^6/uL (3.85-5.65); White Blood Count 4.94 10^3/uL (3.29-11.43)
[2025-03-18 09:11] VITALS: BP 115/57; PULSE 61; RESP 16; TEMP 36.6; O2SAT 99
[2025-03-18 09:17] LABS: Alanine Aminotransferase 16 U/L (0-33); Albumin Level 3.6 g/dL (3.5-5.2); Alkaline Phosphatase 149 U/L (35-105); Anion Gap 16.0 (5-19); Aspartate Amino Transferase 13 U/L (0-32); Blood Urea Nitrogen 21 mg/dL (8-23); Calcium 9.0 mg/dL (8.5-10.5); Carbon Dioxide 25 mmol/L (22-29); Chloride 101 mmol/L (98-107); Ferritin 271 ng/mL (15-150); Globulin 3.2 g/dL (1.3-4.6); Glucose 134 mg/dL (65-115); Iron 36 ug/dL (37-145); Osmolality Calculated 291 mOsm/kg (285-295); Potassium 4.0 mmol/L (3.5-5.1); Sodium 138 mmol/L (136-145); Thyroid Stimulating Hormone 3.02 uIU/mL (0.27-4.20); Total Iron Binding Capacity 188 mcg/dl; Total Protein 6.8 g/dL (6.6-8.7); Unsaturated Iron Binding 152 ug/dL (112-347)
[2025-03-18] MEDS: sodium chlor 0.9% + KCl 20 mEq 20 MEQ/1,000 ML BAG 500 MEQ IV (09:42)
[2025-03-18] MEDS: magnesium sulfate premix 2 GM/50 ML PIGGYBACK IV (09:42)
[2025-03-18] MEDS: diphenhydrAMINE 50 mg/mL SDV 1mL 25 MG IVP (10:54)
[2025-03-18] MEDS: FUROsemide 10 mg/mL SDV 2mL 20 MG IVP (13:18)
[2025-03-18 14:22] VITALS: BP 115/72; PULSE 66; RESP 16; TEMP 36.8; O2SAT 99
[2025-03-26 08:08] LABS: Hematocrit 32.0 % (36-47); Hemoglobin 9.90 g/dL (11.27-16.99); Mean Corpuscular HGB Conc 30.9 g/dL (30-55); Mean Corpuscular Hemoglobin 27.9 pg (27-33); Mean Corpuscular Volume 90.1 fl (85-98); Nucleated Red Blood Cells % 0 %; Platelet Count 339 10^3/cmm (157-399); Red Blood Count 3.55 10^6/uL (3.85-5.65); White Blood Count 4.27 10^3/uL (3.29-11.43)
[2025-03-26 08:19] LABS: Alanine Aminotransferase 13 U/L (0-33); Albumin Level 3.7 g/dL (3.5-5.2); Alkaline Phosphatase 149 U/L (35-105); Anion Gap 17.7 (5-19); Aspartate Amino Transferase 15 U/L (0-32); Blood Urea Nitrogen 20 mg/dL (8-23); Calcium 9.3 mg/dL (8.5-10.5); Carbon Dioxide 24 mmol/L (22-29); Chloride 98 mmol/L (98-107); Globulin 3.4 g/dL (1.3-4.6); Glucose 101 mg/dL (65-115); Osmolality Calculated 283 mOsm/kg (285-295); Potassium 4.7 mmol/L (3.5-5.1); Sodium 135 mmol/L (136-145); Total Protein 7.1 g/dL (6.6-8.7)
[2025-03-26] MEDS: magnesium sulfate premix 2 GM/50 ML PIGGYBACK IV (09:36)
[2025-03-26] MEDS: sodium chlor 0.9% + KCl 20 mEq 20 MEQ/1,000 ML BAG 500 MEQ IV (09:37)
[2025-03-26] MEDS: diphenhydrAMINE 50 mg/mL SDV 1mL 25 MG IVP (11:35)
[2025-03-26] MEDS: gemcitabine 1,500 MG in sodium chloride 0.9% (100 ml) 100 ML 278.9 MG IV (13:29)
[2025-03-26] MEDS: FUROsemide 10 mg/mL SDV 2mL 20 MG IVP (14:18)
[2025-03-26 15:32] VITALS: BP 124/77; PULSE 67; RESP 16; TEMP 36.1; O2SAT 100
== END 2025-03-27 23:59 | disposition home or self-care (01) ==
PROVIDERS: Internal Medicine Medical Oncology; Nurse Practitioner; PCP Nurse Practitioner Family; Visit Provider Nurse Practitioner Family
DX: Z51.11 Encounter for antineoplastic chemotherapy (principal); C22.1 Intrahepatic bile duct carcinoma; R14.0 Abdominal distension (gaseous); R10.11 Right upper quadrant pain; R63.4 Abnormal weight loss; Z68.1 Body mass index [BMI] 19.9 or less, adult; Z95.828 Presence of other vascular implants and grafts; Z79.899 Other long term (current) drug therapy; Z90.5 Acquired absence of kidney; Z79.630 Long term (current) use of alkylating agent; Z79.52 Long term (current) use of systemic steroids; Z53.9 Procedure and treatment not carried out, unspecified reason
CPT/HCPCS: 36415; 36430; 80053; 82728; 83540; 83550; 83615; 84443; 85025; 86850; 86900; 86920; 96367; 96368; 96375; 96413; 96417; 99214; J0185; J1100; J1200; J1938; J2469; J3475; J3480; J3490; J7030; J7040; J7050; J9060; J9201; J9999; P9016